=== PATIENT | female | born 1945 | race Caucasian/White ===

== ENCOUNTER 2022-07-16 13:50 | Outpatient (CLI) | payer MEDICARE, SELFPAY ==
--- NOTE | ~2022-07-16 | XR_ITS ---
XR chest 2V 07/16/2022 14:05 Indication: Cough. Shortness of breath. Chest congestion. Procedure: 2 view chest Comparison: No prior studies for comparison. Findings: Left lung clear. Heart size normal. There is atherosclerosis. Small right pleural effusion. Right basilar compressive atelectasis. No pneumothorax. No acute osseous abnormality. Impression: 1: Small right pleural effusion with underlying compressive atelectasis. Reviewed, dictated and finalized at location A. NOMY MANAGER Impression: 1: Small right pleural effusion with underlying compressive atelectasis.
== END 2022-07-16 13:51 | disposition home or self-care (01) ==
LOC: ANHIMG 13:52
PROVIDERS: PCP Family Medicine; Visit Provider Physician Assistant
DX: J90 Pleural effusion, not elsewhere classified (principal)
CPT/HCPCS: 71046

== ENCOUNTER 2022-08-03 08:01 | Outpatient (CLI) | payer MEDICARE, SELFPAY ==
--- NOTE | 2022-08-03 13:56 | WPDPFTINT ---
PFT Procedure Performed PFT Procedure Performed Spirometry with Pre/Post Bronchodilator Plethysmography (Lung Vol) Diffusing Cap (DLCO) Flow Vol Loop PFT Interpretation This is a pulmonary function test with pre and post-bronchodilator spirometry, plethysmography and diffusing capacity. The test was performed and results interpreted in accordance with the 2019 and 2005 ATS/ERS Task Force guidelines respectively using the Global Lung Function Initiative-2012 reference equations. Patient demonstrated good effort and cooperation. Reproducibility criteria were met. The quality of the pre bronchodilator spirometry maneuver was Grade A and post bronchodilator spirometry maneuver was Grade A. Findings: Spirometry: There is decreased maximal expiratory airflow at low lung volumes with a concave expiratory flow tracing. The contour the inspiratory flow tracing is normal. The pre bronchodilator FVC is 2.30 L, 86% predicted. The pre bronchodilator FEV1 is 1.46 L, 71% predicted. The pre bronchodilator FEV1: FVC ratio 64%. The post bronchodilator FVC is 2.36 L, representing a 3% increase. The post bronchodilator FEV1 is 1.52 L, representing a 4% increase. The post bronchodilator FEV1: FVC ratio 65%. Plethysmography: The total lung capacity is 3.59 L, 71% predicted. The functional residual capacity is 2.07 L, 71% predicted. The residual volume is 1.29 L, 56% predicted. Diffusion capacity: The diffusing capacity unadjusted for hemoglobin and carboxyhemoglobin is 13.0, 66% predicted. The diffusing capacity adjusted for alveolar volume is 3.82, 91% predicted. Impression: There is a combined obstructive and restrictive ventilatory abnormality. There are no guidelines to assign the severity of obstruction and restriction with a combined abnormality. In my opinion, given the mildly concave expiratory flow tracing and normal FEV1: FVC ratio and mild restrictive abnormality I would state there is a minimal obstructive abnormality and a mild restrictive abnormality resulting in a mildly decreased FEV1. There is no significant improvement after inhaling a single dose of albuterol. The diffusing capacity unadjusted for hemoglobin and carboxyhemoglobin is mildly decreased and normalizes when adjusted for alveolar volume. There are no prior studies for comparison
== END 2022-08-03 08:02 | disposition home or self-care (01) ==
LOC: ANHPFT 08:02
PROVIDERS: PCP Family Medicine; Visit Provider Physician Assistant
DX: R05.9 Cough, unspecified (principal); R06.02 Shortness of breath; Z87.891 Personal history of nicotine dependence; R94.2 Abnormal results of pulmonary function studies
CPT/HCPCS: 94060; 94726; 94729

== ENCOUNTER 2022-08-12 08:20 | Outpatient (CLI) | payer MEDICARE, SELFPAY ==
--- NOTE | ~2022-08-12 | XR_ITS ---
XR chest 2V 08/12/2022 08:41 Indication: Cough. Dyspnea. Procedure: Cough. Chest congestion. Comparison: 07/16/2022 Findings: Small right pleural effusion. Right basilar atelectasis. Stable cardiomediastinal silhouett e. There is atherosclerosis. Left lung clear. No pneumothorax. No acute osseous abnormality. Impression: 1: Stable small right pleural effusion with adjacent atelectasis. Reviewed, dictated and finalized at location B. PRESIDENT OF BUSINESS DEVELOPMENT Impression: 1: Stable small right pleural effusion with adjacent atelectasis.
== END 2022-08-12 08:21 | disposition home or self-care (01) ==
PROVIDERS: PCP Family Medicine; Visit Provider Physician Assistant
DX: R05.9 Cough, unspecified (principal); J90 Pleural effusion, not elsewhere classified; J98.11 Atelectasis
CPT/HCPCS: 71046

== ENCOUNTER → 2022-08-19 12:05 | Outpatient (CLI) | payer MEDICARE, SELFPAY ==
--- NOTE | ~2022-08-19 | MM_ITS ---
EXAMINATION: MM screening andrzej BI w deloris HISTORY: Screening mammogram TECHNIQUE: Craniocaudal and mediolateral oblique 3-D tomosynthesis images were obtained and synthetic 2-D images were generated. CAD analysis was submitted and interpreted. COMPARISON: 12/31/2016, 01/31/2016, 12/06/2014 bilateral screening mammogram examinations BREAST PARENCHYMAL COMPOSITION: There are scattered areas of fibroglandular density. FINDINGS: There is no evidence of suspicious mass, calcification, or architectural distortion to sugg est malignancy in either breast. There has been no suspicious interval change. IMPRESSION: 1. No mammographic evidence of malignancy. 2. Recommend routine screening mammography in one year. BI-RADS Category 1: Negative Reviewed, dictated and finalized at location A. RAW SUGAR BOILER
--- NOTE | ~2022-08-19 | DEXA_ITS ---
Bone Density Report Name: WILLIAM TONY Age: 77 Sex: Female Ethnicity: White Date of : 1945 Indication: postmenopausal; screening for osteoporosis; height loss; hysterectomy; Referring Provider: Nevin Dueñas Study: Bone densitometry was performed. Exam Date: August 19, 2022 Accession number: [id number] Bone Density: Region BMD T-score Z-score Classification AP Spine (L1-L4) 1.105 0.5 3.0 Normal Femoral Neck (Left) 0.818 -0.3 1.8 Normal Total Hip (Left) 1.118 1.4 3.3 Normal Femoral Neck (Right) 0.960 1.0 3.1 Normal Total Hip (Right) 1.106 1.3 3.2 Normal Total Hip Mean 1.112 1.4 3.3 Normal World Health Organization criteria for BMD impression classify patients as: Normal (T-score at or above -1.0), Osteopenia (T-score between -1.0 and -2.5), or Osteoporosis (T-score at or below -2.5). 10-year Fracture Risk: FRAX not reported because: All T-scores for Spine Total, Hip Total, Femoral Neck at or above -1.0 Previous Exams: Region Exam Age BMD T-score BMD Change BMD Change Date g/cm2 vs Baseline vs Previous Total Hip(Left) 08/19/2022 77 1.118 1.4 -0.019 -0.019 01/16/2004 58 1.136 1.6 Total Hip(Right) 08/19/2022 77 1.106 1.3 -0.070 -0.070 01/16/2004 58 1.176 1.9 *Denotes significance at 95% confidence level, LSC for Total Hip = 0.027 g/cm2 Clinical Information Provided by Patient: Has the following medical conditions: Hysterectomy Patient maximum height was 64 Menopause Age: 50 Onset of menses at age 15 Number of children 3 Impression: The patient has normal bone mass. No significant bone loss was observed. Discussion: BONE DENSITY IS ABOVE THE MINIMUM DESIRABLE LEVEL AT ALL SKELETAL SITES TESTED. This patient?s bone mineral density is above the minimum desirable level (T-score -1.0 or better) at all sites measured. The patient should follow a healthful lifestyle (good nutrition with adequate calcium and vitamin D, and appropriate weight-bearing exercise). Follow-Up: Consider repeating this study in 5 years or sooner if there is some new clinical indication. Reported by: MICHAEL on 08/19/2022 12:25:00 PM. Reviewed, dictated and finalized at location AJohn MIRELES
== END ==
PROVIDERS: PCP Family Medicine; Visit Provider Nurse Practitioner Family
DX: Z12.31 Encounter for screening mammogram for malignant neoplasm of breast (principal); N95.8 Other specified menopausal and perimenopausal disorders
CPT/HCPCS: 77063; 77067; 77080

== ENCOUNTER 2022-08-25 08:22 | Inpatient (IN) | payer MEDICARE, SELFPAY ==
[2022-08-25] VITALS (50 sets, daily range): BP systolic 113–177; BP diastolic 65–131; PULSE 49–166; RESP 14–35; TEMP 36.5–36.9; O2SAT 89–97
--- NOTE | ~2022-08-25 | XR_ITS ---
XR chest 1V portable DATE: 08/25/2022 08:56 INDICATION: Shortness of breath for 4 months TECHNIQUE: Portable AP chest on 08/25/2022 at 0854 hours COMPARISON: August 12, 2022 PA and lateral chest FINDINGS: There is opacification of the lower approximately one third of the right hemithorax due to right pleural effusion and right lower lung atelectasis/infiltrate. The left lung is hyperinflated but clear of infiltrate or consolidation. Slight blunting of left cost ophrenic angle suggests minimal left pleural effusion. Heart size appears within normal limits. Is aortic calcification and tortuosity. There is pulmonary v ascular redistribution which may indicate mild pulmonary venous hypertension. Osteopenia. IMPRESSION: Persistent right pleural effusion and right lower lung infiltrate/atelectasis Minimal left pleural effusion Pulmonary vascular redistribution, which may indicate mild pulmonary venous hypertension Hyperinflation, which may indicate obstructive airways disease; the elderly chest considerably this a ppearance. Clinical correlation is advised Aortic atherosclerosis Osteopenia Reviewed, dictated and finalized at location L. POSTER INSTALLER IMPRESSION: Persistent right pleural effusion and right lower lung infiltrate/a telectasis Minimal left pleural effusion Pulmonary vascular redistribution, which may indicate mild pulmonary venous hyp ertension Hyperinflation, which may indicate obstructive airways disease; the elderly josh st considerably this appearance. Clinical correlation is advised Aortic atherosclerosis Osteopenia
--- NOTE | ~2022-08-25 | CT_ITS ---
EXAMINATION: CT diagnostic chest wo con DATE: 08/25/2022 17:43 INDICATION: Persistent right pleural eff, r/o CA TECHNIQUE: Computed tomography (CT) of the chest was performed with 100 mL Omnipaque-350 intravenous contrast. Automated exposure control and iterative reconstruction technique were employed. The dose-l ength product was 195.57 mGy-cm. COMPARISON: None. FINDINGS: CHEST: Thoracic aorta: Moderate arch ectasia and calcification. Lung parenchyma and airways: Right lower and middle lobe collapse. Occlusion of the right bronchus in termedius. 1.8 cm island of reticular/ground glass opacity in the posterior right upper lobe. Periphe ral reticular and ground glass opacities in the inferior aspect of the right upper lobe. 7 mm groundg lass nodule in the left upper lobe. Scattered tree-in-bud opacities. Senescent changes Thoracic inlet, axillae and chest wall: Lymphadenopathy at the thoracic inlet. No thyroid mass. Mediastinum: 4.9 cm right hilar mass versus conglomeration of lymph nodes which occludes the bronchus intermedius. Extensive mediastinal lymphadenopathy, measuring up to 6.6 cm in the right paratracheal space. Heart and pericardium: Normal heart size. Aortic valve and mitral annulus calcification. Trace perica rdial fluid. Coronary artery calcifications: Moderate. Pleura: Small volume right pleural fluid collection. Upper abdomen: 6.2 cm simple appearing left lobe liver cyst. Multiple additional hypodensities in the left liver lobe, concerning for metastatic disease.. Thoracic bones: No acute osseous finding in the chest. IMPRESSION: Right hilar mass versus conglomerate lymph nodes occlude the right bronchus intermedius, causing righ t middle lobe and right lower lobe collapse. Significant mediastinal lymphadenopathy. Thoracic inlet lymphadenopathy. Scattered pulmonary opacities may reflect infectious/inflammatory foci, noting that neoplastic lesions are not excluded. Small right pleural effusion. Multiple hypodensities in the live r concerning for metastatic disease, given the above findings. Reviewed, dictated and finalized at location K. S CONSULTANT IMPRESSION: Right hilar mass versus conglomerate lymph nodes occlude the right bronchus int ermedius, causing right middle lobe and right lower lobe collapse. Significant mediastinal lymphadenopathy. Thoracic inlet lymphadenopathy. Scattered pulmonar y opacities may reflect infectious/inflammatory foci, noting that neoplastic le sions are not excluded. Small right pleural effusion. Multiple hypodensities in the liver concerning for metastatic disease, given the above findings.
--- NOTE | ~2022-08-25 | US_ITS ---
EXAMINATION: US biopsy lymph node DATE: 08/27/2022 14:50 INDICATION: Right supraclavicular lymphadenopathy. TECHNIQUE: The procedure including the risks, benefits, and alternatives was discussed with the patie nt. Risks discussed included bleeding and infection. The patient understood the risks and agreed to p roceed. The skin overlying the right neck was prepped and draped in usual sterile fashion. Anestheti c was administered with 1% lidocaine subcutaneously. An 18 gauge core biopsy needle was then used to obtain 3 core biopsy specimens under continuous sonographic guidance. The entry site was cleaned and dressed. There were no immediate complications. FINDINGS: Ultrasound images demonstrate the needle in an enlarged right supraclavicular lymph node. IMPRESSION: 1. Ultrasound-guided core needle biopsy of an enlarged right supraclavicular lymph node. Reviewed, dictated and finalized at location A. R D ENGINEER IMPRESSION: 1. Ultrasound-guided core needle biopsy of an enlarged right supraclavicular ly mph node.
--- NOTE | 2022-08-25 08:41 | ECG_ITS ---
Measurements Intervals [place] Rate: 153 P: UT: 0 QRS: 9 QRSD: 81 T: 86 QT: 272 QTc: 434 Interpretive Statements ATRIAL FIBRILLATION WITH RAPID VENTRICULAR RESPONSE DELAYED PRECORDIAL R/S TRANSITION BORDERLINE ST-T WAVE ABNORMALITY- HIGH LATERAL LEADS BASELINE ARTIFACT- I, II, III, AVR, AVL, AVF, V6 ABNORMAL ECG NO PREVIOUS ECG AVAILABLE FOR COMPARISON Electronically Signed On 08-25-2022 13:10:56 HARDNESS INSPECTOR by Heriberto Spain D.O.
[2022-08-25] MEDS: dilTIAZem HCl INJ 25 MG/5 ML VIAL 20 MG IV PUSH (08:50)
[2022-08-25 08:51] LABS: Basophils Percent Auto 0.5 % (0.2-1.2); Eosinophils Absolute Auto 0.2 K/mm3 (0-0.3); Eosinophils Percent Auto 2.7 % (0-4.4); Hematocrit 44.9 % (37.0-47.0); Immature Granulocyte Absolute 0.07 K/mm3 (0.00-0.031); Immature Granulocyte Percent A 0.8 % (0-0.5); Lymphocytes Absolute Auto 1.28 K/mm3 (0.9-3.2); Lymphocytes Percent Auto 15.5 % (18.3-44.2); Mean Corpuscular HGB Conc 33.4 g/dl (32-36); Mean Corpuscular Hemoglobin 31.8 pg (26-34); Mean Corpuscular Volume 95.1 fl (80-100); Mean Platelet Volume 9.4 fl (7.4-10.4); Monocytes Absolute Auto 0.6 K/mm3 (0.1-0.6); Monocytes Percent Auto 7.1 % (2.6-8.5); Neutrophils Absolute Auto 6.1 K/mm3 (1.3-6.7); Neutrophils Percent Auto 73.4 % (45.5-73.1); Platelet Count Result 254 k/mm3 (150-375); Red Blood Count 4.72 M/mm3 (4.2-5.4); Red Cell Distribution Width 12.5 % (11.5-14.5); White Blood Count 8.3 K/mm3 (4.5-10.0)
[2022-08-25 09:01] LABS: Alanine Aminotransferase 25 U/L (6-35); Albumin Level 4.4 g/dL (3.5-5.1); Alkaline Phosphatase 95 U/L (38-126); Anion Gap 9 mmol/L (8-16); Aspartate Amino Transferase 29 U/L (14-36); Bilirubin,Total 0.6 mg/dL (0.2-1.3); Blood Urea Nitrogen 11 mg/dL (7-17); Calcium 9.6 mg/dL (8.4-10.2); Carbon Dioxide 27 mmol/L (22-30); Chloride 102 mmol/L (98-107); Estimated CRCL calculation 46 ml/min; Estimated Glomerular Filt Rate > 60; Glucose 160 mg/dL (65-110); Potassium 4.4 mmol/L (3.4-5.0); Sodium 138 mmol/L (137-145)
[2022-08-25 09:04] LABS: Prothrombin Time 12.6 Seconds (11.1-14.7)
[2022-08-25] MEDS: dilTIAZem 100 MG/100 ML 100 MG/100 ML BAG 10 MG IV CONT (09:04)
[2022-08-25 09:12] LABS: NT Pro B Type Natriuretic Pept 2680 pg/mL (19.9-100); Troponin I < 0.012 ng/mL (0.000-0.034)
--- NOTE | 2022-08-25 09:14 | PC.NURSE ---
Dr. Barr gave verbal order diltiazem at 10mg/hr.
--- NOTE | 2022-08-25 09:29 | ED.SOB ---
HPI - SOB/Dyspnea General Chief Complaint: Shortness of Breath/Dyspnea Stated Complaint: SOB Time Seen by Provider: 08/25/22 08:39 History of Present Illness HPI Narrative: Pt has been getting SOB with exertion for months. Pt thought it was related to a viral infection she had. Pt denies CP. Pt says she has noticed her heart beating fast intermittently but not persistently until this morning. Pt denies CP. Pt does feel SOB on exertion but not at rest. Related Data Allergies Allergy/AdvReac Type Severity Reaction Status Date / Time loratadine Allergy Unknown unk Verified 08/14/22 13:01 Review of Systems Review of Systems: All systems reviewed & are unremarkable except as noted in HPI and below PMFSH Past Medical History Medical History (Updated 08/25/22 @ 16:34 by Maria Fernanda Masters MD) Depression with anxiety Essential hypertension Gout Mixed hyperlipidemia Type 2 diabetes mellitus without complications Surgical History Surgical History (Updated 08/25/22 @ 16:29 by Maria Fernanda Masters MD) H/O: hysterectomy For fibroids Family History Family History (Updated 08/25/22 @ 14:13 by Adenike Phoenix NP) Mother Chronic obstructive pulmonary disease Other Alcoholism Social History Social History (Updated 08/25/22 @ 16:29 by Maria Fernanda Masters MD) Social History: 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 She is . She quit smoking many years ago. Code status full code Smoking packs per day: 2 Smoking cigarettes per day: 40.0 Years smoked: 15 Smoking pack-years: 30.00 Smoking status: Former smoker Tobacco type: cigarettes Second hand tobacco smoke exposure: No Smoking end date: 06/21/01 Alcohol intake: never Substance use: never Living arrangements: with family Occupation/Education: retired Gender identity (if verbalized by the patient): Female Sexual Orientation (if Verbalized by the Patient): Straight or Heterosexual Exam Const: General: healthy appearing Nutritional Appearance: well nourished Orientation/consciousness: patient oriented x3 Limitations: no limitations Neck: Neck: normal visual inspection Resp: Effort & Inspection: normal respiratory effort Auscultation: clear to auscultation bilaterally Cardio: Rate: tachycardic Rhythm: abnormal rhythm GI: GI Palp: Yes Soft to palpation Auscultation: normal bowel sounds Skin: General skin exam: normal color Neuro: General: patient oriented x3, moves all extremities and no focal motor deficits Speech: normal speech Extrem: General: normal to inspection and no clubbing, cyanosis or edema Psych: Mental Status: mental status grossly normal Affect: normal affect Attitude: cooperative Course Vital Signs Vital signs: Vital Signs Temperature 97.7 F 08/25/22 08:32 Respiratory Rate 19 08/25/22 08:32 Blood Pressure 177/119 H 08/25/22 08:32 Pulse Oximetry 95 08/25/22 08:32 Oxygen Delivery Room Air 08/25/22 08:32 Temperature 98.5 F 08/25/22 12:23 Pulse Rate 70 08/25/22 18:05 Respiratory Rate 18 08/25/22 16:00 Blood Pressure 113/97 H 08/25/22 16:00 Pulse Oximetry 94 08/25/22 16:00 Oxygen Delivery Room Air 08/25/22 08:48 MDM - SOB/Dyspnea MDM Narrative Medical decision making narrative: a fib with rvr present on ekg kasandra been in a fib for months given SOB on exertion. Will start cardizem bolus and drip for rate control and check labs to rule out electolyte issue or cardiac injury. pt will need admission for further evaluation. discussed with Dr Lawler and agrees to admit. discussed with lisseth Osullivan cardiology and they will see pt. Lab Data 08/25/22 08:45 08/25/22 08:45 Labs: Lab Results 08/25/22 08/25/22 08/25/22 Range/Units 08:45 08:45 08:45 WBC 8.3 (4.5-10.0) K/mm3 RBC 4.72 (4.2-5.4) M/mm3 Hgb 15.0 (12.0-15.0) g/dL Hct 44.9 (
--- NOTE | 2022-08-25 09:38 | PC.NURSE ---
Patient stated that she has not taken any of her medication today.
[2022-08-25] MEDS: FUROSEMIDE INJ 40 MG/4 ML VIAL 20 MG IV PUSH (10:09)
[2022-08-25 12:27] LABS: Troponin I < 0.012 ng/mL (0.000-0.034)
--- NOTE | 2022-08-25 12:27 | PM.IMHP ---
H&P: HPI History of Present Illness Date/Time: 08/25/22 12:27 Chief Complaint: Shortness of breath Narrative: This is a 77-year-old female patient who has been coughing and states that she has been dealing with shortness of breath for several months. The patient feels like she has an upper respiratory infection that may be viral. She has no prior history of atrial fibrillation. The patient states that she is unaware of any diagnosis of atrial fibrillation but she does have intermittent palpitations. The patient does not wear oxygen at home and she feels more short of breath with exertion. Shortness of breath is relieved with rest. Her glucose is 160. She does have a history of diabetes. First troponin is negative BNP is 2680. Chest x-ray was read asPersistent right pleural effusion and right lower lung infiltrate/atelectasis Minimal left pleural effusion Pulmonary vascular redistribution, which may indicate mild pulmonary venous hypertension Hyperinflation, which may indicate obstructive airways disease; the elderly chest considerably this appearance. Clinical correlation is advised Aortic atherosclerosis Osteopenia?the patient stated that she has had pulmonary function test and stated she does not have COPD. The patient was found to be in AFib with RVR she was given Cardizem IV and then started on a Cardizem drip. She was also given IV Lasix. The patient is being admitted to observation status on the date of service of 08/25/2022. Review of Systems Review of Systems: See HPI All systems reviewed & are unremarkable except as noted in HPI and below Constitutional: Constitutional: Reports as per HPI and Reports no additional constitutional complaints Eyes: Eyes: Reports as per HPI and Reports no additional eye complaints ENT: Reports system reviewed and no additional complaints, except as documented and Reports Normal hearing present Cardiovascular: Cardiovascular: Reports no additional cardiovascular complaints Respiratory: Respiratory: Reports no additional respiratory complaints and Reports no additional respiratory complaints Gastrointestinal: Gastrointestinal: Reports as per HPI and Reports no additional gastrointestinal complaints Musculoskeletal: Musculoskeletal: Reports no additional musculoskeletal complaints Integumentary/Breasts: Skin/Breast: Reports system reviewed and no additional complaints, except as docu and Reports as per HPI Neurologic: Reports system reviewed and no additional complaints, except as documented, Reports as per HPI and Reports Normal hearing present Psychiatric: Psychiatric: Reports no additional psychiatric complaints and Reports as per HPI Endocrine: Endocrine: Reports no additional endocrine complaints Hematologic/Lymphatic: Hematologic/Lymphatic: Reports no additional hematologic/lymphatic complaints Allergic/Immunologic: Allergic/Immunologic: Reports no additional allergic/immunologic complaints PMF Past Medical History Medical History (Updated 08/25/22 @ 14:12 by Adenike Phoenix NP) Depression with anxiety Essential hypertension Gout Mixed hyperlipidemia Type 2 diabetes mellitus without complications Surgical History Surgical History (Updated 08/25/22 @ 14:11 by Adenike Phoenix NP) H/O: hysterectomy Family History Family History (Updated 08/25/22 @ 14:13 by Adenike Phoenix NP) Mother Chronic obstructive pulmonary disease Other Alcoholism Social History Social History (Updated 08/25/22 @ 14:17 by Adenike Phoenix NP) Social History: 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 She quit smoking many years ago. Code status full code Smoking packs per day: 2 Smoking cigarettes per day: 40.0 Years smoked: 15 Smoking pack-years: 30.00 Smoking status: Former smoker Tobacco type: cigarettes Second hand tobacco smoke exposure: No Smoking end date: 06/21/01 Alcohol intake: never [place]
[2022-08-25 15:38] LABS: Troponin I < 0.012 ng/mL (0.000-0.034)
--- NOTE | 2022-08-25 15:42 | PM.CNCAR ---
Assessment and Plan Assessment and plan (1) Atrial fibrillation with rapid ventricular response: Code(s): I48.91 - Unspecified atrial fibrillation Status: Acute Assessment and Plan: New onset of acute AFib RVR, uncertain duration. Rate is coming under control with IV Cardizem; add po metoprolol Continue full-dose Lovenox for now, later switch to a DOAC Likely will proceed with a cardioversion either later this hospitalization (with ABRIL) or after 4 weeks of anticoagulation as an outpatient Echo pending (2) Acute diastolic heart failure: Code(s): I50.31 - Acute diastolic (congestive) heart failure Status: Acute Assessment and Plan: Patient presents with acute diastolic heart failure, likely due to AFib RVR, rule out underlying cardiomyopathy. Continue furosemide 40 mg IV push b.i.d. Echo pending to assess LV function and for any valvular disease TSH pending Daily BMP Anti-tussives for cough (3) Pleural effusion: Code(s): J90 - Pleural effusion, not elsewhere classified Status: Acute Assessment and Plan: Patient had a moderate sized isolated right pleural effusion by chest x-rays in June and July, when she was not in heart failure. This is concerning for an underlying malignancy CT of the chest Consider diagnostic thoracentesis if it does not resolve w/ diuresis (4) Essential hypertension: Code(s): I10 - Essential (primary) hypertension Status: Acute Assessment and Plan: Mildly elevated; adjusting medications History of Present Illness History of Present Illness Consult date/time: 08/25/22 15:42 Reason For Visit: A Fib With RVR Narrative: Jessica Waldron is a 77-year-old female whom I was asked to see at the request of Adenike Phoenix for my advice and opinion regarding her new onset AFib RVR, in consultation. She also has a history of hypertension, mixed hyperlipidemia, diabetes, and depression. Former smoker. No h/o heart disease. The patient had an upper respiratory infection in April and has been short of breath with a minimally productive cough since then. She has been back to see Dr. Callahan and his PA over last few months and has been tried on 3 inhalers, a Medrol Dosepak and antibiotics without improvement. When she has been in the office, her heart rate has been in the 70s. However she has noted palpitations sometimes particularly with coughing. She has gotten progressively weaker, with more coughing, more shortness of breath, and no energy. She has no appetite and has lost 8-10 lb. No fevers, chest pain, history of cancer or thyroid disease. No bleeding problems. Was able to walk 1.5-2 miles daily until this illness. She was found to be in AFib RVR in the emergency room and started on a Cardizem drip at 15 milligrams/hour, and Lovenox full dose. Her heart rate has improved from 150s down to 110. She is also found to be in congestive heart failure. She was given 1 dose of furosemide 20 mg IV push. Review of Systems Constitutional: Constitutional: Reports difficulty sleeping (Due to frequent coughing), Reports fatigue, Denies fever(s), Reports lethargy and Reports weakness Eyes: Eyes: Reports no additional eye complaints ENT: Denies epistaxis Cardiovascular: Cardiovascular: Denies chest pain, Denies pedal edema, Denies lightheadedness, Reports palpitations and Reports dyspnea Respiratory: Respiratory: Reports chest congestion, Reports cough, Reports dyspnea and Reports dyspnea on exertion Gastrointestinal: Gastrointestinal: Denies abdominal pain and Denies hematochezia Genitourinary: Genitourinary: Denies hematuria Musculoskeletal: Musculoskeletal: Reports no additional musculoskeletal complaints Integumentary/Breasts: Skin/Breast: Reports system reviewed and no additional complaints, except as docu Neurologic: Reports system reviewed and no additional complaints, except as documented, Denies behavior
[2022-08-25 16:50] LABS: Glucose Point of Care 129 mg/dl (65-105)
--- NOTE | 2022-08-25 17:21 | ADMIMU ---
This patient, Jessica Waldron, was admitted to IMU status, and placed in Intensive Care Unit-5. Patient/family oriented to hospital policies and general routines including ID bracelet, bed and alarms, visiting hours, pain management, procedures, bathroom and other care routines, personal items, smoking policy, room service/diet, and visiting hours. Valuables list has been completed. Information on how to activate the Rapid Response Team has been discussed. Patient/Family are encouraged to report perceived risks to care and to ask questions if they do not understand what they are told or what they should do.
[2022-08-25] MEDS: FUROSEMIDE INJ 40 MG/4 ML VIAL IV PUSH (18:04)
[2022-08-25] MEDS: ENOXAPARIN 80 MG/0.8 ML SYRINGE SUB-Q (18:05)
[2022-08-25] MEDS: METOPROLOL TARTRATE 25 MG TABLET PO (18:05)
--- NOTE | 2022-08-25 18:38 | ECG_ITS ---
Rate 72 WV 153 QRSd 90 QT 413 QTc 454 --[place]-- P 214 QRS 147 T 99 SINUS RHYTHM LIMB LEAD REVERSAL ATRIAL AND VENTRICULAR PREMATURE COMPLEXES BASELINE ARTIFACT- I, II, III, AVR, AVL, AVF, V5 BORDERLINE ECG COMPARED TO ECG 08/25/2022 08:37:25 SINUS RHYTHM NOW PRESENT Electronically Signed On 08-27-2022 13:31:26 SYSTEM SOFTWARE DEVELOPER by Heriberto MIRELES
[2022-08-25] MEDS: guaiFENesin/DEXTROMETHORPHAN 10 ML UDC PO (20:52)
[2022-08-25 20:57] LABS: Glucose Point of Care 156 mg/dl (65-105)
[2022-08-26] VITALS (14 sets, daily range): BP systolic 111–152; BP diastolic 58–88; PULSE 56–83; RESP 16–23; TEMP 36.6–37.2; O2SAT 92–95; BMI 31.4
--- NOTE | 2022-08-26 | ECHO_ITS ---
Patient Info Name: Jessica Waldron Age: 77 years : 1945 Gender: Female Ht: 62 in Wt: 175 lbs BSA: 1.90 m2 HR: 62 bpm BP: 127 / 58 mmHg Heart Rhythm: Sinus Rhythm Technical Quality: Fair Exam Date: 08/26/2022 8:27 AM Exam Location: [facility] Patient Status: Outpatient Admit Date: 08/25/2022 Staff Ordering Physician: Donna Lawler MD Certified Recreational Therapist: Zoila Redding RDCS Attending Provider: Donna Lawler MD Exam Type: CA echo doppler color flow Study Info Indications - afib Complete two-dimensional, color flow and Doppler transthoracic echocardiogram is performed. Summary 1. Complete two-dimensional, color flow and Doppler transthoracic echocardiogram is performed. 2. Left ventricular chamber dimension is normal. 3. Left ventricular systolic function is normal, estimated at 55-60%. 4. Right ventricular systolic function is normal. 5. Left atrial chamber dimension is mildly enlarged. 6. There is moderate aortic valve calcification. 7. There is mild aortic valve regurgitation. 8. The mitral valve has thickened leaflets and calcified leaflets. 9. The mitral valve annulus is moderately calcified. 10. There is moderate mitral valve regurgitation with an eccentric jet. 11. There is mild tricuspid valve regurgitation. 12. There is mild aortic atherosclerosis. Left Ventricle Left ventricular chamber dimension is normal. Left ventricular systolic function is normal, estimated at 55-60%. There is no increased left ventricular wall thickness. The left ventricular diastolic function is indeterminate. Right Ventricle Right ventricular chamber dimension is normal. Right ventricular systolic function is normal. Left Atria Left atrial chamber dimension is mildly enlarged. Right Atria Right atrial chamber dimension is normal. Atrial Septum Intact interatrial septum visualized by color flow imaging. Aortic Valve The aortic valve is trileaflet. There is no aortic valve stenosis. There is mild aortic valve regurgitation. There is moderate aortic valve calcification. Pulmonic Valve The pulmonic valve is not well visualized. Mitral Valve The mitral valve has thickened leaflets and calcified leaflets. There is no mitral valve stenosis. There is moderate mitral valve regurgitation with an eccentric jet. The mitral valve annulus is moderately calcified. Tricuspid Valve There is mild tricuspid valve regurgitation. Pericardium/Pleural There is no pericardial effusion. Inferior Vena Cava Normal inferior vena cava with >50% collapse upon inspiration consistent with normal right atrial pressure, 3 mmHg. Aorta The aortic root size at the sinus of Valsalva is normal. There is mild aortic atherosclerosis. Left Ventricular Outflow Tract Name Value Normal LVOT 2D LVOT Diameter 2.0 cm LVOT Doppler LVOT Peak Gradient 3 mmHg LVOT Mean Gradient 2 mmHg LVOT VTI 22 cm LVOT VTI/AV VTI Ratio 0.6 LVOT Stroke Volume 72 ml
[2022-08-26 04:58] LABS: Basophils Percent Auto 0.6 % (0.2-1.2); Eosinophils Absolute Auto 0.2 K/mm3 (0-0.3); Eosinophils Percent Auto 3.3 % (0-4.4); Hematocrit 41.1 % (37.0-47.0); Hemoglobin 13.7 g/dL (12.0-15.0); Immature Granulocyte Absolute 0.04 K/mm3 (0.00-0.031); Immature Granulocyte Percent A 0.6 % (0-0.5); Lymphocytes Absolute Auto 1.39 K/mm3 (0.9-3.2); Mean Corpuscular HGB Conc 33.3 g/dl (32-36); Mean Corpuscular Hemoglobin 31.4 pg (26-34); Mean Corpuscular Volume 94.1 fl (80-100); Mean Platelet Volume 9.6 fl (7.4-10.4); Monocytes Absolute Auto 0.6 K/mm3 (0.1-0.6); Neutrophils Absolute Auto 4.1 K/mm3 (1.3-6.7); Neutrophils Percent Auto 64.5 % (45.5-73.1); Platelet Count Result 230 k/mm3 (150-375); Red Blood Count 4.37 M/mm3 (4.2-5.4); Red Cell Distribution Width 12.5 % (11.5-14.5); White Blood Count 6.3 K/mm3 (4.5-10.0)
[2022-08-26 05:09] LABS: Magnesium 1.9 mg/dL (1.6-2.3)
[2022-08-26 05:12] LABS: Lactic Acid Reflex 1.2 mmol/L (0.7-2.0)
[2022-08-26] MEDS: ENOXAPARIN 80 MG/0.8 ML SYRINGE SUB-Q (06:36)
[2022-08-26] MEDS: METOPROLOL TARTRATE 25 MG TABLET PO ×3 (06:36→21:44)
[2022-08-26] MEDS: guaiFENesin/DEXTROMETHORPHAN 10 ML UDC PO ×3 (06:36→23:36)
[2022-08-26] MEDS: UMECLIDINIUM/VILANTEROL 62.5-25 MCG ELLIPTA 1 PUFF INHALATION (08:11)
[2022-08-26] MEDS: FUROSEMIDE INJ 40 MG/4 ML VIAL IV PUSH (09:31)
[2022-08-26 09:35] LABS: Glucose Point of Care 152 mg/dl (65-105)
[2022-08-26 11:56] LABS: Glucose Point of Care 140 mg/dl (65-105)
[2022-08-26 13:48] LABS: Hemoglobin A1C 6.7 % (<5.7)
--- NOTE | 2022-08-26 14:35 | PM.PNCARD ---
Progress Note: A&P Assessment and Plan (1) Atrial fibrillation with rapid ventricular response: Code(s): I48.91 - Unspecified atrial fibrillation Status: Acute Assessment and Plan: New onset of acute AFib RVR, uncertain duration. converted to sinus rhythm; continue p.o. metoprolol Continue full-dose Lovenox for now as the patient may need procedures, later switch to a DOAC (2) Acute diastolic heart failure: Code(s): I50.31 - Acute diastolic (congestive) heart failure Status: Acute Assessment and Plan: Patient presents with acute diastolic heart failure, likely due to AFib RVR, rule out underlying cardiomyopathy. resolved. DC furosemide (3) Pleural effusion: Code(s): J90 - Pleural effusion, not elsewhere classified Status: Acute Assessment and Plan: Patient had a moderate sized isolated right pleural effusion by chest x-rays in June and July, when she was not in heart failure. CT of the chest suggests and malignancy with right hilar mass and lymphadenopathy is well as possible liver lesions Discussed with patient and family; has a mass or tumor, could be cancer. Understandably upset. needs a biopsy discussed with hospitalist. Will consult Pulmonary to see if bronchoscopy may help but also may need CT-guided biopsies and/or thoracentesis Family requests diagnosis and plan expedited (4) Essential hypertension: Code(s): I10 - Essential (primary) hypertension Status: Acute Assessment and Plan: Mildly elevated; adjusting medications Subjective Date/time seen: follow-up for AFib new onset, rapid ventricular response. New onset of acute diastolic heart failure. Echo showed EF 55-60% with moderate MR. She has a chronic right pleural effusion and CT scan this admission showed a right hilar mass and lymphadenopathy, possible hepatic masses. 08/26/22 14:35 Pt converted to normal sinus rhythm and is breathing better but still has a lot of coughing. daughter Holly and granddaughter at bedside Review of Systems Review of Systems: able to walk across room without shortness of breath. Frequent coughing kept her awake again last night. Does not like codeine. No dizziness or chest pain. Exam Const: General: cooperative, healthy appearing and comfortable; No confusion Orientation/consciousness: oriented to person, patient oriented x3 and No confusion HENMT: Mouth: Yes moist mucous membranes Eyes: EOM: EOMs intact bilaterally Neck: Neck: supple Resp: Effort & Inspection: normal respiratory effort Auscultation: diminished lung sounds on the right ( Base) Cardio: Rate: regular rate Rhythm: regular rhythm Heart sounds: no murmurs GI: Inspection: normal to inspection GI Palp: No abdominal tenderness Skin: General skin exam: normal color and no rashes or lesions noted Neuro: General: oriented to person, patient oriented x3 and No confusion Extrem: Right lower extremity: no edema Left lower extremity: no edema Psych: Appearance: grossly normal Mental Status: mental status grossly normal Objective Data Vital Signs Vital Signs: Vital Signs - 24 hr 08/25/22 16:00 08/25/22 16:00 08/25/22 18:05 Temperature Pulse Rate 64 82 70 Respiratory Rate 18 Blood Pressure 113/97 H Pulse Oximetry 94 Oxygen Delivery Fraction of Inspired Oxygen 08/25/22 20:00 08/25/22 20:00 08/25/22 20:00 Temperature 98.2 F Pulse Rate 63 62 62 Respiratory Rate 18 Blood Pressure 135/72 Pulse Oximetry 95 93 Oxygen Delivery Room Air Fraction of Inspired Oxygen 08/25/22 21:53 08/25/22 22:19 08/26/22 00:00 Temperature Pulse Rate 58 L 49 L 63 Respiratory Rate Blood Pressure Pulse Oximetry 95 Oxygen Delivery Room Air Fraction of Inspired Oxygen 08/26/22 00:00 08/26/22 00:00 08/26/22 03:48 Temperature 98 F Pulse Rate 56 L 56 L 59 L Respiratory Rate 18 Blood Pressure 127/58
--- NOTE | 2022-08-26 14:57 | PM.IMPN ---
Progress Note: A&P Assessment and Plan (1) Atrial fibrillation with rapid ventricular response: Code(s): I48.91 - Unspecified atrial fibrillation Status: Acute Assessment and Plan: New onset of acute AFib RVR, uncertain duration. Started on Cardizem drip now converted to sinus rhythm On metoprolol oral Full-dose Lovenox currently may need to hold for potential biopsy (2) Type 2 diabetes mellitus without complications: Qualifiers: Diabetes mellitus detention insulin use: without local intermodal truck driver use Qualified Code(s): E11.9 - Type 2 diabetes mellitus without complications Code(s): E11.9 - Type 2 diabetes mellitus without complications Status: Acute Assessment and Plan: Check A1c Hypoglycemic protocol Sliding scale insulin Hold metformin (3) Mixed hyperlipidemia: Code(s): E78.2 - Mixed hyperlipidemia Status: Acute Assessment and Plan: Atorvastatin (4) Essential hypertension: Code(s): I10 - Essential (primary) hypertension Status: Acute Assessment and Plan: Stable (5) Gout: Code(s): M10.9 - Gout, unspecified Status: Acute (6) Depression with anxiety: Code(s): F41.8 - Other specified anxiety disorders Status: Acute (7) Acute diastolic heart failure: Code(s): I50.31 - Acute diastolic (congestive) heart failure Status: Acute Assessment and Plan: Patient presents with acute diastolic heart failure, likely due to AFib RVR, rule out underlying cardiomyopathy. This is resolved (8) Pleural effusion: Code(s): J90 - Pleural effusion, not elsewhere classified Status: Acute Assessment and Plan: Right pleural effusion which has been persistent since June. CT chest with right hilar mass lymphadenopathy and potential liver lesions Suggested biopsy of the liver lesions Discussed with pulmonary Further workup in process Subjective Date/time seen: 08/26/22 14:57 Interval history: Cough ongoing since past 4 months denies shortness of breath. AFib back to sinus rhythm discussed with cardiology and pulmonary Review of Systems Review of Systems: All systems reviewed & are unremarkable except as noted in HPI and below Exam Narrative: GENERAL: The patient is well developed, not in acute distress HEENT: Nonicteric sclerae, PERRLA, EOMI. Oropharynx clear. Moist mucous membranes. Conjunctivae appear well perfused. CHEST: Chest wall is nontender. HEART: Regular rate and rhythm without murmur, rubs, or gallops LUNGS: Clear to auscultation bilaterally. no respiratory distress ABDOMEN: Soft, positive bowel sounds, non-tender, no organomegaly. SKIN: No rash, no excessive bruising, petechiae, or purpura. NEUROLOGIC: Cranial nerves II-XII intact, alert and oriented x 3, no gross motor deficits EXTREMITIES: no edema, cyanosis or clubbing Objective Data Vital Signs Vital Signs: Vital Signs - 24 hr 08/25/22 16:00 08/25/22 16:00 08/25/22 18:05 Temperature Pulse Rate 64 82 70 Respiratory Rate 18 Blood Pressure 113/97 H Pulse Oximetry 94 Oxygen Delivery Fraction of Inspired Oxygen 08/25/22 20:00 08/25/22 20:00 08/25/22 20:00 Temperature 98.2 F Pulse Rate 63 62 62 Respiratory Rate 18 Blood Pressure 135/72 Pulse Oximetry 95 93 Oxygen Delivery Room Air Fraction of Inspired Oxygen 08/25/22 21:53 08/25/22 22:19 08/26/22 00:00 Temperature Pulse Rate 58 L 49 L 63 Respiratory Rate Blood Pressure Pulse Oximetry 95 Oxygen Delivery Room Air Fraction of Inspired Oxygen 08/26/22 00:00 08/26/22 00:00 08/26/22 03:48 Temperature 98 F Pulse Rate 56 L 56 L 59 L Respiratory Rate 18 Blood Pressure 127/58 L Pulse Oximetry 92 93 Oxygen Delivery Room Air Fraction of Inspired Oxygen 08/26/22 03:48 08/26/22 04:00 08/26/22 06:36 Temperature 98.5 F Pulse Rate 59 L 62 63 Respiratory Rate 18 Blood Pressure 12
--- NOTE | 2022-08-26 16:24 | PM.CNPUL ---
Assessment and Plan Assessment and plan (1) Lung mass: Code(s): R91.8 - Other nonspecific abnormal finding of lung field Status: Acute Assessment and Plan: patient with a 14 pack year tobacco use, quit 1991, now with a right upper lobe posterior segment 1 0.8 cm ground-glass opacity, 4.9 cm right hilar mass versus lymph nodes and includes the bronchus intermedius with extensive mediastinal lymphadenopathy and right supraclavicular lymph nodes. There are multiple cysts in the liver. I reviewed the imaging with Dr. Lopez and will initiate the workup with a ultrasound-guided biopsy of the right supraclavicular lymph node. I discussed the benefits and risks with the patient and she is willing to proceed. I have ordered this test for 08/27/2022 and I discussed her full-dose Lovenox with the radiology department and she can receive her dose on 08/26/2022 at 6:00 p.m. and then will discontinue the Lovenox. Regarding her cough, I will place the patient on benzonatate 200 mg t.i.d. and guaifenesin DM 10 mg p.o. q.6 hours. I see no evidence of emphysematous changes on her CT scan and I am not convinced she has COPD and will discontinue the Anoro Ellipta. Will follow with you. Discussed with Dr. De Souza and John. History of Present Illness History of Present Illness Consult date: 08/26/22 Chief complaint: A Fib With RVR Narrative: 08/26/2022: This is a new pulmonary consult for right lung mass. 77-year-old with a history of hypertension. In April of 2022 the patient developed sore throat, cough and congestion. She was seen by her PCP on 07/13 and given steroids and antibiotics and an albuterol inhaler and this provided no benefit. chest x-ray on 07/16/2022 showed a small right pleural effusion. In July of 2022 she was given a 2nd inhaler and had a repeat chest x-ray on 08/12/2022 with a stable right small pleural effusion. In August of 2022 patient had persistent symptoms and was given prednisone with no improvement. Patient has dyspnea on exertion progressively got worse and she used to walk 2 miles over 45 minutes and she could only walk room to room and she presented to the hospital on 08/25/2022. Patient was found to be in AFib with RVR. Patient had a chest x-ray with right pleural effusion and right lower lung consolidation and a CT scan of the chest demonstrated a right hilar mass, right supraclavicular lymph nodes and cystic lesions of the liver. Throughout all this the patient denied fever, chills, rigors, chest pain. She tested herself 8 times for [place] it and they were all negative. She has never had hemoptysis. She has 5 lb weight loss in the last 3 months. Patient smoked tobacco from age [age] at 1 pack per day and from age [age] at 1 pack per day. Total pack years 14. Patient was exposed to secondhand smoke from both of her parents and from her until age 26. patient denies any vaping, illicit drug use, sandblasting, welding, asbestos were, professional painting or steel ball mill mixer. 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 In the emergency room the patient was found to be in AFib with RVR and was treated with a Cardizem drip and converted to sinus rhythm. She was treated with full-dose Lovenox. She has converted to sinus rhythm. 08/26 currently the patient complains of dry cough. Room air saturations are 93%. White blood cell count is 6.3, creatinine was 0.9 on 08/25/2022. DATA 08/25/2022 EXAMINATION: CT diagnostic chest wo con INDICATION: Persistent right pleural eff, r/o CA TECHNIQUE: Computed tomography (CT) of the chest was performed with 100 mL Omnipaque-350 intravenous contrast. Automated exposure control and iterative reconstruction technique were employed. The dose-length product was 195.57 mGy-cm. COMPARISON: None. FINDINGS: CHEST: Thoracic aorta: Moderate arch ectasia and calcification. Lung parenchyma and air
[2022-08-26 16:49] LABS: Glucose Point of Care 151 mg/dl (65-105)
[2022-08-26] MEDS: BENZONATATE 100 MG CAPSULE 200 MG PO (17:20)
[2022-08-26] MEDS: ATORVASTATIN 20 MG TABLET PO (21:44)
[2022-08-26 21:53] LABS: Glucose Point of Care 147 mg/dl (65-105)
[2022-08-26] MEDS: MELATONIN 5 MG TABLET PO ×2 (22:17→23:26)
[2022-08-27] VITALS (34 sets, daily range): BP systolic 110–154; BP diastolic 66–93; PULSE 48–161; RESP 8–29; TEMP 36.8–37; O2SAT 91–100
[2022-08-27 08:10] LABS: Glucose Point of Care 164 mg/dl (65-105)
[2022-08-27] MEDS: METOPROLOL TARTRATE 25 MG TABLET PO ×3 (08:46→21:15)
[2022-08-27] MEDS: METOPROLOL TARTRATE INJ 5 MG/5 ML VIAL IV PUSH (08:46)
[2022-08-27] MEDS: dilTIAZem 100 MG/100 ML 100 MG/100 ML BAG IV CONT (09:45)
--- NOTE | 2022-08-27 10:55 | PM.PNCARD ---
Progress Note: A&P Assessment and Plan (1) Atrial fibrillation with rapid ventricular response: Code(s): I48.91 - Unspecified atrial fibrillation Status: Acute Assessment and Plan: New onset of acute AFib RVR, uncertain duration. converted to sinus rhythm, but now back and AFib RVR increase Cardizem drip to 10 milligrams/hour, also Cardizem 10 mg IV push p.r.n. for tachycardia Increase metoprolol to 37.5 mg q 8H looks like the AFib may be difficult to control;may need to add p.o. amiodarone. Reviewed risks of long-term side effects. Continue full-dose Lovenox for now as the patient may need procedures, later switch to a DOAC (2) Acute diastolic heart failure: Code(s): I50.31 - Acute diastolic (congestive) heart failure Status: Acute Assessment and Plan: Patient presents with acute diastolic heart failure, likely due to AFib RVR, rule out underlying cardiomyopathy. resolved, euvolemic. Furosemide discontinued. (3) Pleural effusion: Code(s): J90 - Pleural effusion, not elsewhere classified Status: Acute Assessment and Plan: Patient had a moderate sized isolated right pleural effusion by chest x-rays in June and July, when she was not in heart failure. CT of the chest suggests and malignancy with right hilar mass and lymphadenopathy is well as possible liver lesions Seen by Pulmonary, hoping is supraclavicular node biopsy done today. (4) Essential hypertension: Code(s): I10 - Essential (primary) hypertension Status: Acute Assessment and Plan: Mildly elevated; adjusting medications Subjective Date/time seen: Follow-up for AFib new onset, rapid ventricular response.? New onset of acute diastolic heart failure.? Echo showed EF 55-60% with moderate MR.? She has a chronic right pleural effusion and CT scan this admission showed a right hilar mass and lymphadenopathy, possible hepatic masses. 08/26/22? 14:35? Pt converted to normal sinus rhythm and is breathing better but still has a lot of coughing. daughter Holly and granddaughter at bedside. Reviewed results of CT scan. Cont metoprolol and Lovenox. 08/27/22 10:55 Unfortunately patient went back and AFib RVR this morning. She was given her p.o. metoprolol and a dose of IV metoprolol, then a Cardizem drip at 5 milligrams/hour but heart rate remains 120-130. Patient is asymptomatic. Daughter and granddaughter at the bedside. Still coughing a lot, not getting any sleep. Supraclavicular biopsy on hold due to AFib RVR. Review of Systems Review of Systems: No chest pain, shortness breathing is better, ongoing mostly dry cough, some nausea as she has not had any breakfast, no dizziness been Exam Const: General: cooperative, healthy appearing and comfortable; No confusion Orientation/consciousness: oriented to person, patient oriented x3 and No confusion Other: tired and stressed daughter and granddaughter at bedside HENMT: Mouth: Yes moist mucous membranes Eyes: EOM: EOMs intact bilaterally Neck: Neck: supple Resp: Effort & Inspection: normal respiratory effort Auscultation: diminished lung sounds ( right lower lobe) Cardio: Rate: regular rate and tachycardic Rhythm: regular rhythm and abnormal rhythm irregularly irregular GI: Inspection: normal to inspection GI Palp: No abdominal tenderness Skin: General skin exam: normal color and no rashes or lesions noted Neuro: General: oriented to person, patient oriented x3 and No confusion Extrem: Right lower extremity: no edema Left lower extremity: no edema Psych: Appearance: grossly normal Mental Status: mental status grossly normal Objective Data Vital Signs Vital Signs: Vital Signs - 24 hr 08/26/22 12:00 08/26/22 12:00 08/26/22 13:48 Temperature Pulse Rate 69 72 75 Respiratory Rate 21 H Blood Pressure 150/69 H Pulse Oximetry 93 Oxygen Delivery 08/26/22 13:50 08/26/22 16:00 0
[2022-08-27 12:02] LABS: Glucose Point of Care 157 mg/dl (65-105)
[2022-08-27] MEDS: AMIODARONE 360 MG/D5W 200 ML 360 MG/200 ML BAG 33.33 MG IV CONT (12:39)
[2022-08-27] MEDS: AMIODARONE 150 MG/D5W 100 ML 150 MG/100 ML BAG 600 MG IV CONT (12:39)
--- NOTE | 2022-08-27 13:19 | PM.PNPUL ---
Progress Note: A&P Assessment and Plan (1) Lung mass: Code(s): R91.8 - Other nonspecific abnormal finding of lung field Status: Acute Assessment and Plan: patient with a 14 pack year tobacco use, quit 1991, now with a right upper lobe posterior segment 1 0.8 cm ground-glass opacity, 4.9 cm right hilar mass versus lymph nodes and includes the bronchus intermedius with extensive mediastinal lymphadenopathy and right supraclavicular lymph nodes. There are multiple cysts in the liver. 08/26/22 I reviewed the imaging with Dr. Lopez and will initiate the workup with a ultrasound-guided biopsy of the right supraclavicular lymph node. I discussed the benefits and risks with the patient and she is willing to proceed. I have ordered this test for 08/27/2022 and I discussed her full-dose Lovenox with the radiology department and she can receive her dose on 08/26/2022 at 6:00 p.m. and then will discontinue the Lovenox. Regarding her cough, I will place the patient on benzonatate 200 mg t.i.d. and guaifenesin DM 10 mg p.o. q.6 hours. I see no evidence of emphysematous changes on her CT scan and I am not convinced she has COPD and will discontinue the Anoro Ellipta. 08/27 patient states that her dyspnea on exertion is better she walked to the bathroom and was able to to grooming this morning. No change in her cough. Her room air saturations are 92%. Lovenox was held this morning and patient is scheduled for biopsy of her right supraclavicular lymph node later today. Given that this patient has a high likelihood of cancer I would consult Oncology. Regarding her cough I would continue benzonatate 200 mg t.i.d. and guaifenesin DM 10 mg p.o. q.6 hours on an outpatient basis. Would discontinue her inhalers. Discussed with Dr. De Souza. Will sign off. Call with questions. Subjective Date/time seen: 08/27/22 13:19 Interval history: 08/26/2022:? This is a new pulmonary consult for right lung mass. ? 77-year-old with a history of hypertension. ? In April of 2022 the patient developed sore throat, cough and congestion.? She was seen by her PCP on 07/13 and given steroids and antibiotics and an albuterol inhaler and this provided no benefit.? chest x-ray on 07/16/2022 showed a small right pleural effusion. In ? July of 2022 she was given a 2nd inhaler and had a repeat chest x-ray on 08/12/2022 with a stable right small pleural effusion. ? In August of 2022 patient had persistent symptoms and was given prednisone? with no improvement.? Patient has dyspnea on exertion progressively got worse and she used to walk 2 miles over 45 minutes and she could only walk room to room and she presented to the hospital on 08/25/2022.? Patient was found to be in AFib with RVR. ? Patient had a chest x-ray with right pleural effusion and right lower lung? consolidation and a CT scan of the chest demonstrated a right hilar mass, right supraclavicular lymph nodes and cystic lesions of the liver. ? Throughout all this the patient denied fever, chills, rigors, chest pain.? She tested herself 8 times for [place] it and they were all negative.? She has never had hemoptysis.? She has 5 lb weight loss in the last 3 months. ? Patient smoked tobacco from age [age] at 1 pack per day and from age [age] at 1 pack per day. ? Total pack years 14.? Patient was exposed to secondhand smoke from both of her parents and from her until age 26.? patient denies any vaping, illicit drug use, sandblasting, welding, asbestos were, professional painting or steel tie mill operator.? 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 In the emergency room the patient? was found to be in AFib with RVR and was treated with a Cardizem drip and converted to sinus rhythm.? She was treated with full-dose Lovenox. ? She has converted to sinus rhythm.? 08/26? currently the patient complains of dry cough. ? Room air saturations are 93%.? White blood cell count is 6.3, creatinine was 0
[2022-08-27] MEDS: guaiFENesin/DEXTROMETHORPHAN 10 ML UDC PO ×2 (13:25→17:11)
[2022-08-27] MEDS: BENZONATATE 100 MG CAPSULE 200 MG PO ×2 (13:25→16:32)
[2022-08-27] MEDS: METOPROLOL TARTRATE 12.5 MG TABLET PO ×2 (14:56→21:15)
[2022-08-27] MEDS: AMIODARONE HCL 200 MG TABLET 400 MG PO (16:30)
--- NOTE | 2022-08-27 17:02 | PM.IMPN ---
Progress Note: A&P Assessment and Plan (1) Atrial fibrillation with rapid ventricular response: Code(s): I48.91 - Unspecified atrial fibrillation Status: Acute Assessment and Plan: New onset of acute AFib RVR, uncertain duration. 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 insulin use: without petroleum terminal plant operator use Qualified Code(s): E11.9 - Type 2 diabetes mellitus without complications Code(s): E11.9 - Type 2 diabetes mellitus without complications Status: Acute Assessment and Plan: Check A1c Hypoglycemic protocol Sliding scale insulin Hold metformin (3) Mixed hyperlipidemia: Code(s): E78.2 - Mixed hyperlipidemia Status: Acute Assessment and Plan: Atorvastatin (4) Essential hypertension: Code(s): I10 - Essential (primary) hypertension Status: Acute Assessment and Plan: Stable (5) Gout: Code(s): M10.9 - Gout, unspecified Status: Acute (6) Depression with anxiety: Code(s): F41.8 - Other specified anxiety disorders Status: Acute (7) Acute diastolic heart failure: Code(s): I50.31 - Acute diastolic (congestive) heart failure Status: Acute Assessment and Plan: Patient presents with acute diastolic heart failure, likely due to AFib RVR, rule out underlying cardiomyopathy. This is resolved (8) Pleural effusion: Code(s): J90 - Pleural effusion, not elsewhere classified Status: Acute Assessment and Plan: Right pleural effusion which has been persistent since June CT chest with right hilar mass lymphadenopathy and potential liver lesions Suggested biopsy of the liver lesions Discussed with pulmonary supraclavicular mass biopsy planned today will consult oncology Subjective Date/time seen: 08/27/22 17:02 Interval history: Flipped into AFib with RVR again this morning. Cardiology started on Cardizem drip. Seen earlier today. Going for biopsy of the supraclavicular lymph node. Discussed with the family. Review of Systems Review of Systems: All systems reviewed & are unremarkable except as noted in HPI and below Exam Narrative: GENERAL: The patient is well developed, not in acute distress HEENT: Nonicteric sclerae, PERRLA, EOMI. Oropharynx clear. Moist mucous membranes. Conjunctivae appear well perfused. CHEST: Chest wall is nontender. HEART: Irregularly irregular AFib with RVR on telemetry without murmur, rubs, or gallops LUNGS: Clear to auscultation bilaterally. no respiratory distress ABDOMEN: Soft, positive bowel sounds, non-tender, no organomegaly. SKIN: No rash, no excessive bruising, petechiae, or purpura. NEUROLOGIC: Cranial nerves II-XII intact, alert and oriented x 3, no gross motor deficits EXTREMITIES: no edema, cyanosis or clubbing Objective Data Vital Signs Vital Signs: Vital Signs - 24 hr 08/26/22 17:42 08/26/22 21:44 08/26/22 20:00 Temperature Pulse Rate 76 74 Respiratory Rate Blood Pressure Pulse Oximetry Oxygen Delivery Room Air 08/26/22 20:00 08/26/22 20:00 08/27/22 00:00 Temperature 98.9 F Pulse Rate 74 74 82 Respiratory Rate 23 H Blood Pressure 152/60 H Pulse Oximetry 92 Oxygen Delivery 08/27/22 00:00 08/27/22 04:00 08/27/22 04:00 Temperature 98.3 F Pulse Rate 82 66 66 Respiratory Rate 23 H 17 Blood Pressure 135/66 154/77 H Pulse Oximetry 91 92 Oxygen Delivery 08/27/22 05:58 08/27/22 08:46 08/27/22 08:46 Temperature Pulse Rate 48 L 161 H 143 H Respiratory Rate Blood Pressure Pulse Oximetry Oxygen Delivery 08/27/22 09:45 08/27/22 08:00 08/27/22 08:00 Temperature 98.6 F Pulse Rate 159 H 85 Respiratory Rate 20 Blood Pressure 122/93 H 125/81 Pulse Oximetry 100 Oxygen Deliv
[2022-08-27 17:50] LABS: Glucose Point of Care 155 mg/dl (65-105)
[2022-08-27] MEDS: ATORVASTATIN 20 MG TABLET PO (21:15)
[2022-08-27 21:23] LABS: Glucose Point of Care 115 mg/dl (65-105)
[2022-08-28] VITALS (53 sets, daily range): BP systolic 115–153; BP diastolic 54–70; PULSE 49–74; RESP 10–30; TEMP 36.9–37.6; O2SAT 89–96
[2022-08-28] MEDS: guaiFENesin/DEXTROMETHORPHAN 10 ML UDC PO ×4 (00:49→16:54)
[2022-08-28] MEDS: AMIODARONE HCL 200 MG TABLET 400 MG PO ×3 (00:49→16:53)
[2022-08-28] MEDS: HYDROmorphone HCL INJ (*CRX) 1 MG/ML SYR IV PUSH (01:25)
[2022-08-28] MEDS: traZODone HCL 50 MG TABLET PO (01:25)
[2022-08-28] MEDS: METOPROLOL TARTRATE 12.5 MG TABLET PO (07:03)
[2022-08-28] MEDS: METOPROLOL TARTRATE 25 MG TABLET PO ×2 (07:03→20:50)
[2022-08-28 07:16] LABS: Basophils Percent Auto 0.4 % (0.2-1.2); Eosinophils Absolute Auto 0.1 K/mm3 (0-0.3); Eosinophils Percent Auto 1.2 % (0-4.4); Hematocrit 42.5 % (37.0-47.0); Hemoglobin 14.4 g/dL (12.0-15.0); Immature Granulocyte Absolute 0.06 K/mm3 (0.00-0.031); Immature Granulocyte Percent A 0.6 % (0-0.5); Lymphocytes Absolute Auto 0.94 K/mm3 (0.9-3.2); Lymphocytes Percent Auto 9.8 % (18.3-44.2); Mean Corpuscular HGB Conc 33.9 g/dl (32-36); Mean Corpuscular Hemoglobin 31.9 pg (26-34); Mean Corpuscular Volume 94.2 fl (80-100); Mean Platelet Volume 9.5 fl (7.4-10.4); Monocytes Absolute Auto 0.5 K/mm3 (0.1-0.6); Monocytes Percent Auto 5.3 % (2.6-8.5); Neutrophils Absolute Auto 7.9 K/mm3 (1.3-6.7); Neutrophils Percent Auto 82.7 % (45.5-73.1); Platelet Count Result 206 k/mm3 (150-375); Red Blood Count 4.51 M/mm3 (4.2-5.4); Red Cell Distribution Width 12.4 % (11.5-14.5); White Blood Count 9.6 K/mm3 (4.5-10.0)
[2022-08-28 07:29] LABS: Alanine Aminotransferase 22 U/L (6-35); Albumin Level 4.4 g/dL (3.5-5.1); Alkaline Phosphatase 89 U/L (38-126); Anion Gap 8 mmol/L (8-16); Aspartate Amino Transferase 26 U/L (14-36); Bilirubin,Total 1.2 mg/dL (0.2-1.3); Blood Urea Nitrogen 17 mg/dL (7-17); Calcium 9.2 mg/dL (8.4-10.2); Carbon Dioxide 26 mmol/L (22-30); Chloride 97 mmol/L (98-107); Estimated CRCL calculation 51 ml/min; Estimated Glomerular Filt Rate > 60; Glucose 178 mg/dL (65-110); Magnesium 1.8 mg/dL (1.6-2.3); Sodium 131 mmol/L (137-145)
[2022-08-28 07:47] LABS: Glucose Point of Care 196 mg/dl (65-105)
[2022-08-28] MEDS: BENZONATATE 100 MG CAPSULE 200 MG PO ×2 (08:20→15:07)
[2022-08-28 08:35] LABS: Glucose Point of Care 192 mg/dl (65-105)
--- NOTE | 2022-08-28 09:06 | PM.IMPN ---
Progress Note: A&P Assessment and Plan (1) Atrial fibrillation with rapid ventricular response: Code(s): I48.91 - Unspecified atrial fibrillation Status: Acute Assessment and Plan: New onset of acute AFib RVR, uncertain duration. Started on Cardizem drip now converted to sinus rhythm On metoprolol oral Full-dose Lovenox currently held for biopsy will be switched to NOAC Currently on oral amiodarone and metoprolol Will resume full-dose Lovenox been held for the biopsy today. Change to NOAC close to discharge (2) Type 2 diabetes mellitus without complications: Qualifiers: Diabetes mellitus long chain beamer insulin use: without skilled nursing use Qualified Code(s): E11.9 - Type 2 diabetes mellitus without complications Code(s): E11.9 - Type 2 diabetes mellitus without complications Status: Acute Assessment and Plan: Check A1c Hypoglycemic protocol Sliding scale insulin Hold metformin (3) Mixed hyperlipidemia: Code(s): E78.2 - Mixed hyperlipidemia Status: Acute Assessment and Plan: Atorvastatin (4) Essential hypertension: Code(s): I10 - Essential (primary) hypertension Status: Acute Assessment and Plan: Stable (5) Gout: Code(s): M10.9 - Gout, unspecified Status: Acute (6) Depression with anxiety: Code(s): F41.8 - Other specified anxiety disorders Status: Acute (7) Acute diastolic heart failure: Code(s): I50.31 - Acute diastolic (congestive) heart failure Status: Acute Assessment and Plan: Patient presents with acute diastolic heart failure, likely due to AFib RVR, rule out underlying cardiomyopathy. This is resolved (8) Pleural effusion: Code(s): J90 - Pleural effusion, not elsewhere classified Status: Acute Assessment and Plan: Right pleural effusion which has been persistent since June CT chest with right hilar mass lymphadenopathy and potential liver lesions Suggested biopsy of the liver lesions Discussed with pulmonary supraclavicular mass biopsy 08/27/2022 Oncology consulted await his recommendation Subjective Date/time seen: 08/28/22 09:06 Interval history: Converted to sinus rhythm yesterday afternoon after amiodarone was initiated. She received her supraclavicular lymph gland biopsy yesterday. No other overnight events reported. continues To have some cough. Review of Systems Review of Systems: All systems reviewed & are unremarkable except as noted in HPI and below Exam Narrative: GENERAL: The patient is well developed, not in acute distress HEENT: Nonicteric sclerae, PERRLA, EOMI. Oropharynx clear. Moist mucous membranes. Conjunctivae appear well perfused. CHEST: Chest wall is nontender. HEART: Regular rate and rhythm sinus rhythm on telemetry without murmur, rubs, or gallops LUNGS: Clear to auscultation bilaterally. no respiratory distress ABDOMEN: Soft, positive bowel sounds, non-tender, no organomegaly. SKIN: No rash, no excessive bruising, petechiae, or purpura. NEUROLOGIC: Cranial nerves II-XII intact, alert and oriented x 3, no gross motor deficits EXTREMITIES: no edema, cyanosis or clubbing Objective Data Vital Signs Vital Signs: Vital Signs - 24 hr 08/27/22 09:45 08/27/22 12:39 08/27/22 12:39 Temperature Pulse Rate 159 H 128 H 148 H Respiratory Rate Blood Pressure 122/93 H 110/91 H Pulse Oximetry Oxygen Delivery 08/27/22 12:00 08/27/22 12:00 08/27/22 14:56 Temperature 98.6 F Pulse Rate 132 H 74 Respiratory Rate 26 H Blood Pressure 110/91 H Pulse Oximetry 94 Oxygen Delivery Room Air 08/27/22 14:56 08/27/22 15:51 08/27/22 16:30 Temperature Pulse Rate 74 63 62 Respiratory Rate 24 H Blood Pressure 110/91 H Pulse Oximetry 94 Oxygen Delivery 08/27/22 16:00 08/27/22 12:00 08/27/22 16:00 Temperature Pulse Rate 140 H 59 L Respiratory Rate Blood Pressure Pulse Ox
--- NOTE | 2022-08-28 10:06 | PM.PNCARD ---
Progress Note: A&P Assessment and Plan (1) Atrial fibrillation with rapid ventricular response: Code(s): I48.91 - Unspecified atrial fibrillation Status: Acute Assessment and Plan: New onset of acute AFib RVR, uncertain duration. Had converted to NSR, had more AF RVR yesterday morning, now back in NSR on amiodarone Mildly bradycardic, will decrease metoprolol to 25mg q12h Reviewed risks of long-term side effects of amiodarone, hopefully will not require termite control servicer treatment with amio. Continue full-dose Lovenox for now as the patient may need procedures, later switch do DOAC in the form of Eliquis 5mg b.i.d. Can downgrade to med/tele status today Cardiology will sign off. Please do not hesitate to contact us with any questions. (2) Acute diastolic heart failure: Code(s): I50.31 - Acute diastolic (congestive) heart failure Status: Acute Assessment and Plan: Patient presents with acute diastolic heart failure, likely due to AFib RVR, rule out underlying cardiomyopathy. resolved, euvolemic. Furosemide discontinued. (3) Pleural effusion: Code(s): J90 - Pleural effusion, not elsewhere classified Status: Acute Assessment and Plan: Patient had a moderate sized isolated right pleural effusion by chest x-rays in June and July, when she was not in heart failure. CT of the chest suggests and malignancy with right hilar mass and lymphadenopathy is well as possible liver lesions Seen by Pulmonary, biopsy performed yesterday. (4) Essential hypertension: Code(s): I10 - Essential (primary) hypertension Status: Acute Assessment and Plan: Mildly elevated; adjusting medications Subjective Date/time seen: 08/28/22 10:06 Cardiology follow up for atrial fibrillation Feels well this morning, a little fatigued because she has not slept well in the hospital. She remains in sinus rhythm this morning. No chest pain, shortness of breath. Review of Systems Constitutional: Constitutional: Reports difficulty sleeping (Due to frequent coughing), Reports fatigue, Denies fever(s), Reports lethargy and Reports weakness Eyes: Eyes: Reports no additional eye complaints ENT: Denies epistaxis Cardiovascular: Cardiovascular: Denies chest pain, Denies pedal edema, Denies lightheadedness, Reports palpitations, Reports dyspnea and Reports dyspnea on exertion Respiratory: Respiratory: Reports chest congestion, Reports cough, Reports dyspnea and Reports dyspnea on exertion Gastrointestinal: Gastrointestinal: Denies abdominal pain and Denies hematochezia Genitourinary: Genitourinary: Denies hematuria Musculoskeletal: Musculoskeletal: Reports no additional musculoskeletal complaints Integumentary/Breasts: Skin/Breast: Reports system reviewed and no additional complaints, except as docu Neurologic: Reports system reviewed and no additional complaints, except as documented, Denies behavioral changes, Denies confusion and Reports weakness Psychiatric: Psychiatric: Denies behavioral changes and Denies confusion Endocrine: Endocrine: Reports fatigue and Reports palpitations Exam Const: General: cooperative, healthy appearing and comfortable; No confusion Orientation/consciousness: oriented to person, patient oriented x3 and No confusion HENMT: Mouth: Yes moist mucous membranes Eyes: General: appearance normal, both eyes and all related structures EOM: EOMs intact bilaterally Neck: Neck: supple and no JVD Thyroid: thyroid normal Carotids: no bruits Resp: Effort & Inspection: normal respiratory effort Auscultation: clear to auscultation bilaterally and diminished lung sounds Cardio: Rate: regular rate Rhythm: regular rhythm Heart sounds: no murmurs GI: Inspection: normal to inspection Skin: General skin exam: normal color and no rashes or lesions noted Neuro: General: oriented to person, patient oriented x3 and No confusion Extrem: Right
[2022-08-28] MEDS: ENOXAPARIN 80 MG/0.8 ML SYRINGE SUB-Q ×2 (11:53→20:51)
[2022-08-28 12:00] LABS: Glucose Point of Care 193 mg/dl (65-105)
[2022-08-28 12:16] LABS: Glucose Point of Care 202 mg/dl (65-105)
[2022-08-28] MEDS: CODEINE SULFATE (*CRX) 30 MG TABLET PO (15:07)
--- NOTE | 2022-08-28 15:16 | PC.NURSE ---
Patient complaining of worsening dysphagia and increasing coughing episodes. Patient not able to tolerate solids foods at this point. Dr De Souza notified, circuit designer quinton ordered. Patient also c/o of not being able to sleep at [facility] due to coughing episodes, RENATON gabby ordered to start tonight.
[2022-08-28 16:51] LABS: Glucose Point of Care 164 mg/dl (65-105)
--- NOTE | 2022-08-28 17:12 | PDONCCN ---
HPI - Date of Consult Date/Time: 08/28/22 17:12 Requesting Physician: Donna Lawler MD Primary Care Provider: Sushil Callahan MD - Consult Narrative Reason for consult: Lung mass with metastasis Narrative: Jessica Waldron is a 77 year old female with history of smoking but quit 25 years ago along with history of type 2 diabetes, gout, hypertension and hyperlipidemia has been dealing with shortness of breath for several months duration and now has been having cough with some sore throat for few weeks duration. She has lost 6-7 lb weight. She has no previous history of malignancy. She had mammogram done about a week ago came back normal. Her last colonoscopy was more than 2 years ago and was normal. She denies any diarrhea constipation. Denies any melena hematochezia. CT chest was performed that showed right hilar mass with conglomerate lymph nodes occluding the right bronchus intermedius along with significant mediastinal lymphadenopathy, thoracic inlet lymphadenopathy and small right-sided pleural effusion. There was multiple hypodensities in the liver concerning for metastatic disease. Patient had ultrasound-guided right supraclavicular lymph node biopsy performed yesterday and pathology is pending. Her major complaint today is cough and some shortness of breath. Review of Systems - Review of Systems All systems reviewed & are unremarkable except as noted in HPI and bel - Neurologic Reports system reviewed and no additional complaints, except as documented, Reports hearing normal, Reports weakness, Denies behavioral changes, Denies confusion PMFSH Medical History: Medical History (Last Updated 08/25/22 @ 14:12 by Adenike Phoenix NP) Depression with anxiety Essential hypertension Gout Mixed hyperlipidemia Type 2 diabetes mellitus without complications Surgical History: Surgical History (Last Updated 08/25/22 @ 16:29 by Maria Fernanda Masters MD) H/O: hysterectomy For fibroids Family History: Family History (Last Updated 08/25/22 @ 14:13 by Adenike Phoenix NP) Mother Chronic obstructive pulmonary disease Other Alcoholism - Social History Social History: Social History (Last Updated 08/25/22 @ 16:29 by Maria Fernanda Masters MD) Gender Identity: Gender identity (if verbalized by the patient): Female Sexual Orientation: Sexual Orientation (if Verbalized by the Patient): Straight or Heterosexual Alcohol Use: Alcohol intake: never Substance Use: Substance use: never Living Arrangements: Living arrangements: with family Oppucation/Education: Occupation/Education: retired Smoking Status: Smoking status: Former smoker Tobacco type: cigarettes Second hand tobacco smoke exposure: No Smoking end date: 06/21/01 Smoking Pack-years: Smoking packs per day: 2 Smoking cigarettes per day: 40.0 Years smoked: 15 Smoking pack-years: 30.00 Exam - Vital Signs Vital Signs - 24 hr 08/27/22 18:00 08/27/22 20:00 08/27/22 20:00 Temperature Pulse Rate 63 66 Respiratory Rate Blood Pressure Pulse Oximetry Oxygen Delivery Room Air 08/27/22 21:15 08/27/22 21:15 08/27/22 20:00 Temperature 36.9 C Pulse Rate 64 64 66 Respiratory Rate 15 Blood Pressure 143/79 H Pulse Oximetry 94 Oxygen Delivery 08/28/22 00:49 08/28/22 00:00 08/28/22 00:00 Temperature 36.9 C Pulse Rate 58 L 60 60 Respiratory Rate 20 Blood Pressure 133/66 Pulse Oximetry 92 92 Oxygen Delivery Room Air 08/28/22 00:00 08/28/22 04:00 08/28/22 04:00 Temperature Pulse Rate 52 L 54 L 54 L Respiratory Rate 14 Blood Pressure 115/54 L Pulse Oximetry 92 92 Oxygen Delivery Room Air 08/28/22 04:00 08/28/22 07:03 08/28/22 07:03 Temperature Pulse Rate 54 L 64 64 Respiratory Rate Blood Pressure Pulse Oximetry Oxygen Delivery 08/28/22 08:00 08/28/22 08:21 08/28/22 08:00 Julius
[2022-08-28] MEDS: PANTOPRAZOLE 40 MG TABLET PO (20:48)
[2022-08-28] MEDS: ATORVASTATIN 20 MG TABLET PO (20:50)
[2022-08-28] MEDS: ZOLPIDEM TARTRATE (*CRX) 5 MG TABLET PO (20:53)
[2022-08-28 21:03] LABS: Glucose Point of Care 132 mg/dl (65-105)
[2022-08-29] VITALS: BP 121/92; PULSE 83; RESP 20; O2SAT 93
[2022-08-29] MEDS: guaiFENesin/DEXTROMETHORPHAN 10 ML UDC PO ×2 (00:11→11:42)
[2022-08-29 03:49] LABS: Basophils Percent Auto 0.3 % (0.2-1.2); Eosinophils Absolute Auto 0.1 K/mm3 (0-0.3); Eosinophils Percent Auto 1.1 % (0-4.4); Hematocrit 38.2 % (37.0-47.0); Immature Granulocyte Absolute 0.04 K/mm3 (0.00-0.031); Immature Granulocyte Percent A 0.4 % (0-0.5); Lymphocytes Absolute Auto 0.95 K/mm3 (0.9-3.2); Lymphocytes Percent Auto 10.3 % (18.3-44.2); Mean Corpuscular Hemoglobin 31.9 pg (26-34); Mean Corpuscular Volume 93.6 fl (80-100); Mean Platelet Volume 9.5 fl (7.4-10.4); Monocytes Absolute Auto 0.6 K/mm3 (0.1-0.6); Monocytes Percent Auto 6.4 % (2.6-8.5); Neutrophils Absolute Auto 7.5 K/mm3 (1.3-6.7); Neutrophils Percent Auto 81.5 % (45.5-73.1); Platelet Count Result 171 k/mm3 (150-375); Red Blood Count 4.08 M/mm3 (4.2-5.4); Red Cell Distribution Width 12.2 % (11.5-14.5); White Blood Count 9.2 K/mm3 (4.5-10.0)
[2022-08-29 04:00] VITALS: PULSE 61
[2022-08-29 04:03] LABS: Alanine Aminotransferase 22 U/L (6-35); Alkaline Phosphatase 84 U/L (38-126); Anion Gap 6 mmol/L (8-16); Aspartate Amino Transferase 27 U/L (14-36); Bilirubin,Total 1.5 mg/dL (0.2-1.3); Blood Urea Nitrogen 13 mg/dL (7-17); Calcium 9.1 mg/dL (8.4-10.2); Carbon Dioxide 27 mmol/L (22-30); Chloride 97 mmol/L (98-107); Estimated CRCL calculation 51 ml/min; Estimated Glomerular Filt Rate > 60; Glucose 141 mg/dL (65-110); Magnesium 1.7 mg/dL (1.6-2.3); Potassium 4.2 mmol/L (3.4-5.0); Sodium 130 mmol/L (137-145)
[2022-08-29 07:57] VITALS: O2SAT 92
[2022-08-29 08:00] VITALS: BP 140/73; PULSE 65; PULSE 73; RESP 20; O2SAT 92
[2022-08-29 08:06] LABS: Glucose Point of Care 141 mg/dl (65-105)
[2022-08-29 08:22] VITALS: PULSE 74; PULSE 75
[2022-08-29] MEDS: BENZONATATE 100 MG CAPSULE 200 MG PO ×2 (08:22→13:12)
[2022-08-29] MEDS: PANTOPRAZOLE 40 MG TABLET PO (08:22)
[2022-08-29] MEDS: METOPROLOL TARTRATE 25 MG TABLET PO (08:22)
[2022-08-29] MEDS: AMIODARONE HCL 200 MG TABLET 400 MG PO (08:22)
[2022-08-29] MEDS: ENOXAPARIN 80 MG/0.8 ML SYRINGE SUB-Q (08:23)
[2022-08-29 11:51] LABS: Glucose Point of Care 120 mg/dl (65-105)
[2022-08-29 12:00] VITALS: PULSE 70
--- NOTE | 2022-08-29 13:05 | PCSTNOTE ---
Bedside swallowing evaluation completed. Per patient she experienced sensation of something in her throat beginning in April 2022, at which time she began having shortness of breath. She has since been diagnosed with afib. Today patient reports that she no longer has that sensation since being treated for shortness of breath, pain, and afib during this hospitalization. Patient's swallowing function within normal limits during bedside swallowing evaluation today. No signs of aspiration or other swallowing difficulties. Please note that silent aspiration cannot be ruled out at bedside. Recommendation: Regular diet with thin liquids, follow safety precaution recommendations placed in chart. No speech therapy recommended at this time. Thank you for the referral of this patient.
--- NOTE | 2022-08-29 14:38 | PM.DS ---
DS: Admitting Diagnosis Discharge Date 08/29/2022 Admitting Diagnosis shortness of breath DS: Discharge Diagnosis Discharge Diagnosis (1) Atrial fibrillation with rapid ventricular response: Code(s): I48.91 - Unspecified atrial fibrillation Status: Acute (2) Type 2 diabetes mellitus without complications: Qualifiers: Diabetes mellitus mcc insulin use: without buttermaker helper use Qualified Code(s): E11.9 - Type 2 diabetes mellitus without complications Code(s): E11.9 - Type 2 diabetes mellitus without complications Status: Acute (3) Mixed hyperlipidemia: Code(s): E78.2 - Mixed hyperlipidemia Status: Acute (4) Essential hypertension: Code(s): I10 - Essential (primary) hypertension Status: Acute (5) Gout: Code(s): M10.9 - Gout, unspecified Status: Acute (6) Depression with anxiety: Code(s): F41.8 - Other specified anxiety disorders Status: Acute (7) Acute diastolic heart failure: Code(s): I50.31 - Acute diastolic (congestive) heart failure Status: Acute (8) Pleural effusion: Code(s): J90 - Pleural effusion, not elsewhere classified Status: Acute DS: Summary Hospital Course Hospital Course: # Atrial fibrillation with rapid ventricular response: New onset of acute AFib RVR, uncertain duration.? Started on Cardizem drip now converted to sinus rhythm On metoprolol oral Full-dose Lovenox started Converted back to sinus rhythm however went into AFib with RVR again eventually was started on amiodarone drip. This is been switched to amiodarone oral now she has converted back to sinus rhythm and remains in sinus rhythm by the time of discharge Also on metoprolol which was continued. Lovenox switched to Eliquis at discharge. # type 2 diabetes mellitus without complications: A1c 6.7 Hypoglycemic protocol Sliding scale insulin Hold metformin during the hospital stay resumed at discharge # hyperlipidemia: Atorvastatin # hypertension: Stable Resume amlodipine. Will hold ramipril due to ongoing cough # gout: # depression with anxiety: # acute diastolic heart failure: Patient presents with acute diastolic heart failure, likely due to AFib RVR, rule out underlying cardiomyopathy. This is resolved # pleural effusion: Right pleural effusion which has been persistent since June CT chest with right hilar mass lymphadenopathy and potential liver lesions Suggested biopsy of the liver lesions Discussed with pulmonary supraclavicular mass biopsy 08/27/2022 Oncology consulted And will follow-up as an outpatient basis likely need PET scan Supraclavicular mass biopsy still pending by the time of discharge she will follow-up with oncology as an outpatient basis for ongoing care and diagnosis. Time Spent with Patient Time attestation: Total time spent providing and/or coordinating discharge services: 40 minutes Exam Narrative: GENERAL: The patient is well developed, not in acute distress HEENT: Nonicteric sclerae, PERRLA, EOMI. Oropharynx clear. Moist mucous membranes. Conjunctivae appear well perfused. CHEST: Chest wall is nontender. HEART:? Regular rate and rhythm sinus rhythm on telemetry without murmur, rubs, or gallops LUNGS: Clear to auscultation bilaterally. no respiratory distress ABDOMEN: Soft, positive bowel sounds, non-tender, no organomegaly. SKIN: No rash, no excessive bruising, petechiae, or purpura. NEUROLOGIC: Cranial nerves II-XII intact, alert and oriented x 3, no gross motor deficits EXTREMITIES: no edema, cyanosis or clubbing DS: Data Data Completed and Pending Completed studies during hospitalization: Exam Type: ? ? CA echo doppler color flow Study Info Indications ?? ? - afib Complete two-dimensional, color flow and Doppler transthoracic echocardiogram is performed. Account #: ? ? [id number] Summary ? 1. Complete two-dimensional, color flow and Doppler transthorac
--- NOTE | 2022-08-29 15:50 | PC.NURSE ---
Discharge packet reviewed with patient and patient family member. All questions were answered. Peripheral IV access removed. Pt escorted out with staff via wheelchair.
== END 2022-08-29 15:55 | disposition home or self-care (01) | DRG 987 ==
LOC: ANHED 09:58 → ANHICU 12:19
PROVIDERS: Nurse Practitioner; Admitting Provider Internal Medicine; Emergency Provider Emergency Medicine; PCP Family Medicine; Visit Provider Internal Medicine
DX: C34.01 Malignant neoplasm of right main bronchus (principal); I50.31 Acute diastolic (congestive) heart failure; C77.0 Secondary and unspecified malignant neoplasm of lymph nodes of head, face and neck; J90 Pleural effusion, not elsewhere classified; E78.2 Mixed hyperlipidemia; E11.9 Type 2 diabetes mellitus without complications; F41.8 Other specified anxiety disorders; I48.91 Unspecified atrial fibrillation; I11.0 Hypertensive heart disease with heart failure; K76.89 Other specified diseases of liver; M10.9 Gout, unspecified; Z90.710 Acquired absence of both cervix and uterus; Z87.891 Personal history of nicotine dependence; Z79.84 Long term (current) use of oral hypoglycemic drugs
CPT/HCPCS: 36415; 38505; 71045; 71250; 76942; 80053; 82948; 83036; 83605; 83735; 83880; 84443; 84484; 85025; 85610; 85730; 88305; 88342; 92610; 93005; 93306; 94640; 96365; 96366; 96372; 96375; 96376; 99285; A9270; G0378; J0282; J1170; J1650; J1940

== ENCOUNTER 2022-09-07 22:55 | Emergency (ER) | payer MEDICARE, SELFPAY ==
--- NOTE | ~2022-09-07 | XR_ITS ---
Clinical Indication: Shortness of breath PA and lateral views of the chest: Comparison: 08/25/2022 Findings: Kcodw-hh-ozmvkcec right pleural effusion is unchanged. Left lung remains clear.. Cardiomed iastinal silhouette is stable, with thickening along the right paratracheal stripe. Bones and soft ti ssues are unremarkable. Impression: Stable small to moderate right pleural effusion. Stable thickening along the right paratracheal stripe. Lymphadenopathy is suspected. Reviewed, dictated and finalized at location M. Impression: Stable small to moderate right pleural effusion. Stable thickening along the right paratracheal stripe. Lymphadenopathy is suspe cted.
--- NOTE | 2022-09-07 22:58 | ECG_ITS ---
Measurements Intervals [place] Rate: 60 P: TN: 0 QRS: 32 QRSD: 91 T: 49 QT: 445 QTc: 446 Interpretive Statements SINUS RHYTHM DELAYED PRECORDIAL R/S TRANSITION BORDERLINE ST-T WAVE ABNORMALITY- HIGH LATERAL LEADS BASELINE ARTIFACT- I, II, III, AVR, AVL, AVF, V1-V6 BORDERLINE ECG COMPARED TO ECG 08/25/2022 18:42:48 NO SIGNIFICANT CHANGES Electronically Signed On 09-08-2022 16:29:41 CDT by Heriberto Spain D.O.
[2022-09-07 23:00] VITALS: BP 197/59; PULSE 65; RESP 18; TEMP 37.2; O2SAT 100
[2022-09-07 23:24] LABS: Basophils Percent Auto 0.7 % (0.2-1.2); Eosinophils Absolute Auto 0.3 K/mm3 (0-0.3); Eosinophils Percent Auto 4.8 % (0-4.4); Hematocrit 39.7 % (37.0-47.0); Hemoglobin 13.3 g/dL (12.0-15.0); Immature Granulocyte Absolute 0.04 K/mm3 (0.00-0.031); Immature Granulocyte Percent A 0.7 % (0-0.5); Lymphocytes Absolute Auto 1.06 K/mm3 (0.9-3.2); Lymphocytes Percent Auto 17.6 % (18.3-44.2); Mean Corpuscular HGB Conc 33.5 g/dl (32-36); Mean Corpuscular Hemoglobin 31.5 pg (26-34); Mean Corpuscular Volume 94.1 fl (80-100); Mean Platelet Volume 8.9 fl (7.4-10.4); Monocytes Absolute Auto 0.7 K/mm3 (0.1-0.6); Monocytes Percent Auto 11.4 % (2.6-8.5); Neutrophils Absolute Auto 3.9 K/mm3 (1.3-6.7); Neutrophils Percent Auto 64.8 % (45.5-73.1); Platelet Count Result 237 k/mm3 (150-375); Red Blood Count 4.22 M/mm3 (4.2-5.4); Red Cell Distribution Width 12.3 % (11.5-14.5)
[2022-09-07 23:38] LABS: Alanine Aminotransferase 20 U/L (6-35); Alkaline Phosphatase 108 U/L (38-126); Anion Gap 6 mmol/L (8-16); Aspartate Amino Transferase 25 U/L (14-36); Bilirubin,Total 0.8 mg/dL (0.2-1.3); Blood Urea Nitrogen 10 mg/dL (7-17); Calcium 8.8 mg/dL (8.4-10.2); Carbon Dioxide 26 mmol/L (22-30); Chloride 100 mmol/L (98-107); Estimated CRCL calculation 50 ml/min; Estimated Glomerular Filt Rate > 60; Glucose 130 mg/dL (65-110); Potassium 4.3 mmol/L (3.4-5.0); Sodium 132 mmol/L (137-145)
[2022-09-07 23:50] LABS: NT Pro B Type Natriuretic Pept 586 pg/mL (19.9-100); Troponin I < 0.012 ng/mL (0.000-0.034)
[2022-09-08 00:04] VITALS: O2SAT 96
[2022-09-08 01:25] VITALS: BP 176/72; PULSE 59; RESP 18; O2SAT 96
--- NOTE | 2022-09-08 01:26 | PC.NURSE ---
Pt left before being seen, she has a pet scan in the AM and will speak with her doctor then. Education provided to come back if things get worse.
== END 2022-09-08 01:26 | disposition left against medical advice (07) ==
LOC: ANHED 09-08 01:31
PROVIDERS: Emergency Provider Emergency Medicine; PCP Family Medicine
DX: R06.02 Shortness of breath (principal)
CPT/HCPCS: 36415; 71046; 80053; 83880; 84484; 85025; 93005; 99199

== ENCOUNTER 2022-09-10 10:45 | Outpatient (CLI) | payer MEDICARE, SELFPAY ==
--- NOTE | ~2022-09-10 | PE_ITS ---
EXAMINATION: PET skull to mid thigh DATE: 09/10/2022 12:48 INDICATION: Malignant neoplasm of the right lung, metastatic small cell carcinoma detected on right s upraclavicular lymph node biopsy. TECHNIQUE: Blood glucose level was 114 mg/dL. 9.742 mCi of 18-fluorodeoxyglucose (18-FDG) was adminis tered i.v. Low dose computed tomography (CT) images were acquired from the base of the brain to the p roximal thighs for attenuation correction and anatomic localization. Positron emission tomography (PE T) images were acquired in the same distribution beginning 56 minutes after injection. The dose-lengt h product (DLP) was 493.83 mGy-cm. COMPARISON: 08/25/2022 FINDINGS: Head/neck: There are matted, pathologically enlarged bilateral supraclavicular lymph nodes and upper paratracheal lymph nodes with abnormal FDG uptake. For instance, a right supraclavicular lymph node m ass measures up to approximately 6.2 cm in longest axial dimension. There are nonpathologically enlar ged bilateral jugular chain lymph nodes, measuring up to 7 mm on the left, with abnormal FDG uptake. Chest: There is a large right perihilar mass infiltrating into, and involving much of the, the right lower lobe, with abnormal FDG uptake. The unaffected right lower lobe is collapsed due to mass effect on the right lower lobe bronchi. The mass extends into the subcarinal lymph nodes. There are matted right paratracheal and prevascular lymph nodes with abnormal FDG uptake. There is aorticopulmonary wi ndow and left hilar lymphadenopathy associated abnormal FDG uptake. There are tqped-aj-hehlwbck size right pleural effusion the heart size is normal. There is no pneumothorax. Abdomen/pelvis/proximal thighs: Physiologic FDG activity is present in the bowel and urinary tract. N o abnormal FDG uptake is identified. There is a 6.5 cm cyst of the liver. No pathologically enlarged abdominal or pelvic lymph nodes are identified. No free intraperitoneal gas or evidence of bowel obst ruction. There is calcified atherosclerosis of the aorta and many of the other arteries. Musculoskeletal: No abnormal FDG uptake is identified. IMPRESSION: 1. Large right perihilar mass infiltrating into the right lower lobe and subcarinal lymph nodes with mediastinal and supraclavicular lymphadenopathy and neck lymph nodes with abnormal FDG uptake. Findin gs are consistent with metastatic small cell carcinoma. Reviewed, dictated and finalized at location L. IMPRESSION: 1. Large right perihilar mass infiltrating into the right lower lobe and subcar inal lymph nodes with mediastinal and supraclavicular lymphadenopathy and neck lymph nodes with abnormal FDG uptake. Findings are consistent with metastatic s mall cell carcinoma.
[2022-09-10 11:07] LABS: Glucose Point of Care 114 mg/dl (65-105)
== END 2022-09-10 10:46 | disposition home or self-care (01) ==
PROVIDERS: PCP Family Medicine; Visit Provider Internal Medicine Hematology & Oncology
DX: C34.01 Malignant neoplasm of right main bronchus (principal); R59.1 Generalized enlarged lymph nodes
CPT/HCPCS: 78815; A9552

== ENCOUNTER 2022-09-22 23:42 | Observation (INO) | payer MEDICARE, SELFPAY ==
--- NOTE | ~2022-09-22 | MR_ITS ---
EXAMINATION: MR brain/brain stem wo/w con DATE: 09/23/2022 07:25 INDICATION: Malignant neoplasm of right lung. TECHNIQUE: Magnetic resonance imaging (MRI) of the brain and brainstem was performed without and with 18 mL MultiHance intravenous contrast. COMPARISON: None. FINDINGS: There are scattered areas of nonspecific increased T2-weighted signal intensity in the cere bral white matter, which is within normal limits for the patient's age. There is no intracranial hemo rrhage, acute infarction, or abnormal intracranial mass lesion. The ventricles are normal in size. Th e orbits are normal. There is mucosal thickening in the paranasal sinuses. There are small bilateral mastoid effusions. IMPRESSION: 1. Normal aging brain. No evidence of metastatic disease. Reviewed, dictated and finalized at location A.
[2022-09-22 23:27] VITALS: BMI 34.2
[2022-09-22 23:28] VITALS: BP 147/83; PULSE 74; RESP 16; TEMP 36.1; O2SAT 94
--- NOTE | 2022-09-22 23:33 | PM.IMHP ---
H&P: HPI History of Present Illness Date/Time: 09/22/22 23:33 Chief Complaint: Hyponatremia Narrative: This is a 77-year-old female with past medical history significant for recently diagnosed small cell lung cancer with metastatic disease patient comes as a transfer from [facility] due to hyponatremia. Patient has shortness of breath and generalized weakness however states that she is okay with ambulation, has a persistent dry cough, no fevers, no rigors, no chills, no nausea, no vomiting, no abdominal pain, no leg swelling, no hemoptysis. Preliminary workup was significant for sodium of 128. Patient is been placed in observation for further evaluation management and treatment. Review of Systems Review of Systems: Generalized weakness, low sodium, dry persistent cough. Constitutional: Constitutional: Denies chills, Reports fatigue, Denies fever(s), Reports lethargy, Denies malaise, Denies night sweats, Reports poor appetite and Reports weakness Eyes: Eyes: Denies change in vision ENT: Denies dysphagia and Denies odynophagia Cardiovascular: Cardiovascular: Denies chest pain and Denies leg edema Respiratory: Respiratory: Reports cough and Reports dyspnea Gastrointestinal: Gastrointestinal: Denies abdominal pain, Denies dyspepsia, Denies heartburn, Denies diarrhea, Denies nausea and Denies vomiting Genitourinary: Genitourinary: Denies dysuria Musculoskeletal: Musculoskeletal: Denies back pain and Denies myalgias Integumentary/Breasts: Skin/Breast: Denies rash Neurologic: Denies focal weakness and Denies Sensory deficit (Neuro) Psychiatric: Psychiatric: Reports no additional psychiatric complaints and Reports as per HPI Endocrine: Endocrine: Denies cold intolerance, Denies flushing, Denies heat intolerance, Denies polyphagia, Denies polydipsia and Denies palpitations Hematologic/Lymphatic: Hematologic/Lymphatic: Reports no additional hematologic/lymphatic complaints and Reports as per HPI Allergic/Immunologic: Allergic/Immunologic: Reports no additional allergic/immunologic complaints and Reports as per HPI PMFSH Past Medical History Medical History (Updated 09/23/22 @ 00:43 by Aury Franco MD) Depression with anxiety Essential hypertension Gout Mixed hyperlipidemia Type 2 diabetes mellitus without complications Surgical History Surgical History (Updated 08/28/22 @ 17:17 by Rogelio Hadley MD) H/O: hysterectomy For fibroids Family History Family History (Updated 08/25/22 @ 14:13 by Adenike Phoenix NP) Mother Chronic obstructive pulmonary disease Other Alcoholism Social History Social History (Updated 08/25/22 @ 16:29 by Maria Fernanda Masters MD) Social History: 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 She is . She quit smoking many years ago. Code status full code Smoking packs per day: 2 Smoking cigarettes per day: 40.0 Years smoked: 15 Smoking pack-years: 30.00 Smoking status: Former smoker Tobacco type: cigarettes Second hand tobacco smoke exposure: No Smoking end date: 06/21/01 Alcohol intake: never Substance use: never Substance use type: does not use Lack of Transportation: No Lack of Food: Never True Current Housing: I Have Housing Concerned About Future Housing: No Difficulty Paying Gas/Electric Bills: No Difficulty Paying for Meds: No Currently Unemployed: No Education: Bachelor's Degree Difficulty w/ Childcare or Family Care: No Living arrangements: with family Occupation/Education: retired Gender identity (if verbalized by the patient): Female Sexual Orientation (if Verbalized by the Patient): Straight or Heterosexual Spiritual care concerns: No Meds Home Medications and Allergies Home Medications Medication Instructions Recorded Confirmed Type metformin 500 mg tablet,extended 1,000 mg PO DAILY #180 tabs 12/29/21 08/25/22 Rx re
[2022-09-23 01:03] LABS: Basophils Absolute Auto 0.1 K/mm3 (0.0-0.1); Basophils Percent Auto 0.7 % (0.2-1.2); Eosinophils Absolute Auto 0.1 K/mm3 (0-0.3); Eosinophils Percent Auto 0.9 % (0-4.4); Hematocrit 35.1 % (37.0-47.0); Hemoglobin 12.1 g/dL (12.0-15.0); Immature Granulocyte Absolute 0.07 K/mm3 (0.00-0.031); Immature Granulocyte Percent A 0.9 % (0-0.5); Lymphocytes Absolute Auto 0.67 K/mm3 (0.9-3.2); Lymphocytes Percent Auto 8.8 % (18.3-44.2); Mean Corpuscular HGB Conc 34.5 g/dl (32-36); Mean Corpuscular Hemoglobin 32.1 pg (26-34); Mean Corpuscular Volume 93.1 fl (80-100); Mean Platelet Volume 9.3 fl (7.4-10.4); Monocytes Absolute Auto 0.6 K/mm3 (0.1-0.6); Monocytes Percent Auto 8.1 % (2.6-8.5); Neutrophils Absolute Auto 6.1 K/mm3 (1.3-6.7); Neutrophils Percent Auto 80.6 % (45.5-73.1); Platelet Count Result 253 k/mm3 (150-375); Red Blood Count 3.77 M/mm3 (4.2-5.4); Red Cell Distribution Width 12.8 % (11.5-14.5); White Blood Count 7.6 K/mm3 (4.5-10.0)
[2022-09-23 01:12] LABS: Magnesium 1.9 mg/dL (1.6-2.3); Phosphorus 3.8 mg/dL (2.5-4.5)
[2022-09-23] MEDS: BENZONATATE 100 MG CAPSULE 200 MG PO ×2 (01:27→22:49)
[2022-09-23 05:39] LABS: Appearance Urine Clear (Clear); Bacteria Urine 4+ /hpf; Bilirubin Urine Negative (Negative); Blood Urine Negative (Negative); Color Urine Yellow (Yellow); Glucose Urine UA Negative (Negative); Ketones Urine Negative (Negative); Leukocyte Esterase Ur 1+ LEU/UL (NEGATIVE); Nitrate Urine Positive (Negative); Non Pathogenic Casts 0-2; Protein Urine Negative (Negative); RBC Urine 0-2 /hpf (0-2); Squamous Epithelial Cell Urine None seen /hpf (Few); WBC Urine 21-50 /hpf (0-3)
[2022-09-23 05:45] VITALS: BP 159/78; PULSE 85; RESP 16; TEMP 36.4; O2SAT 96
[2022-09-23 06:00] LABS: Specific Grav Ur 1.058 (1.001-1.035)
[2022-09-23 06:01] LABS: Add Urine Microscopic? YES
[2022-09-23] MEDS: LORazepam (*CRX) 1 MG TABLET 2 MG PO (06:35)
[2022-09-23 08:06] LABS: Glucose Point of Care 126 mg/dl (65-105)
[2022-09-23 08:28] LABS: Anion Gap 4 mmol/L (8-16); Blood Urea Nitrogen 13 mg/dL (7-17); Calcium 8.9 mg/dL (8.4-10.2); Carbon Dioxide 29 mmol/L (22-30); Chloride 94 mmol/L (98-107); Estimated CRCL calculation 55 ml/min; Estimated Glomerular Filt Rate > 60; Glucose 117 mg/dL (65-110); Potassium 4.3 mmol/L (3.4-5.0); Sodium 127 mmol/L (137-145)
--- NOTE | 2022-09-23 09:00 | ECG_ITS ---
Measurements Intervals [place] Rate: 77 P: -28 UT: 165 QRS: 43 QRSD: 96 T: 54 QT: 407 QTc: 462 Interpretive Statements SINUS RHYTHM LOW VOLTAGE ABNORMAL ECG COMPARED TO ECG 09/07/2022 23:07:56 NO SIGNIFICANT CHANGES Electronically Signed On 09-23-2022 13:50:29 CDT by Deuce Lopez M.D.
[2022-09-23] MEDS: ENOXAPARIN 40 MG/0.4 ML SYRINGE SUB-Q (09:37)
[2022-09-23 09:38] VITALS: PULSE 76
[2022-09-23] MEDS: APIXABAN 5 MG TABLET PO ×2 (09:38→20:54)
[2022-09-23] MEDS: AMIODARONE HCL 200 MG TABLET 400 MG PO (09:38)
[2022-09-23 09:39] VITALS: PULSE 76
[2022-09-23] MEDS: METOPROLOL TARTRATE 25 MG TABLET PO ×2 (09:39→20:54)
[2022-09-23] MEDS: PANTOPRAZOLE 40 MG TABLET PO (09:39)
[2022-09-23 11:19] LABS: Glucose Point of Care 136 mg/dl (65-105)
[2022-09-23] MEDS: SODIUM CHLORIDE 1 GM TABLET PO ×2 (12:03→16:17)
[2022-09-23 12:30] LABS: Sodium 127 mmol/L (137-145)
[2022-09-23 13:04] VITALS: BMI 34.2
[2022-09-23 14:00] VITALS: BP 148/73; PULSE 79; RESP 17; TEMP 37.2; O2SAT 94
--- NOTE | 2022-09-23 14:41 | PM.IMPN ---
Progress Note: A&P Assessment and Plan (1) Hyponatremia: Code(s): E87.1 - Hypo-osmolality and hyponatremia Status: Acute Assessment and Plan: Sodium 126 on arrival to outside facility. Likely secondary to small cell lung cancer. Sodium 127 today, remaining stable. Continue with fluid restriction. Resume sodium chloride tabs 1000 mg t.i.d.. Trend sodium levels. Monitor q.6 hours (2) SIADH (syndrome of inappropriate ADH production): Code(s): E22.2 - Syndrome of inappropriate secretion of antidiuretic hormone Status: Acute Assessment and Plan: As above (3) SCC of lung (small cell carcinoma): Code(s): C34.90 - Malignant neoplasm of unspecified part of unspecified bronchus or lung Status: Acute Assessment and Plan: Patient is established with Oncology. Continue with outpatient follow-up (4) Type 2 diabetes mellitus without complications: Qualifiers: Diabetes mellitus terminal operator insulin use: without alf use Qualified Code(s): E11.9 - Type 2 diabetes mellitus without complications Code(s): E11.9 - Type 2 diabetes mellitus without complications Status: Acute Assessment and Plan: A1c is 6.7. Continue Accu-Cheks, sliding scale insulin, hypoglycemic protocol. Home metformin on hold (5) Essential hypertension: Code(s): I10 - Essential (primary) hypertension Status: Acute Assessment and Plan: Blood pressure is stable. Continue home metoprolol. Monitor BP trends (6) Atrial fibrillation: Code(s): I48.91 - Unspecified atrial fibrillation Status: Acute Assessment and Plan: Rate is controlled. Continue Eliquis and metoprolol Subjective Date/time seen: 09/23/22 14:41 Interval history: Date of service: 09/23/2022 Jessica Waldron is a 77 year old female with a history of hypertension, anxiety, depression, hyperlipidemia, type 2 diabetes mellitus, and recently diagnosed small cell lung cancer with metastatic disease. She complains of back pain today. She endorses nausea but no vomiting. She is not tolerating solids. She is able to tolerate liquids. She denies chest pain or palpitations. Endorses occasional dizziness and lightheadedness. No urinary symptoms. Review of Systems Review of Systems: All systems reviewed & are unremarkable except as noted in HPI and below Exam Narrative: General: Thin, well-appearing [id number], sitting up in bed, comfortable, NARD Neuro: awake, alert and oriented x4, speech clear HEENMT: normocephalic, atraumatic, EOMI, sclerae anicteric Respiratory: clear to auscultation bilaterally, nonlabored breathing Cardio: regular rate, regular rhythm with S1-S2 Abdomen: nondistended, normoactive bowel sounds, soft, nontender to palpation Extremities: no edema, erythema, or tenderness to palpation Skin: no rashes or lesions, warm and dry Psych: appropriate mood and affect, judgment and insight intact Objective Data Vital Signs Vital Signs: Vital Signs - 24 hr 09/22/22 23:28 09/23/22 05:45 09/22/22 23:00 Temperature 97 F L 97.5 F L Pulse Rate 74 85 Respiratory Rate 16 16 Blood Pressure 147/83 H 159/78 H Pulse Oximetry 94 96 Oxygen Delivery Room Air 09/23/22 09:38 09/23/22 09:39 09/23/22 14:00 Temperature 98.9 F Pulse Rate 76 76 79 Respiratory Rate 17 Blood Pressure 148/73 H Pulse Oximetry 94 Oxygen Delivery Intake/Output Intake/Output: Intake & Output 09/20/22 09/21/22 09/22/22 09/23/22 23:59 23:59 23:59 23:59 Output Total 200 Balance -200 Meds/Results Medications: Active Medications Generic Name Dose Route Start Last Admin Trade Name Freq PRN Reason Stop Dose Admin Acetaminophen 650 mg 09/22/22 23:42 Acetaminophen 325 Mg Tablet PO Q4H PRN Mild Pain (1-3) or Fever Al Hydrox/Mg Hydrox/Simethicone 30 ml 09/22/22 23:42 Mag Hydrox/Al Hydrox/Simeth 30 Ml
[2022-09-23 16:34] LABS: Glucose Point of Care 129 mg/dl (65-105)
[2022-09-23 18:25] LABS: Sodium 129 mmol/L (137-145)
[2022-09-23 20:00] VITALS: PULSE 79; RESP 17; O2SAT 94
[2022-09-23] MEDS: ATORVASTATIN 20 MG TABLET PO (20:54)
[2022-09-23 21:24] LABS: Glucose Point of Care 180 mg/dl (65-105)
[2022-09-23 21:42] VITALS: BP 154/45; PULSE 81; RESP 16; TEMP 36.3; O2SAT 95
[2022-09-23] MEDS: ZOLPIDEM TARTRATE (*CRX) 5 MG TABLET BY MOUTH (22:50)
[2022-09-24 01:04] LABS: Sodium 128 mmol/L (137-145)
[2022-09-24 05:17] VITALS: BP 150/92; PULSE 88; RESP 18; TEMP 36.4; O2SAT 96
[2022-09-24 06:16] LABS: Hematocrit 35.7 % (37.0-47.0); Hemoglobin 11.9 g/dL (12.0-15.0); Mean Corpuscular HGB Conc 33.3 g/dl (32-36); Mean Corpuscular Hemoglobin 31.2 pg (26-34); Mean Corpuscular Volume 93.7 fl (80-100); Mean Platelet Volume 9.1 fl (7.4-10.4); Platelet Count Result 234 k/mm3 (150-375); Red Blood Count 3.81 M/mm3 (4.2-5.4); Red Cell Distribution Width 12.9 % (11.5-14.5); White Blood Count 6.5 K/mm3 (4.5-10.0)
[2022-09-24 06:32] LABS: Anion Gap 7 mmol/L (8-16); Blood Urea Nitrogen 13 mg/dL (7-17); Carbon Dioxide 26 mmol/L (22-30); Chloride 96 mmol/L (98-107); Estimated CRCL calculation 62 ml/min; Estimated Glomerular Filt Rate > 60; Glucose 116 mg/dL (65-110); Potassium 4.3 mmol/L (3.4-5.0); Sodium 129 mmol/L (137-145)
[2022-09-24 07:49] LABS: Glucose Point of Care 126 mg/dl (65-105)
[2022-09-24 08:59] VITALS: PULSE 88
[2022-09-24] MEDS: APIXABAN 5 MG TABLET PO (08:59)
[2022-09-24] MEDS: AMIODARONE HCL 200 MG TABLET 400 MG PO (08:59)
[2022-09-24 09:01] VITALS: PULSE 88
[2022-09-24] MEDS: METOPROLOL TARTRATE 25 MG TABLET PO (09:01)
[2022-09-24] MEDS: SODIUM CHLORIDE 1 GM TABLET PO ×2 (09:01→11:59)
[2022-09-24] MEDS: PANTOPRAZOLE 40 MG TABLET PO (09:01)
[2022-09-24] MEDS: ACETAMINOPHEN 325 MG TABLET 650 MG PO (09:08)
[2022-09-24] MEDS: BENZONATATE 100 MG CAPSULE 200 MG PO (09:15)
--- NOTE | 2022-09-24 11:44 | PM.DS ---
DS: Admitting Diagnosis Discharge Date 09/24/2022 Admitting Diagnosis hyponatremia DS: Discharge Diagnosis Discharge Diagnosis (1) Hyponatremia: Code(s): E87.1 - Hypo-osmolality and hyponatremia Status: Acute Assessment and Plan: Sodium 126 on arrival to outside facility. Likely secondary to small cell lung cancer. patient recently hospitalized at outside facility 1 week prior, also for hyponatremia. Sodium improved at appropriate rate during admission with 1500 mL fluid restriction diet and continuing patient's home salt tablets 1 g t.i.d.. Sodium improved to 129. Suspect this to be baseline. repeat sodium levels on Wednesday with results to PCP, instructed to follow-up sooner if patient develops symptoms. continue fluid restriction diet. (2) SIADH (syndrome of inappropriate ADH production): Code(s): E22.2 - Syndrome of inappropriate secretion of antidiuretic hormone Status: Acute Assessment and Plan: As above (3) SCC of lung (small cell carcinoma): Code(s): C34.90 - Malignant neoplasm of unspecified part of unspecified bronchus or lung Status: Acute Assessment and Plan: Patient is established with Oncology. Continue with outpatient follow-up. Scheduled for port placement in 1 week to begin chemotherapy (4) Type 2 diabetes mellitus without complications: Qualifiers: Diabetes mellitus detention insulin use: without detention use Qualified Code(s): E11.9 - Type 2 diabetes mellitus without complications Code(s): E11.9 - Type 2 diabetes mellitus without complications Status: Acute Assessment and Plan: A1c is 6.7. blood sugars controlled during admission. Continue home metformin (5) Essential hypertension: Code(s): I10 - Essential (primary) hypertension Status: Acute Assessment and Plan: Blood pressure remained stable. Continue home metoprolol. (6) Atrial fibrillation: Code(s): I48.91 - Unspecified atrial fibrillation Status: Acute Assessment and Plan: Rate controlled. Continue Eliquis and metoprolol DS: Summary Hospital Course Hospital Course: date of admission: 09/22/2022 date of discharge: 09/24/2022 Jessica Waldron is a 77 year old female with a history of hypertension, anxiety, depression, hyperlipidemia, type 2 diabetes mellitus, and recently diagnosed small cell lung cancer with metastatic who was transferred to [facility] due to hypernatremia. Sodium 126 on presentation to outside hospital. Arrival to this facility, her vital signs were stable she was afebrile sodium was 127, additional CBC and BMP unremarkable. she was admitted to hospitalist service for further evaluation and management. Please see above for further details. Brain MRI completed during admission due to metastatic lung cancer. Patient had this ordered as an outpatient for 09/23 therefore this was completed inpatient which revealed normal aging brain with no evidence of metastatic disease. Sodium levels improved and remains stable. One hundred twenty-nine at time of discharge. Patient will continue fluid restriction diet and salt tabs. Recheck sodium on Wednesday in follow-up with PCP. Continue to follow-up with Oncology. Discussed with the patient and her daughter worrisome signs and symptoms for which to return and she was educated on her medications. Patient felt comfortable plans for discharge home. She was discharged in hemodynamically stable condition on 09/24/2022. Time Spent with Patient Time attestation: Total time spent providing and/or coordinating discharge services: 45 minute Time spent: Greater than 30 minutes Exam Narrative: General: Thin, well-appearing 77-year-old female, sitting up in bed, comfortable, NARD Neuro: awake, alert and oriented x4, speech clear HEENMT: normocephalic, atraumatic, EOMI, sclerae anicteric Respiratory: clear to auscultation bilat
[2022-09-24 11:47] LABS: Glucose Point of Care 192 mg/dl (65-105)
== END 2022-09-24 13:00 | disposition home health service (06) ==
PROVIDERS: Admitting Provider Internal Medicine; PCP Family Medicine; Visit Provider Physician Assistant
DX: E22.2 Syndrome of inappropriate secretion of antidiuretic hormone (principal); C34.90 Malignant neoplasm of unspecified part of unspecified bronchus or lung; E11.9 Type 2 diabetes mellitus without complications; I10 Essential (primary) hypertension; I48.91 Unspecified atrial fibrillation; F41.8 Other specified anxiety disorders; M10.9 Gout, unspecified; E78.2 Mixed hyperlipidemia; R94.31 Abnormal electrocardiogram [ECG] [EKG]; M54.9 Dorsalgia, unspecified; Z87.891 Personal history of nicotine dependence; Z79.84 Long term (current) use of oral hypoglycemic drugs; Z79.51 Long term (current) use of inhaled steroids; Z79.01 Long term (current) use of anticoagulants; Z79.899 Other long term (current) drug therapy
CPT/HCPCS: 36415; 70553; 80048; 81001; 82948; 83735; 84100; 84295; 85025; 85027; 93005; 96372; A9270; A9577; G0378; J1650

== ENCOUNTER 2022-10-02 00:47 | Day surgery (SDC) | payer MEDICARE, SELFPAY ==
[2022-09-24 14:33] VITALS: BMI 27.5
--- NOTE | 2022-09-24 14:38 | PC.NURSE ---
Report to the Outpatient Waiting Room, entrance under the green pavilion located off [facility], at time _0900_ on date _10/02/22_. Planned Procedure Time: _1100_. Time changes happen often and if your time is changed the preop area will call you the afternoon before. - You and your visitor will be asked to self-screen and do not enter if you have any COVID symptoms. - Only one visitor is requested with a max of two and NO children visitors are allowed at this time. - The patient visitor may be requested to leave or wait in car when not with patient due to distancing restrictions. - A mask is optional within the hospital at this time. Patients may have clear liquids (water, carbonated beverages, clear teas, apple juice) until 3 hours prior to surgery with a maximum of 20 ounces. - No food from midnight until time of surgery - Infants may have breast milk until 4 hours before surgery, formula 6 hours prior to surgery. - Children will be allowed to drink immediately following surgery. If applicable, please bring a bottle or sippy cup to assist with drinking. Juice, water, soda, and popsicles are readily available. For infants on formula, please bring formula the day of surgery. Pacifiers are allowed. Take the following medications with a SIP of water the morning of surgery:_AMIODARONE, METOPROLOL, MUCINEX_ DO NOT STOP ANY OF YOUR OTHER PRESCRIPTION MEDICATIONS PRIOR TO SURGERY ?EXCEPT THE FOLLOWING Medications to discontinue per DR. VILLASEÑOR - _ELIQUIS 3 DAYS PRIOR TO SURGERY, Date to take last dose 09/28/22_ Please no make-up, nail kyrgyz, hairspray, perfume, deodorant, or body powder the day of surgery. No jewelry (including any body piercings) or valuables the day of surgery, leave them at home. Please take a shower or bath the night before, or the morning of, surgery with an antibacterial soap. Wear comfortable, loose fitting clothing. Children are encouraged to wear pajamas. - Jewelry must be removed prior to entering the operating room. Rings and piercings that are not removed may be cut off. - The hospital will not accept responsibility for valuables. - Please leave all valuables, including medications, at home the day of surgery. If you are going home after surgery, a licensed chain saw driver must drive you home. - NO public transportation without another adult if you receive anesthesia. - We recommend that an adult stay with you for 24 hours following discharge. - We also recommend that you do not drive, make important decision, drink alcoholic beverages, or take any drugs that were not prescribed by your health care provider for at least 24 hours after your discharge time. For Pediatric surgeries, we recommend two adults accompany the child home. Follow any additional instructions given to you from your surgeon. If you or anyone in your household have experienced Covid symptoms in the past week, please notify your surgeon or the nurse liaison at the phone number below for possible testing. Telephone instructions given to _PATIENT'S DAUGHTER - RADHA_and asked if any additional questions and then verbalized understanding. Patient advised to call surgeon office or pre surgery nurse liaison [phone] if any additional questions.
--- NOTE | ~2022-10-02 | XR_ITS ---
EXAMINATION: XR fl guide central line place DATE: 10/02/2022 13:36 INDICATION: Port placement. TECHNIQUE: 3 intraoperative fluoroscopic views of the chest were obtained. I was not present. Fluoros copy exposure time was 12 seconds. COMPARISON: Chest 2 views 09/07/2022 FINDINGS: There is a right subclavian central venous catheter with tip in superior vena cava. There i s a moderate-sized right pleural effusion. IMPRESSION: 1. Catheter tip in superior vena cava. 2. Moderate-sized right pleural effusion again seen. Reviewed, dictated and finalized at location A.
--- NOTE | ~2022-10-02 | XR_ITS ---
XR chest port-a-cath/central 10/02/2022 14:05 Indication: Insertion of portacatheter Procedure: AP portable chest Comparison: 09/07/2022 Findings: Right subclavian kenia catheter tip in the SVC. Moderate right pleural effusion. Right basi lar consolidation, atelectasis versus pneumonia. No pneumothorax. Left lung clear. Impression: 1: Moderate right pleural effusion. 2: Right basilar airspace consolidation which may represent atelectasis or pneumonia. Reviewed, dictated and finalized at location B. Impression: 1: Moderate right pleural effusion. 2: Right basilar airspace consolidation which may represent atelectasis or pne umonia.
[2022-10-02 09:20] VITALS: BP 164/73; PULSE 75; RESP 20; TEMP 37.1; O2SAT 95
[2022-10-02 10:16] LABS: Sodium 123 mmol/L (137-145)
[2022-10-02] MEDS: SODIUM CHLORIDE 0.9% IV 500 ML 30 ML IV CONT (10:16)
--- NOTE | 2022-10-02 10:25 | WPDANESEPPF ---
Anes - Initial Pre Proc Eval Procedure: Operation Date: 10/02/22 11:00 Proposed Procedures p Insertion Devyn Cath - Carlos Man MD Date/Time: 10/02/22 10:25 Surgeon: Carlos Man MD Pre Op Diagnosis: small cell lung ca Patient Data Age: 77 Gender: F Height: 1.65 m Weight: 79 kg Last Vital Signs Temp 37.1 C 10/02/22 09:20 Pulse 75 10/02/22 09:20 Resp 20 10/02/22 09:20 BP 164/73 H 10/02/22 09:20 Pulse Ox 95 10/02/22 09:20 O2 Del Method Room Air 10/02/22 09:20 Allergies Allergy/AdvReac Type Severity Reaction Status Date / Time loratadine Allergy Unknown Hives Verified 10/02/22 09:10 Home Medications Medication Instructions Recorded Confirmed Type atorvastatin 20 mg tablet (Lipitor) 20 mg PO QHS #90 tabs 12/30/21 09/28/22 Rx amiodarone 400 mg tablet 400 mg PO DAILY #30 tabs 08/28/22 10/02/22 Rx apixaban 5 mg tablet (Eliquis) 5 mg PO BID #60 tabs 08/29/22 10/02/22 Rx metoprolol tartrate 25 mg tablet 25 mg PO Q12HR #60 tabs 08/29/22 10/02/22 Rx pantoprazole 40 mg tablet,delayed 40 mg PO DAILY #60 tabs 08/29/22 09/28/22 Rx release sodium chloride 1,000 mg soluble 1,000 mg PO TID 09/23/22 09/28/22 History tablet cholecalciferol (vitamin D3) 50 50 mcg PO DAILY 09/24/22 09/28/22 History mcg (2,000 unit) tablet fluticasone propionate 50 2 spray intranasal DAILY 09/24/22 09/28/22 History mcg/actuation nasal spray,suspension guaifenesin 600 mg tablet, 600 mg PO BID 09/24/22 09/28/22 History extended release 12 hr (Mucinex) prochlorperazine maleate 10 mg 10 mg Q6H PRN Nausea 09/24/22 09/28/22 History tablet metformin 500 mg tablet,extended 1,000 mg PO DAILY #180 tabs 09/25/22 10/02/22 Rx release 24 hr magnesium 250 mg tablet 500 mg PO HS 09/28/22 10/02/22 History melatonin 3 mg capsule 3 mg PO HS 09/28/22 10/02/22 History albuterol sulfate 90 mcg/actuation 1 inh inhalation Q4H PRN shortness 10/01/22 10/02/22 Rx aerosol inhaler of breath or wheezing #6.7 grams benzonatate 100 mg capsule 200 mg PO TID PRN Cough #60 caps 10/02/22 Rx sertraline 25 mg tablet 25 mg PO DAILY #30 tabs 10/02/22 Rx suvorexant 10 mg tablet (Belsomra) 10 mg PO QHS #30 tabs 10/02/22 Rx Laboratory Tests 10/02/22 09:58 Sodium 123 mmol/L L mmol/L (137-145) Patient hx anesthesia problems: none Family hx anesthesia problems: none Results Review: All pre-operative results and documents have been reviewed as part of the pre-operative evaluation. 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 She is . She quit smoking many years ago. Code status full code Smoking packs per day: 2 Smoking cigarettes per day: 40.0 Years smoked: 20 Smoking pack-years: 40.00 Smoking status: Former smoker Tobacco type: cigarettes Second hand tobacco smoke exposure: No Smoking end date: 06/21/01 Alcohol intake: never Substance use: never Substance use type: does not use Lack of Transportation: No Lack of Food: Never True Current Housing: I Have Housing Concerned About Future Housing: No Difficulty Paying Gas/Electric Bills: No Difficulty Paying for Meds: No Currently Unemployed: No Education: Bachelor's Degree Difficulty w/ Childcare or Family Ca
[2022-10-02] MEDS: KETOROLAC 15 MG/ML VIAL (*BKC) IV PUSH (10:27)
--- NOTE | 2022-10-02 11:58 | PM.IMHP ---
H&P: HPI History of Present Illness Date/Time: 10/02/22 11:58 Chief Complaint: Small cell lung CA , right lung Narrative: Pt presents for placement of a portacatheter for administration of chemotherapy for right small cell lung CA. Pt takes Eliquis for A-fib but stopped it 3 days ago. Never had a prior port placement or central line. Review of Systems Review of Systems: The remainder of the review of systems to include constitutional, HEENT, cardiovascular, respiratory, GI, , integumentary, musculoskeletal, endocrine, immunologic, hematologic, psychiatric, and neurologic are all negative except for which is mentioned above in the HPI. 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 She is . She quit smoking many years ago. Code status full code Smoking packs per day: 2 Smoking cigarettes per day: 40.0 Years smoked: 20 Smoking pack-years: 40.00 Smoking status: Former smoker Tobacco type: cigarettes Second hand tobacco smoke exposure: No Smoking end date: 06/21/01 Alcohol intake: never Substance use: never Substance use type: does not use Lack of Transportation: No Lack of Food: Never True Current Housing: I Have Housing Concerned About Future Housing: No Difficulty Paying Gas/Electric Bills: No Difficulty Paying for Meds: No Currently Unemployed: No Education: Bachelor's Degree Difficulty w/ Childcare or Family Care: No Living arrangements: alone Additional living arrangements comments: DAUGHTERS X3 LIVE WITHIN 1/2 MILE OF PT'S HOME Occupation/Education: retired Gender identity (if verbalized by the patient): Female Sexual Orientation (if Verbalized by the Patient): Straight or Heterosexual Spiritual care concerns: No Meds Home Medications and Allergies Home Medications Medication Instructions Recorded Confirmed Type atorvastatin 20 mg tablet (Lipitor) 20 mg PO QHS #90 tabs 12/30/21 09/28/22 Rx amiodarone 400 mg tablet 400 mg PO DAILY #30 tabs 08/28/22 10/02/22 Rx apixaban 5 mg tablet (Eliquis) 5 mg PO BID #60 tabs 08/29/22 10/02/22 Rx metoprolol tartrate 25 mg tablet 25 mg PO Q12HR #60 tabs 08/29/22 10/02/22 Rx pantoprazole 40 mg tablet,delayed 40 mg PO DAILY #60 tabs 08/29/22 09/28/22 Rx release sodium chloride 1,000 mg soluble 1,000 mg PO TID 09/23/22 09/28/22 History tablet cholecalciferol (vitamin D3) 50 50 mcg PO DAILY 09/24/22 09/28/22 History mcg (2,000 unit) tablet fluticasone propionate 50 2 spray intranasal DAILY 09/24/22 09/28/22 History mcg/actuation nasal spray,suspension guaifenesin 600 mg tablet, 600 mg PO BID 09/24/22 09/28/22 History extended release 12 hr (Mucinex) prochlorperazine maleate 10 mg 10 mg Q6H PRN Nausea 09/24/22 09/28/22 History tablet metformin 500 mg tablet,extended 1,000 mg PO DAILY #180 tabs 09/25/22 10/02/22 Rx release 24 hr magnesium 250 mg tablet 500 mg PO HS 09/28/22 10/02/22 History melatonin 3 mg capsule 3 mg PO HS 09/28/22 10/02/22 History albuterol sulfate 90 mcg/actuation 1 inh inhalation Q4H PRN shortness 10/01/22 10/02/22 Rx aerosol inhaler of breath or wheezing #6.7 grams benzonatate 100 mg capsule 200 mg PO TID PRN Cough #60 caps 10/02/22 Rx sertraline 25 mg tablet
--- NOTE | 2022-10-02 12:09 | WPDHPUPDATE1 ---
History and Physical Update Update Date/Time: 10/02/22 12:09 History and Physical has been reviewed, including an updated exam of the patient. There are NO changes in the patient's condition. Risks, benefits, and alternatives have been discussed and questions answered. Patient agrees to proceed with procedure.
[2022-10-02 12:36] LABS: Glucose Point of Care 119 mg/dl (65-105)
[2022-10-02] MEDS: ceFAZolin 2 GM/D5W 50 ML 2 GM/50 ML BAG IVPB (12:39)
[2022-10-02] MEDS: LIDO 1%/EPINEPHRINE 1:100,000 50 ML VIAL 15 ML INFILTRATE (13:07)
[2022-10-02] MEDS: HEPARIN SODIUM 5,000 UNITS/ML VIAL 5000 UNITS IRRIGATION (13:08)
[2022-10-02] MEDS: HEPARIN SODIUM 1,000 UNITS/ML VIAL 1000 UNITS IV PUSH (13:10)
[2022-10-02 13:56] VITALS: BP 131/84; PULSE 73; RESP 22; TEMP 36.4; O2SAT 97
[2022-10-02 14:10] VITALS: BP 117/59; PULSE 74; RESP 12; O2SAT 97
[2022-10-02 14:12] LABS: Glucose Point of Care 162 mg/dl (65-105)
[2022-10-02 14:25] VITALS: BP 116/57; PULSE 75; RESP 22; O2SAT 96
--- NOTE | 2022-10-02 14:26 | W.PM.PROC2 ---
Procedure Note - Detailed Date of Procedure 10/02/22 Pre-op Diagnosis small cell lung ca Post-op Diagnosis Same Procedure Performed Placement of right subclavian vein single-lumen port a catheter with intraoperative fluoroscopy Surgeon Carlos Man MD Anesthesia MAC Indications Patient is a 77-year-old female who unfortunately has small cell lung cancer of the right lung. She is to undergo chemotherapy treatments and presents now for placement of a Port-A-Cath to facilitate chemotherapy treatments. Findings None Description of Procedure After informed consent was obtained the patient was brought to the operating room she is placed in supine position and then IV sedation was administered by anesthesia. The bilateral anterior neck and chest was then prepped and draped in usual sterile fashion. A time-out was then performed correctly identifying the patient as well as the procedure to be performed verifying that she was given perioperative IV antibiotics. I then proceeded to approach placement of the single-lumen port a catheter into the right subclavian vein. 1% lidocaine mixed with 0.5% Marcaine without epinephrine was injected around the just below the medial 3rd of the right clavicle. I then used a long 18gauge spinal needle and cannulated the right subclavian vein on the 1st pass that I would difficulty. There was dark blood return and so I passed the guidewire through the needle into the right subclavian vein and subsequently down into the superior vena cava. Intraoperative fluoroscopy was used to verify the proper placement of the tip of the guidewire. I then anesthetized the the port pocket on the right anterior chest utilizing same local anesthetic mixture. I then made a transverse incision in this area just below the medial 3rd of the right clavicle to include the insertion site of the guidewire through the skin. Dissection carried down through the subcutaneous tissues and then I created the subcutaneous port pocket with electrocautery and blunt finger dissection above the pectoralis major muscle. I then advanced a dilator and breakaway sheath over the guidewire. The guidewire and dilator were removed leaving the sheath in place. A 9.6 Canadian single-lumen catheter was advanced through the sheath into the right subclavian vein subsequently down into the right atrium of the heart via the superior vena cava. Utilize intro fluoroscopy I then pulled back on the catheter into the tip was in the distal superior vena cava. I then cut the catheter to the appropriate length the skin level and attached it to the Smart Port. The port was then secured in the subcutaneous port pocket utilizing 3-0 Prolene sutures in 3 separate areas. I then accessed the port utilizing Mishra needle and it aspirated blood easily and was flushed with heparinized saline solution. I then placed some hemogram topical hemostatic agent into the subcutaneous port pocket the patient seen to have some generalized oozing of blood from the tissues. She had a history of being on Eliquis which was stopped 3 days ago. I then proceeded to close incision Radha interrupted 3-0 Vicryl sutures in the subcutaneous tissues. The skin edges were then closed utilizing a running subcuticular 4 Monocryl suture. The port was then accessed percutaneously 1 last time and again it idxon back blood easily and was flushed with heparinized saline solution skin glue was applied to the incision. The patient tolerated the procedure well no complications. All sponges, needles, and instrument counts were correct at the end procedure. EBL was _30__cc. The patient was awakened and taken to recovery in stable and satisfactory condition. Implants 9.6 Canadian single-lumen catheter attached to Smart Port Estimated Blood Loss 30 Drains No Packing No Pathology None sent Complications No immediate complications Condition Stable Disposition PACU [facility] Billing Surgery - Charge Forward: Surgery Billing
[2022-10-02 14:35] VITALS: BP 132/63; PULSE 77; RESP 20; O2SAT 92
[2022-10-02 15:05] VITALS: BP 132/64; PULSE 74; RESP 16; O2SAT 94
== END 2022-10-02 15:25 | disposition home or self-care (01) ==
PROVIDERS: Anesthesiology; PCP Family Medicine; Visit Provider Surgery
PROC: (CPT 36561; principal; 2022-10-02 11:00)
DX: C34.91 Malignant neoplasm of unspecified part of right bronchus or lung (principal); I10 Essential (primary) hypertension; E78.2 Mixed hyperlipidemia; E11.9 Type 2 diabetes mellitus without complications; I48.91 Unspecified atrial fibrillation; F41.8 Other specified anxiety disorders; M10.9 Gout, unspecified; Z87.891 Personal history of nicotine dependence; Z79.01 Long term (current) use of anticoagulants; Z79.84 Long term (current) use of oral hypoglycemic drugs; Z79.51 Long term (current) use of inhaled steroids
CPT/HCPCS: 36561; 36415; 77001; 82948; 84295; C1788; J0360; J0690; J1644; J1885; J2250; J2704; J2765; J3010; J7030; J7040

== ENCOUNTER 2023-01-11 08:55 | Outpatient (CLI) | payer MEDICARE, SELFPAY ==
--- NOTE | ~2023-01-11 | CT_ITS ---
Clinical Indication: Lung cancer CT Scan of the Chest, Abdomen, and Pelvis with Contrast: Technique: Contiguous sections were acquired throughout the chest, abdomen, and pelvis after intraven ous administration of 100 cc of Omnipaque 350. Dose reduction technique was used on this scan by uti lizing automated exposure control and iterative reconstruction technique. The dose-length product (DL P) was 498.99 mGy-cm. COMPARISON: 08/25/2022 Findings: Previously noted extensive mediastinal and right paratracheal lymphadenopathy is nearly completely re solved. Previously noted right perihilar mass is essentially completely resolved. There is mild resid ual soft tissue thickening in the right hilum and mediastinum involving the right paratracheal region and subcarinal region, extending to the right hilum. Minimal right pleural effusion is present. No left pleural effusion. No pericardial effusion. Atheros clerotic calcifications of the aorta and coronary arteries are present. There is a stable semisolid, somewhat bubbly lesion in the right upper lobe measuring 2.[address] (axial image 34). There is probable minimal scarring or atelectasis in the right lower lobe. Multiple hepatic cysts are present. There is a vague, amorphous hypodense noncystic lesion at the inf erior right hepatic lobe measuring 1 cm in diameter (axial image 162), nonspecific. The spleen, pancr eas, gallbladder, adrenals and kidneys are within normal limits. No evidence of aortic aneurysm. No lymphadenopathy. No bowel obstruction or bowel wall thickening. There is no evidence to suggest acute appendicitis. Urinary bladder is unremarkable. No pelvic mass seen. No ascites. Impression: Marked, near complete interval response to therapy. Right perihilar mass and right hilar/mediastinal lymphadenopathy is all nearly completely resolved, with minimal residual soft tissue thickening in th e mediastinum, as detailed above. Stable 2.2 cm semisolid lesion in the right upper lobe. 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 Vague amorphous 1 cm hypodense noncystic lesion at the inferior right hepatic lobe. This is indetermi amalia. Metastasis cannot be completely excluded given history, however remainder of lesions demonstrat e marked response to therapy. Consider pre and postcontrast MR to further assess this finding. Minimal right pleural effusion. Reviewed, dictated and finalized at location M. Impression: Marked, near complete interval response to therapy. Right perihilar mass and ri ght hilar/mediastinal lymphadenopathy is all nearly completely resolved, with m inimal residual soft tissue thickening in the mediastinum, as detailed above. Stable 2.2 cm semisolid lesion in the right upper lobe. Low-grade/indolent bron choalveolar cell cell carcinoma is a consideration versus possible chronic infe ction or postinflammatory change. Vague amorphous 1 cm hypodense noncystic lesion at the inferior right hepatic l obe. This is indeterminate. Metastasis cannot be completely excluded given hist ory, however remainder of lesions demonstrate marked response to therapy. Consi domonique pre and postcontrast MR to further assess this finding. Minimal right pleural effusion.
== END 2023-01-11 08:56 | disposition home or self-care (01) ==
PROVIDERS: PCP Family Medicine; Visit Provider Internal Medicine Hematology & Oncology
DX: C34.90 Malignant neoplasm of unspecified part of unspecified bronchus or lung (principal); J90 Pleural effusion, not elsewhere classified
CPT/HCPCS: 36415; 71260; 74177; 80053; 85025; Q9967

== ENCOUNTER 2023-03-18 07:55 | Outpatient (CLI) | payer MEDICARE, SELFPAY ==
--- NOTE | 2023-03-18 12:34 | WPDSIXMINUTE ---
Six Minute Walk Procedure Procedure Performed Pulmonary Stress Test (6 min walk) Six Minute Walk Six Minute Walk: This is a 6 minute walk test. The test was performed and interpreted in accordance with the 2014 ERS/ATS task force guidelines. Findings: The patient's resting room air oxygen saturation measured by pulse oximetry was 96% and heart rate was 68 bpm. Patient ambulated for 312 meters and oxygen saturation remained 93 to 95%. Heart rate at the end of the study was 118 bpm. The patient did not qualify for supplemental oxygen at rest or with ambulation. There are no prior studies for comparison.
== END 2023-03-18 07:56 | disposition home or self-care (01) ==
PROVIDERS: PCP Family Medicine; Visit Provider Internal Medicine Hematology & Oncology
DX: C34.90 Malignant neoplasm of unspecified part of unspecified bronchus or lung (principal)
CPT/HCPCS: 94618

== ENCOUNTER 2023-04-19 09:45 | Outpatient (CLI) | payer MEDICARE, SELFPAY ==
--- NOTE | ~2023-04-19 | CT_ITS ---
EXAMINATION: CT chest abdomen pelvis w con DATE: 04/19/2023 10:25 INDICATION: Small cell lung cancer. TECHNIQUE: Computed tomography (CT) of the chest, abdomen, and pelvis was performed with 100 mL Omnip aque 350 intravenous contrast. Automated exposure control and iterative reconstruction technique were employed. The dose-length product was 428.16 mGy-cm. COMPARISON: CT 01/11/2023, PET CT 09/10/2022 FINDINGS: CHEST CT: There is worsened bulky mediastinal and right hilar lymphadenopathy with mass effect on the right-karlie ed bronchi. There is collapse of right lung lower lobe with hypoenhancement of the perihilar right lo wer lobe. There is mild emphysema. There are airspace and groundglass opacities in right middle lobe. There is a stable 2.4 cm part-solid nodule in right upper lobe. There is a small groundglass opacity in left upper lobe. There are a few scattered nodules in the lungs measuring up to 5 mm. There is a moderate-sized right pleural effusion. There is bilateral supraclavicular lymphadenopathy. For exampl e, a 2.8 x 1.8 cm is new from 01/11/2023. The heart size is normal. There are coronary artery calcific ations. No pericardial effusion. Aortic atherosclerosis is noted. The central line tip is at superior cavoatrial junction. Mediastinal lymphadenopathy demonstrates mass effect on the superior vena cava. ABDOMEN/PELVIS CT: There are cysts in the liver measuring up to 6.6 cm. The gallbladder, spleen, pancreas, and adrenal g lands are normal. There is cortical thinning of the kidneys. There are cysts in the kidneys measuring up to 8 mm on the left. There are no dilated loops of bowel. The appendix is normal. There is calcif ied atherosclerosis of the aorta and many of the other arteries. There are no pathologically enlarged lymph nodes. There is no free intraperitoneal fluid. There are many small scattered sclerotic lesion s of bone. IMPRESSION: 1. Worsened chest lymphadenopathy, consistent with metastatic disease. 2. Collapse of right lung lower lobe with hypoenhancement in the perihilar right lower lobe, which ma y be malignancy or pneumonia. 3. Worsened moderate-sized right pleural effusion. 4. Bone lesions, new from 09/10/22, consistent with metastatic disease. 5. Stable 2.4 cm part solid nodule in right lung upper lobe suspicious for primary bronchogenic carci noma. Reviewed, dictated and finalized at location E. IMPRESSION: 1. Worsened chest lymphadenopathy, consistent with metastatic disease. 2. Collapse of right lung lower lobe with hypoenhancement in the perihilar righ t lower lobe, which may be malignancy or pneumonia. 3. Worsened moderate-sized right pleural effusion. 4. Bone lesions, new from 09/10/22, consistent with metastatic disease. 5. Stable 2.4 cm part solid nodule in right lung upper lobe suspicious for prim adeel bronchogenic carcinoma.
== END 2023-04-19 09:46 | disposition home or self-care (01) ==
PROVIDERS: PCP Family Medicine; Visit Provider Internal Medicine Hematology & Oncology
DX: C34.90 Malignant neoplasm of unspecified part of unspecified bronchus or lung (principal); J90 Pleural effusion, not elsewhere classified
CPT/HCPCS: 71260; 74177; Q9967

== ENCOUNTER 2023-04-23 12:36 | Outpatient (CLI) | payer MEDICARE, SELFPAY ==
--- NOTE | ~2023-04-23 | CT_ITS ---
EXAMINATION: CT brain wo/w con DATE: 04/23/2023 13:26 INDICATION: Small cell lung cancer TECHNIQUE: Computed tomography (CT) of the head was performed without and with 100 mL Omnipaque-350 i ntravenous contrast. Sagittal and coronal reconstructions were performed. The mA was adjusted accordi ng to patient size. Iterative reconstruction technique was employed. The dose-length product was 1210 .67 mGy-cm. COMPARISON: Brain MR dated 09/23/2022 FINDINGS: No acute intracranial hemorrhage, acute infarction or abnormal extra axial fluid collection. Ventricl es are normal and symmetric. No mass/mass effect. No abnormally enhancing brain lesions. Atherosclero tic plaque without hemodynamic significant stenosis at the right vertebral and bilateral carotid siph ons. The orbits, paranasal sinuses and mastoid air cells are normal. IMPRESSION: 1. No acute intracranial process or abnormally enhancing brain lesions. Reviewed, dictated and finalized at location A.
== END 2023-04-23 12:37 | disposition home or self-care (01) ==
PROVIDERS: PCP Family Medicine; Referring Provider Internal Medicine Hematology & Oncology; Visit Provider Radiology Diagnostic Radiology
DX: C34.90 Malignant neoplasm of unspecified part of unspecified bronchus or lung (principal); J90 Pleural effusion, not elsewhere classified
CPT/HCPCS: 36415; 70470; 80047; 80053; 85025; Q9967

== ENCOUNTER 2023-04-26 05:14 | Outpatient (CLI) | payer MEDICARE, SELFPAY ==
--- NOTE | 2023-04-23 13:29 | PC.NURSE ---
Pre Radiology instructions Report to the outpatient rip mendoza on date04/26/23 at time _0930 for procedure Time: 1130____ YOU MAY BE MONITORED AT HOSPITAL FOR UP TO 4 HOURS AFTER YOUR PROCEDURE. A visitor will be allowed to accompany the patient into the hospital. You and your visitor will be asked to self-screen and do not enter if you have any COVID symptoms. A mask is OPTIONAL within the hospital. Patients are to have no food or drink 6 hours prior to procedure time Driving will be restricted after the procedure, you must have a person to drive you home. Labs will be drawn in preop area and once reviewed, you will be taken to radiology area for procedure. When the procedure is completed, you will be taken to outpatient where you will be monitored for several hours. You may have one visitor in this area. Other than holding anti-coagulants, patient may take other medication(s) as scheduled. Prior to your appointment date patients are instructed to hold anti-coagulants after discussing with ordering provider to stop. If unable to discontinue anti-coagulants please notify radiologist. ? No aspirin or warfarin (Coumadin) for 7 days prior to the procedure. ? No clopidogrel (Plavix), ticagrelor (Brilinta), prasugrel (Effient) or dabigatran (Pradaxa) for 5 days prior to the procedure. ? No rivaroxaban (Xarelto), apixaban (Eliquis), dipyridamole (Aggrenox or Persantine) or cilostazol (Pletal) for 2 days prior to the procedure. Medications to discontinue per physician: __ELIQUIS 2 DAYS PRE PROCEDURE. LAST DOSE 04/23/23 Please leave all valuables, including medications, at home the day of procedure. The hospital will not accept responsibility for valuables. Wear comfortable, loose fitting clothing.? Follow any additional instructions given to you from ordering provider. Telephone instructions given to __PT'S DAUGHTER RADHA and asked if any additional questions and then verbalized understanding. Patient advised to call scheduling provider office or registration scheduling [phone] if any additional questions.
[2023-04-23 13:34] VITALS: BMI 26.0
[2023-04-26] VITALS (9 sets, daily range): BP systolic 141–173; BP diastolic 65–93; PULSE 63–80; RESP 15–18; TEMP 36.4; O2SAT 92–95
--- NOTE | ~2023-04-26 | US_ITS ---
EXAMINATION: US thoracentesis DATE: 04/26/2023 12:18 INDICATION: Small cell lung cancer with right pleural effusion TECHNIQUE: The procedure and its risks and benefits were discussed with the patient. Potential risks discussed included bleeding, infection, and pneumothorax. The patient understood the risks and agreed to proceed. The skin was prepped and draped in sterile fashion. 1% lidocaine was used for local anes thesia. Under ultrasound guidance, a 5 Fr catheter with trochar was advanced into the right pleural e ffusion. Fluid was aspirated. The catheter was removed, and a dressing was applied. There were no imm ediate complications. FINDINGS: Ultrasound images demonstrate a moderate sized right pleural effusion and the catheter within the flu id. IMPRESSION: 1. Successful ultrasound-guided thoracentesis yielding 1000 mL of cloudy yellow fluid. Reviewed, dictated and finalized at location A. IAL EDUCATION TEACHER IMPRESSION: 1. Successful ultrasound-guided thoracentesis yielding 1000 mL of cloudy yello w fluid.
--- NOTE | ~2023-04-26 | XR_ITS ---
EXAMINATION: [id number] DATE: 04/26/2023 11:53 INDICATION: Status post thoracentesis TECHNIQUE: frontal view of the chest was obtained. COMPARISON: Chest radiograph dated 10/02/2022 FINDINGS: Decrease in size of a small right pleural effusion with associated atelectasis in the right lower sukhi g zone. Associated underlying pneumonia or malignancy not excludable. Left lung remains clear. No pne umothorax, pulmonary edema or left-sided pleural effusion. Heart size is normal. Left ventricular pac emaker device. Right subclavian central venous port catheter with distal tip at the midsuperior vena cava. IMPRESSION: 1. Residual small right pleural effusion with no pneumothorax post right thoracentesis. 2. Associated atelectasis in the right lower lung although underlying pneumonia or malignancy is not excludable. Reviewed, dictated and finalized at location A. CATCHER IMPRESSION: 1. Residual small right pleural effusion with no pneumothorax post right thorac entesis. 2. Associated atelectasis in the right lower lung although underlying pneumonia or malignancy is not excludable.
[2023-04-26 10:15] LABS: Prothrombin Time 13.6 Seconds (11.1-14.7)
== END 2023-04-26 14:00 | disposition home or self-care (01) ==
PROVIDERS: PCP Family Medicine; Visit Provider Radiology Diagnostic Radiology
DX: Z01.818 Encounter for other preprocedural examination (principal); J91.8 Pleural effusion in other conditions classified elsewhere
CPT/HCPCS: 32555; 36415; 85610; 87205; 88108; 88305; C1729

== ENCOUNTER 2023-07-23 08:28 | Outpatient (CLI) | payer MEDICARE, SELFPAY ==
--- NOTE | ~2023-07-23 | CT_ITS ---
Clinical Indication: Lung cancer CT Scan of the Chest with Contrast: Technique: Contiguous sections were acquired throughout the chest after intravenous administration of 75 cc of Omnipaque 350. Dose reduction technique was used on this scan by utilizing automated exposu re control and iterative reconstruction technique. The dose-length product (DLP) was 150.05 mGy-cm. COMPARISON: 04/19/2023 Findings: Mediastinal lymphadenopathy significantly decreased from prior exam, compatible partial response to t herapy. There is no filling defect in the pulmonary arterial tree to suggest pulmonary embolus. There is no evidence of aortic dissection or aneurysm. No pericardial effusion. Moderate right pleural effusion present. No left pleural effusion.. Irregular nodular opacity in the right upper lobe appears slightly more prominent/confluent is compar ed to prior exams (axial image 32). There is probable atelectatic change in the right lower lobe maikel cent to the major fissure. Images through the upper abdomen reveal hepatic cysts and intrahepatic biliary dilatation. Degree of intrahepatic biliary dilatation appears to mildly progressed from prior exam... Impression: Irregular right upper lobe pulmonary nodule appears slightly more prominent/confluent as compared to prior exams. Moderate right pleural effusion. Mediastinal lymphadenopathy appears decreased from prior exam, compatible partial response to therapy . Suspected worsening intrahepatic biliary dilatation, partially imaged. Consider additional workup as indicated. Reviewed, dictated and finalized at location M. D TEST ENGINEER Impression: Irregular right upper lobe pulmonary nodule appears slightly more prominent/con fluent as compared to prior exams. Moderate right pleural effusion. Mediastinal lymphadenopathy appears decreased from prior exam, compatible parti al response to therapy. Suspected worsening intrahepatic biliary dilatation, partially imaged. Consider additional workup as indicated.
== END 2023-07-23 08:29 | disposition home or self-care (01) ==
PROVIDERS: PCP Family Medicine; Visit Provider Internal Medicine Hematology & Oncology
DX: C34.90 Malignant neoplasm of unspecified part of unspecified bronchus or lung (principal); J90 Pleural effusion, not elsewhere classified; R59.0 Localized enlarged lymph nodes; K83.9 Disease of biliary tract, unspecified
CPT/HCPCS: 71260; Q9967

== ENCOUNTER 2023-08-23 09:38 | Emergency (ER) | payer MEDICARE, SELFPAY ==
[2023-08-23] VITALS (28 sets, daily range): BP systolic 112–156; BP diastolic 59–80; PULSE 79–98; RESP 17–24; TEMP 36.4–36.9; O2SAT 96–100
--- NOTE | 2023-08-23 10:10 | ECG_ITS ---
Measurements Intervals [place] Rate: 96 P: 99 [place]: 176 QRS: 57 QRSD: 95 T: 64 QT: 381 QTc: 483 Interpretive Statements SINUS RHYTHM DELAYED PRECORDIAL R/S TRANSITION BASELINE ARTIFACT- I, II, AVR BORDERLINE ECG COMPARED TO ECG 09/23/2022 09:34:51 NO SIGNIFICANT CHANGES Electronically Signed On 08-23-2023 10:17:19 MOTOR BUILDER [employer]SEMBLER by Heriberto Spain D.O.
[2023-08-23 10:35] LABS: Hematocrit 39.9 % (37.0-47.0); Hemoglobin 12.7 g/dL (12.0-15.0); Mean Corpuscular HGB Conc 31.8 g/dl (32-36); Mean Corpuscular Hemoglobin 31.7 pg (26-34); Mean Corpuscular Volume 99.5 fl (80-100); Mean Platelet Volume 10.2 fl (7.4-10.4); Platelet Count Result 143 k/mm3 (150-375); Red Blood Count 4.01 M/mm3 (4.2-5.4); Red Cell Distribution Width 13.3 % (11.5-14.5); White Blood Count 9.3 K/mm3 (4.5-10.0)
[2023-08-23 10:49] LABS: Alanine Aminotransferase 12 U/L (6-35); Albumin Level 3.7 g/dL (3.5-5.1); Alkaline Phosphatase 76 U/L (38-126); Anion Gap 11 mmol/L (8-16); Aspartate Amino Transferase 17 U/L (14-36); Bilirubin,Total 0.6 mg/dL (0.2-1.3); Blood Urea Nitrogen 34 mg/dL (7-17); Calcium 9.1 mg/dL (8.4-10.2); Carbon Dioxide 15 mmol/L (22-30); Chloride 106 mmol/L (98-107); Estimated CRCL calculation 36 ml/min; Estimated Glomerular Filt Rate 54; Glucose 130 mg/dL (65-110); Potassium 3.8 mmol/L (3.4-5.0); Sodium 132 mmol/L (137-145)
[2023-08-23 11:01] LABS: Band Neutrophils Percent 14 % (0-6); Lymphocytes Absolute Manual 0.74 K/mm3 (1.1-4.5); Lymphocytes Percent Manual 8 % (18-44); Neutrophils Absolute Manual 7.62 K/mm3 (1.7-7.2); Neutrophils Percent Manual 68 % (46-73); Total Cells Counted 100
[2023-08-23 11:02] LABS: Anisocytosis 1+ (NORMAL); Monocytes Absolute Manual 0.93 K/mm3 (0.1-0.90); Monocytes Percent Manual 10 % (3-9); Platelet Estimate Adequate (Adequate); Schistocytes None Seen (NORMAL)
[2023-08-23] MEDS: SODIUM CHLORIDE 0.9% IV 1,000 ML 999 ML IV CONT (11:03)
--- NOTE | 2023-08-23 12:42 | ED.WEAKNESS ---
HPI - Weakness General Chief complaint: Weakness Stated complaint: dehydration Time Seen by Provider: 08/23/23 10:32 History of Present Illness HPI Narrative: Patient is a 75-year-old female who presents ER with weakness. Reports she has had diarrhea for the last 4 days. It is between 2 and 6 loose stools each day. No blood. No fevers or chills or sweats. She has history of Lung cancer, recently started Keytruda. She also reports prior to diarrhea she is constipated took a laxative. She has not been taking any additional 1 since she started having bowel movements. Reports today she feels quite fatigued. No dizziness or loss of consciousness. Related Data Home Medications Medication Instructions Recorded Confirmed cholecalciferol (vitamin D3) 50 50 mcg PO DAILY 09/24/22 08/11/23 mcg (2,000 unit) tablet fluticasone propionate 50 2 spray intranasal DAILY 09/24/22 08/11/23 mcg/actuation nasal spray,suspension guaifenesin 600 mg tablet, 600 mg PO BID 09/24/22 08/11/23 extended release 12 hr (Mucinex) magnesium 250 mg tablet 500 mg PO HS 09/28/22 08/11/23 melatonin 3 mg capsule 3 mg PO HS 09/28/22 08/11/23 ferrous sulfate 325 mg (65 mg 325 mg PO DAILY 10/13/22 08/11/23 iron) tablet (Iron (ferrous sulfate)) lorazepam 1 mg tablet 1 mg PO DAILY PRN Anxiety 10/13/22 08/11/23 vitamin B complex (B 1 tablet PO DAILY 10/13/22 08/11/23 Complex-Vitamin B12 tablet) amiodarone 400 mg tablet 200 mg PO DAILY 03/23/23 08/11/23 metoprolol succinate 25 mg PO BID 03/23/23 08/11/23 potassium chloride 20 mEq 20 meq PO DAILY 04/23/23 08/11/23 tablet,extended release cetirizine 10 mg capsule (Zyrtec) 10 mg PO DAILY 06/23/23 08/11/23 guaifenesin 600 mg tablet, 600 mg PO BID 06/23/23 08/11/23 extended release 12 hr (Mucinex) Allergies Allergy/AdvReac Type Severity Reaction Status Date / Time loratadine Allergy Unknown Hives Verified 08/23/23 10:41 Review of Systems Review of Systems: All systems reviewed & are unremarkable except as noted in HPI and below Constitutional: Constitutional: Denies chills, Reports fatigue, Denies fever(s) and Reports weakness ENT: Reports system reviewed and no additional complaints, except as documented Cardiovascular: Cardiovascular: Reports no additional cardiovascular complaints Respiratory: Respiratory: Reports no additional respiratory complaints Gastrointestinal: Gastrointestinal: Denies abdominal pain, Reports diarrhea, Denies nausea and Denies vomiting Genitourinary: Genitourinary: Reports no additional female genitourinary complaints Musculoskeletal: Musculoskeletal: Reports no additional musculoskeletal complaints [facility] Past Medical History Medical History Atrial fibrillation Depression Depression with anxiety Dilated cardiomyopathy Essential hypertension Gout Hypothyroidism Hypovolemic shock Mixed hyperlipidemia 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 She is . She quit smoking many years ago. Code status full code Smoking packs per day: 2 Smoking cigarettes per day: 40.0 Years smoked: 20 Smoking pack-years: 40.00 Smoking status: Former smoker Tobacco type: cigarettes Second hand tobacco smoke exposure: No Smoking end date: 06/21/01 Alcohol intake: never Substance use: never Substance use type: does not use Lack of Trans
[2023-08-23 12:45] LABS: Appearance Urine Clear (Clear); Bilirubin Urine Negative (Negative); Blood Urine Negative (Negative); Color Urine Yellow (Yellow); Glucose Urine UA Negative (Negative); Ketones Urine Negative (Negative); Leukocyte Esterase Ur Negative LEU/UL (Negative); Nitrate Urine Negative (Negative); Protein Urine Negative (Negative); Specific Grav Ur 1.017 (1.001-1.035); Urobilinogen Urine 0.2 mg/dL (<2.0); pH Urine 5.5 (5.0-9.0)
[2023-08-23 12:52] LABS: Add Urine Microscopic? NO
== END 2023-08-23 15:46 | disposition home or self-care (01) ==
PROVIDERS: Emergency Provider Emergency Medicine; PCP Family Medicine
DX: R19.7 Diarrhea, unspecified (principal); E86.0 Dehydration; C34.90 Malignant neoplasm of unspecified part of unspecified bronchus or lung; I48.91 Unspecified atrial fibrillation; I42.0 Dilated cardiomyopathy; I10 Essential (primary) hypertension; E03.9 Hypothyroidism, unspecified; E78.2 Mixed hyperlipidemia; E11.9 Type 2 diabetes mellitus without complications; M10.9 Gout, unspecified; F41.8 Other specified anxiety disorders; Z87.891 Personal history of nicotine dependence; Z90.710 Acquired absence of both cervix and uterus; Z79.01 Long term (current) use of anticoagulants; Z79.84 Long term (current) use of oral hypoglycemic drugs; Z79.630 Long term (current) use of alkylating agent; Z79.620 Long term (current) use of immunosuppressive biologic; R94.31 Abnormal electrocardiogram [ECG] [EKG]
CPT/HCPCS: 36415; 80053; 81003; 85025; 93005; 96360; 99284; J7030

== ENCOUNTER 2023-09-09 10:38 | Observation (INO) | payer MEDICARE, SELFPAY ==
[2023-09-09] VITALS (15 sets, daily range): BP systolic 123–169; BP diastolic 58–75; PULSE 65–88; RESP 16–18; TEMP 36.6–36.7; O2SAT 97–100; BMI 23.1
--- NOTE | ~2023-09-09 | XR_ITS ---
EXAMINATION: XR chest 1V portable INDICATION: Nausea and vomiting TECHNIQUE: Portable AP chest at 2122 hours COMPARISON: 04/26/2023 FINDINGS: A right subclavian Port-A-Cath ends with its tip in the distal superior vena cava. There is a small right pleural effusion with associated right basilar airspace opacities. No pneumothorax is identified. The cardiomediastinal silhouette is stable. IMPRESSION: 1. Small right pleural effusion. 2. Right basilar airspace opacities, consistent with atelectasis versus pneumonia. Reviewed, dictated and finalized at location F. IMPRESSION: 1. Small right pleural effusion. 2. Right basilar airspace opacities, consistent with atelectasis versus pneumon ia.
[2023-09-09 12:29] LABS: Basophils Percent Auto 0.8 % (0.2-1.2); Eosinophils Percent Auto 0.2 % (0-4.4); Hematocrit 32.3 % (37.0-47.0); Hemoglobin 10.5 g/dL (12.0-15.0); Immature Granulocyte Absolute 0.02 K/mm3 (0.00-0.031); Immature Granulocyte Percent A 0.4 % (0-0.5); Lymphocytes Absolute Auto 0.54 K/mm3 (0.9-3.2); Lymphocytes Percent Auto 11.1 % (18.3-44.2); Mean Corpuscular HGB Conc 32.5 g/dl (32-36); Mean Corpuscular Hemoglobin 31.4 pg (26-34); Mean Corpuscular Volume 96.7 fl (80-100); Mean Platelet Volume 9.2 fl (7.4-10.4); Monocytes Absolute Auto 0.5 K/mm3 (0.1-0.6); Monocytes Percent Auto 9.2 % (2.6-8.5); Neutrophils Absolute Auto 3.8 K/mm3 (1.3-6.7); Neutrophils Percent Auto 78.3 % (45.5-73.1); Platelet Count Result 206 k/mm3 (150-375); Red Blood Count 3.34 M/mm3 (4.2-5.4); Red Cell Distribution Width 13.9 % (11.5-14.5); White Blood Count 4.9 K/mm3 (4.5-10.0)
[2023-09-09] MEDS: SODIUM CHLORIDE 0.9% IV 1,000 ML 999 ML IV CONT (12:31)
[2023-09-09 12:44] LABS: Alanine Aminotransferase 10 U/L (6-35); Albumin Level 2.5 g/dL (3.5-5.1); Alkaline Phosphatase 61 U/L (38-126); Anion Gap 5 mmol/L (8-16); Aspartate Amino Transferase 16 U/L (14-36); Bilirubin,Total 0.4 mg/dL (0.2-1.3); Blood Urea Nitrogen 45 mg/dL (7-17); Calcium 8.7 mg/dL (8.4-10.2); Carbon Dioxide 18 mmol/L (22-30); Chloride 109 mmol/L (98-107); Estimated CRCL calculation 27 ml/min; Estimated Glomerular Filt Rate 40; Glucose 74 mg/dL (65-110); Lipase 56 U/L (23-300); Potassium 4.1 mmol/L (3.4-5.0); Sodium 132 mmol/L (137-145)
[2023-09-09 12:58] LABS: Lactic Acid Reflex 0.7 mmol/L (0.7-2.0)
--- NOTE | 2023-09-09 13:06 | ED.GENADULT ---
HPI - General Adult General Chief complaint: Nausea/Vomiting/Diarrhea Stated complaint: CHEMO DIARRHEA DEHYDRATED Time Seen by Provider: 09/09/23 11:53 History of Present Illness HPI narrative: Patient is a 78-year-old female who presents ER with feeling dehydrated. Patient has been having diarrhea for weeks. Recently diagnosed with C diff. She has been on Dificid. She reports she is still having 3-5 loose stools a day. No fevers or chills or sweats. No chest pain. No abdominal pain. No loss of consciousness. Patient is currently undergoing chemotherapy for lung cancer. Related Data Home Medications Medication Instructions Recorded Confirmed cholecalciferol (vitamin D3) 50 50 mcg PO DAILY 09/24/22 09/01/23 mcg (2,000 unit) tablet fluticasone propionate 50 2 spray intranasal DAILY 09/24/22 09/01/23 mcg/actuation nasal spray,suspension guaifenesin 600 mg tablet, 600 mg PO BID 09/24/22 09/01/23 extended release 12 hr (Mucinex) magnesium 250 mg tablet 500 mg PO HS 09/28/22 09/01/23 melatonin 3 mg capsule 3 mg PO HS 09/28/22 09/01/23 ferrous sulfate 325 mg (65 mg 325 mg PO DAILY 10/13/22 09/01/23 iron) tablet (Iron (ferrous sulfate)) lorazepam 1 mg tablet 1 mg PO DAILY PRN Anxiety 10/13/22 09/01/23 vitamin B complex (B 1 tablet PO DAILY 10/13/22 09/01/23 Complex-Vitamin B12 tablet) amiodarone 400 mg tablet 200 mg PO DAILY 03/23/23 09/01/23 metoprolol succinate 25 mg PO BID 03/23/23 09/01/23 potassium chloride 20 mEq 20 meq PO DAILY 04/23/23 09/01/23 tablet,extended release cetirizine 10 mg capsule (Zyrtec) 10 mg PO DAILY 06/23/23 09/01/23 guaifenesin 600 mg tablet, 600 mg PO BID 06/23/23 09/01/23 extended release 12 hr (Mucinex) Allergies Allergy/AdvReac Type Severity Reaction Status Date / Time loratadine Allergy Unknown Hives Verified 08/23/23 10:41 Review of Systems Review of Systems: All systems reviewed & are unremarkable except as noted in HPI and below Constitutional: Constitutional: Denies chills, Reports fatigue, Denies fever(s) and Reports weakness ENT: Reports system reviewed and no additional complaints, except as documented Cardiovascular: Cardiovascular: Reports no additional cardiovascular complaints Respiratory: Respiratory: Reports no additional respiratory complaints Gastrointestinal: Gastrointestinal: Denies abdominal pain, Reports diarrhea, Denies nausea and Denies vomiting Genitourinary: Genitourinary: Reports no additional female genitourinary complaints [facility] Past Medical History Medical History (Updated 09/09/23 @ 18:07 by Johnson Garcia MD) Atrial fibrillation C. 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 She is . She quit smoking many years ago. Code status full code Smoking packs per day: 2 Smoking cigarettes per day: 40.0 Years smoked: 20 Smoking pack-years: 40.00 Smoking status: Former smoker Tobacco type: cigarettes Second hand tobacco smoke exposure: No Smoking end date: 06/21/01 Alcohol intake: never Substance use: never Substance use type: does not use Lack of Transportation: No Lack of Food: Never True Current Housing: I Have Housing Concerned About Future Housing: No Difficulty Paying Ga
[2023-09-09 13:31] LABS: Appearance Urine Clear (Clear); Bacteria Urine None Seen /hpf; Bilirubin Urine Negative (Negative); Blood Urine Negative (Negative); Color Urine Yellow (Yellow); Glucose Urine UA Negative (Negative); Ketones Urine Trace mg/dL (Negative); Leukocyte Esterase Ur 1+ LEU/UL (Negative); Need Manual Microscopic Reviewed; Nitrate Urine Negative (Negative); Protein Urine Negative (Negative); RBC Urine 0-2 /hpf (0-2); Specific Grav Ur 1.018 (1.001-1.035); Squamous Epithelial Cell Urine Few /hpf (Few); Urobilinogen Urine 0.2 mg/dL (<2.0); WBC Urine 0-5 /hpf (0-3); pH Urine 5.5 (5.0-9.0)
[2023-09-09 13:32] LABS: Add Urine Microscopic? YES
[2023-09-09] MEDS: LACTATED RINGERS 1,000 ML 999 ML IV CONT (14:35)
[2023-09-09] MEDS: PANTOPRAZOLE SODIUM IV 40 MG VIAL IV PUSH (16:11)
--- NOTE | 2023-09-09 20:00 | ADMGEN ---
This patient, Jessica Waldron, was admitted to Medical Room 253-01. Patient/family oriented to hospital policies and general routines including ID bracelet, bed and alarms, visiting hours, pain management, procedures, bathroom and other care routines, personal items, smoking policy, room service/diet, and visiting hours. Information on how to activate the Rapid Response Team has been discussed. Patient/Family are encouraged to report perceived risks to care and to ask questions if they do not understand what they are told or what they should do.
--- NOTE | 2023-09-09 20:03 | PHAR ---
PT'S HOME MED BELSOMRA (SUVOREXANT) 10 MG TABS VERIFIED BY PHARMACY
[2023-09-09 20:17] LABS: Hematocrit 32.7 % (37.0-47.0); Hemoglobin 10.2 g/dL (12.0-15.0)
--- NOTE | 2023-09-09 20:45 | PM.IMHP ---
H&P: HPI History of Present Illness Date/Time: 09/09/23 20:45 Chief Complaint: diarrhea Narrative: this is a 78-year-old female with past medical history significant for lung cancer, Clostridium difficile. Patient has been on Dificid in the outpatient setting however still having numerous bowel movements a day, feeling very weak unable to care for herself at home has had weight loss of 80+ lb.Decided to present to the emergency room for evaluation. Review of Systems Review of Systems: Diarrhea PMFSH Past Medical History Medical History (Updated 09/09/23 @ 18:07 by Johnson Garcia MD) Atrial fibrillation C. 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 She is . She quit smoking many years ago. Code status full code Smoking packs per day: 2 Smoking cigarettes per day: 40.0 Years smoked: 20 Smoking pack-years: 40.00 Smoking status: Former smoker Tobacco type: cigarettes Second hand tobacco smoke exposure: No Smoking end date: 06/21/01 Alcohol intake: never Substance use: never Substance use type: does not use Do You Feel Safe in your Home?: Yes Lack of Transportation: No Lack of Food: Never True Current Housing: I Have Housing Concerned About Future Housing: No Difficulty Paying Gas/Electric Bills: No Difficulty Paying for Meds: No Currently Unemployed: No Education: Bachelor's Degree Difficulty w/ Childcare or Family Care: No Living arrangements: alone Additional living arrangements comments: DAUGHTERS X3 LIVE WITHIN 1/2 MILE OF PT'S HOME Occupation/Education: retired Gender identity (if verbalized by the patient): Female Sexual Orientation (if Verbalized by the Patient): Straight or Heterosexual Spiritual care concerns: No Meds Home Medications and Allergies Home Medications Medication Instructions Recorded Confirmed Type apixaban 5 mg tablet (Eliquis) 5 mg PO BID #60 tabs 08/29/22 09/09/23 Rx cholecalciferol (vitamin D3) 50 50 mcg PO DAILY 09/24/22 09/09/23 History mcg (2,000 unit) tablet fluticasone propionate 50 2 spray intranasal DAILY PRN 09/24/22 09/09/23 History mcg/actuation nasal Allergy Symptoms spray,suspension ferrous sulfate 325 mg (65 mg 325 mg PO BID 10/13/22 09/09/23 History iron) tablet (Iron (ferrous sulfate)) lorazepam 1 mg tablet 1 mg PO DAILY PRN Anxiety 10/13/22 09/09/23 History vitamin B complex (B 1 tablet PO DAILY 10/13/22 09/09/23 History Complex-Vitamin B12 tablet) metformin 500 mg tablet,extended 1,000 mg PO DAILY #180 tabs 10/30/22 09/09/23 Rx release 24 hr sertraline 50 mg tablet 50 mg PO DAILY #90 tabs 12/09/22 09/09/23 Rx lancets (Accu-Chek Fastclix Lancet #[id number] ea 02/15/23 09/09/23 Rx Drum) amiodarone 400 mg tablet 200 mg PO HS 03/23/23 09/09/23 History metoprolol succinate 25 mg PO BID 03/23/23 09/09/23 History pantoprazole 40 mg tablet,delayed 40 mg PO DAILY #90 tabs 04/19/23 09/09/23 Rx release levothyroxine 50 mcg tablet 50 mcg PO DAILY #30 tabs 05/03/23 09/09/23 Rx cetirizine 10 mg capsule (Zyrtec) 10 mg PO DAILY PRN Allergy Symptoms 06/23/23 09/09/23 History guaifenesin 600 mg tablet, 600 mg PO HS PRN Congestion 06/23/23 09/09/23 History extended release 12
[2023-09-09] MEDS: APIXABAN 5 MG TABLET PO (22:53)
[2023-09-09] MEDS: ATORVASTATIN 20 MG TABLET PO (22:53)
[2023-09-09] MEDS: METOPROLOL SUCCINATE EXT REL 25 MG TABCR PO (22:53)
[2023-09-09] MEDS: AMIODARONE HCL 200 MG TABLET PO (22:53)
[2023-09-09] MEDS: FIDAXOMICIN 200 MG TABLET PO (22:54)
[2023-09-10] VITALS (9 sets, daily range): BP systolic 110–120; BP diastolic 52–56; PULSE 62–70; RESP 14–16; TEMP 36.4–36.9; O2SAT 97–98; BMI 23.1
[2023-09-10 01:48] LABS: Hematocrit 29.8 % (37.0-47.0); Hemoglobin 9.2 g/dL (12.0-15.0)
[2023-09-10] MEDS: LEVOTHYROXINE SODIUM 50 MCG TABLET PO (06:37)
[2023-09-10] MEDS: APIXABAN 5 MG TABLET PO ×2 (08:30→20:35)
[2023-09-10] MEDS: METOPROLOL SUCCINATE EXT REL 25 MG TABCR PO ×2 (08:30→20:35)
[2023-09-10] MEDS: FIDAXOMICIN 200 MG TABLET PO ×2 (08:30→20:35)
[2023-09-10] MEDS: PANTOPRAZOLE SODIUM IV 40 MG VIAL IV PUSH ×2 (08:31→16:39)
[2023-09-10] MEDS: MEGESTROL ACETATE (*CHEMO) ORAL SUSP 40 MG/ML SYR 200 MG PO (08:31)
[2023-09-10] MEDS: SERTRALINE HCL 50 MG TABLET PO (08:31)
[2023-09-10] MEDS: FERROUS SULFATE 325 MG TABLET DR PO ×2 (08:31→16:39)
--- NOTE | 2023-09-10 08:39 | PM.IMPN ---
Progress Note: A&P Assessment and Plan (1) C. difficile colitis: Code(s): A04.72 - Enterocolitis due to Clostridium difficile, not specified as recurrent Status: Acute Assessment and Plan: 09/09/23: Admit to regular medical floor continue Dificid GI consult 09/10/23: Continue with current treatment plan Patient had recent history of C diff, was seen at [facility] and treated with Difacid and Vancomycin. She received a course of antibiotics recently for an upper respiratory infection. Patient has history of hemorrhoids and had a positive occult stool this admission, likely due to inflammation due to chronic diarrhea. H and H stable GI will see patient today. Recent colonoscopy shown polyps and hemorrhoids, no active bleeding (2) C. difficile diarrhea: Code(s): A04.72 - Enterocolitis due to Clostridium difficile, not specified as recurrent Status: Acute Assessment and Plan: 09/10/23: see above (3) Type 2 diabetes mellitus without complications: Qualifiers: Diabetes mellitus long term care pharmacist insulin use: without long term care pharmacist use Qualified Code(s): E11.9 - Type 2 diabetes mellitus without complications Code(s): E11.9 - Type 2 diabetes mellitus without complications Status: Acute Assessment and Plan: 09/09/23: holding metformin 09/10/23: Blood sugars ranging 74-124 Last hemoglobin A1c was 5.5 on 04/29/2023 Accu-Cheks AC and HS Glycemic protocol ordered Sliding scale insulin ordered, low-dose Continue to hold metformin (4) Atrial fibrillation: Code(s): I48.91 - Unspecified atrial fibrillation Status: Chronic Assessment and Plan: 09/10/2023: Rate controlled Continue Eliquis and amiodarone DC cardiac tele monitoring (5) SCC of lung (small cell carcinoma): Code(s): C34.90 - Malignant neoplasm of unspecified part of unspecified bronchus or lung Status: Chronic Assessment and Plan: Of note Time Spent With Patient Time with patient: 25 - 35 minutes Subjective Date/time seen: 09/10/23 08:39 Interval history: This is a 78-year-old female who presented to the hospital on 09/09/2023 with chief complaint of diarrhea. Workup in the hospital included a chest x-ray which shows a small right pleural effusion, right basilar airspace opacities consistent with atelectasis versus pneumonia. Initial labs showed a hemoglobin of 10.5 sodium 132 bicarb 18 BUN creatinine 3 EGFR 40, liver total protein. A UA also which trace ketones, 1+ leukocytes, otherwise normal. C diff was sent and was positive. Blood cultures were obtained and are pending. Patient given 2 L of IV fluids and Protonix while in the ED. patient was placed on Dificid. On examination today patient denies any fever, chills, nausea, vomiting, abdominal pain, chest pain, shortness a breath. Patient endorses 1 episode of diarrhea this morning. Labs today revealed hemoglobin of 9.7, sodium 135, chloride 112, bicarb 17, BUN 32, creatinine 1.2 blood glucose 169, magnesium 1.3, albumin 2.3. Patient given 3 g of Mag. We will continue with Dificid. Patient states that she does have history of hemorrhoids which likely could of contributed to her positive occult stool. GI will see patient today. Review of Systems Review of Systems: All systems reviewed & are unremarkable except as noted in HPI and below Constitutional: Constitutional: Reports as per HPI and Reports no additional constitutional complaints Eyes: Eyes: Reports as per HPI and Reports no additional eye complaints ENT: Reports system reviewed and no additional complaints, except as documented and Reports as per HPI Cardiovascular: Cardiovascular: Reports as per HPI and Reports no additional cardiovascular complaints Respiratory: Respiratory: Reports as per HPI and Reports no additional respiratory complaints Gastrointestinal: Gastrointestinal: Reports as per HPI and Reports no additional gastrointestin
[2023-09-10 09:01] LABS: Hematocrit 31.4 % (37.0-47.0); Hemoglobin 9.7 g/dL (12.0-15.0); Mean Corpuscular HGB Conc 30.9 g/dl (32-36); Mean Corpuscular Hemoglobin 30.8 pg (26-34); Mean Corpuscular Volume 99.7 fl (80-100); Mean Platelet Volume 8.9 fl (7.4-10.4); Platelet Count Result 224 k/mm3 (150-375); Red Blood Count 3.15 M/mm3 (4.2-5.4); Red Cell Distribution Width 14.1 % (11.5-14.5); White Blood Count 6.5 K/mm3 (4.5-10.0)
[2023-09-10 09:20] LABS: Alanine Aminotransferase 8 U/L (6-35); Albumin Level 2.3 g/dL (3.5-5.1); Alkaline Phosphatase 52 U/L (38-126); Anion Gap 6 mmol/L (8-16); Aspartate Amino Transferase 15 U/L (14-36); Bilirubin,Total 0.3 mg/dL (0.2-1.3); Blood Urea Nitrogen 32 mg/dL (7-17); Calcium 8.4 mg/dL (8.4-10.2); Carbon Dioxide 17 mmol/L (22-30); Chloride 112 mmol/L (98-107); Estimated CRCL calculation 29 ml/min; Estimated Glomerular Filt Rate 44; Glucose 40 mg/dL (65-110); Magnesium 1.3 mg/dL (1.6-2.3); Phosphorus 4.3 mg/dL (2.5-4.5); Sodium 135 mmol/L (137-145)
[2023-09-10 09:27] LABS: Glucose Point of Care 46 mg/dl (65-105)
[2023-09-10 09:58] LABS: Glucose Point of Care 66 mg/dl (65-105)
[2023-09-10 10:34] LABS: Glucose Point of Care 88 mg/dl (65-105)
[2023-09-10 12:02] LABS: Glucose Point of Care 169 mg/dl (65-105)
[2023-09-10] MEDS: MAGNESIUM SULFATE 3GM/D5W100ML 3 GM/100 ML BAG IVPB (13:10)
[2023-09-10] MEDS: CENTRAL LINE FLUSH 10 ML IV PUSH ×2 (13:15→22:20)
[2023-09-10 15:08] LABS: Sodium Urine Random 66 meq/L
--- NOTE | 2023-09-10 15:18 | WPDGICN ---
Assessment and Plan Assessment and plan (1) C. difficile colitis: Code(s): A04.72 - Enterocolitis due to Clostridium difficile, not specified as recurrent Status: Acute Assessment and Plan: continue dificid. pt has had one BM today. on tecentriq, maybe contributing to colitis. (2) C. difficile diarrhea: Code(s): A04.72 - Enterocolitis due to Clostridium difficile, not specified as recurrent Status: Acute (3) GI bleed: Code(s): K92.2 - Gastrointestinal hemorrhage, unspecified Status: Acute Assessment and Plan: Initial labs showed a hemoglobin of 10.5 and trending downward, today at 9.7. HGb on 08/31 was normal at 12.5. She denies obvious blood loss, black stools, nausea, vomiting, or fevers. will monitor H&H. (4) SCC of lung (small cell carcinoma): Code(s): C34.90 - Malignant neoplasm of unspecified part of unspecified bronchus or lung Status: Chronic Assessment and Plan: follow-up in outpatient setting (5) Atrial fibrillation: Code(s): I48.91 - Unspecified atrial fibrillation Status: Chronic Assessment and Plan: rate controlled and anticoagulated GI Consult Note Consult date/time: 09/10/23 15:18 Reason for consult: gi bleeding, c diff colitis HPI: Jessica Waldron is a 78 year old female who presented to the hospital on 09/09/2023 with complaints of diarrhea and dehydration. 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 C-diff stool study was positive. pt states she was first diagnosed with C-diff when she was admitted at [facility] in was started on oral antibiotics. Diarrhea initially improved but returned approximately 2 weeks ago. Initial labs showed a hemoglobin of 10.5 and trending downward, today at 9.7. HGb on 08/31 was normal at 12.5. She denies obvious blood loss, black stools, nausea, vomiting, or fevers.stool occult positive. She reports abdominal cramping and decreased appetite. She has hx of GERD maintained on pantoprazole 40 mg daily. She denies any Nsaid use. She is on Eliquis 5 mg BID due to her hx of Afib. Pt last colonoscopy was in 2014 with polyps and hemorrhoids. Unsure if ever had EGD. Review of Systems Constitutional: Constitutional: Reports as per HPI Eyes: Eyes: Reports as per HPI ENT: Reports as per HPI Cardiovascular: Cardiovascular: Reports as per HPI Respiratory: Respiratory: Reports as per HPI Gastrointestinal: Gastrointestinal: Reports as per HPI Genitourinary: Genitourinary: Reports as per HPI Musculoskeletal: Musculoskeletal: Reports as per HPI Neurologic: Reports as per HPI [facility] Past Medical History Medical History (Updated 09/10/23 @ 09:00 by Marlene Morelos, LINDA) Atrial fibrillation C. 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 She is . She quit smoking many years ago. Code status full code Smoking packs per day: 2 Smoking cigarettes per day: 40.0 Years smoked: 20 Smoking pack-years: 40.00 Smoking status: Former smoker Tobacco type: cigarettes Second hand tobacco smoke exposure: No Smoking end date: 06/21/01 Alcohol intake
[2023-09-10 17:11] LABS: Glucose Point of Care 116 mg/dl (65-105)
[2023-09-10 20:23] LABS: Glucose Point of Care 151 mg/dl (65-105)
[2023-09-10] MEDS: AMIODARONE HCL 200 MG TABLET PO (20:34)
[2023-09-10] MEDS: ATORVASTATIN 20 MG TABLET PO (20:35)
[2023-09-11] VITALS (7 sets, daily range): BP systolic 123–129; BP diastolic 50–60; PULSE 62–81; RESP 16–18; TEMP 36.4–37.3; O2SAT 96–98
[2023-09-11] MEDS: LEVOTHYROXINE SODIUM 50 MCG TABLET PO (06:50)
[2023-09-11] MEDS: CENTRAL LINE FLUSH 10 ML IV PUSH ×3 (06:50→21:16)
[2023-09-11 06:54] LABS: Hematocrit 29.4 % (37.0-47.0); Hemoglobin 9.2 g/dL (12.0-15.0); Mean Corpuscular HGB Conc 31.3 g/dl (32-36); Mean Corpuscular Hemoglobin 30.8 pg (26-34); Mean Corpuscular Volume 98.3 fl (80-100); Mean Platelet Volume 8.5 fl (7.4-10.4); Platelet Count Result 205 k/mm3 (150-375); Red Blood Count 2.99 M/mm3 (4.2-5.4); Red Cell Distribution Width 13.9 % (11.5-14.5); White Blood Count 4.5 K/mm3 (4.5-10.0)
[2023-09-11 07:09] LABS: Alanine Aminotransferase 10 U/L (6-35); Albumin Level 2.3 g/dL (3.5-5.1); Alkaline Phosphatase 54 U/L (38-126); Anion Gap 3 mmol/L (8-16); Aspartate Amino Transferase 19 U/L (14-36); Bilirubin,Total 0.2 mg/dL (0.2-1.3); Blood Urea Nitrogen 23 mg/dL (7-17); Calcium 8.1 mg/dL (8.4-10.2); Carbon Dioxide 21 mmol/L (22-30); Chloride 111 mmol/L (98-107); Estimated CRCL calculation 34 ml/min; Estimated Glomerular Filt Rate 54; Glucose 86 mg/dL (65-110); Magnesium 1.8 mg/dL (1.6-2.3); Phosphorus 3.1 mg/dL (2.5-4.5); Potassium 3.9 mmol/L (3.4-5.0); Sodium 135 mmol/L (137-145)
[2023-09-11 08:22] LABS: Glucose Point of Care 84 mg/dl (65-105)
[2023-09-11] MEDS: APIXABAN 5 MG TABLET PO ×2 (10:16→21:15)
[2023-09-11] MEDS: FERROUS SULFATE 325 MG TABLET DR PO ×2 (10:16→18:12)
[2023-09-11] MEDS: FIDAXOMICIN 200 MG TABLET PO ×2 (10:16→21:16)
[2023-09-11] MEDS: SERTRALINE HCL 50 MG TABLET PO (10:16)
[2023-09-11] MEDS: METOPROLOL SUCCINATE EXT REL 25 MG TABCR PO ×2 (10:17→21:15)
[2023-09-11] MEDS: PANTOPRAZOLE SODIUM IV 40 MG VIAL IV PUSH ×2 (10:19→18:12)
[2023-09-11] MEDS: MEGESTROL ACETATE (*CHEMO) ORAL SUSP 40 MG/ML SYR 200 MG PO (10:19)
[2023-09-11 11:58] LABS: Glucose Point of Care 170 mg/dl (65-105)
--- NOTE | 2023-09-11 13:07 | WPDGIPROGNO ---
Progress Note: A&P Assessment and Plan (1) C. difficile colitis: Code(s): A04.72 - Enterocolitis due to Clostridium difficile, not specified as recurrent Status: Acute Assessment and Plan: on treatment with dificid she says that diarrhea is improved no abdominal pain (2) Occult blood in stools: Code(s): R19.5 - Other fecal abnormalities Status: Acute Assessment and Plan: probably from c diff no need to do colonoscopy hgb stable (3) Dehydration: Code(s): E86.0 - Dehydration Status: Inactive Assessment and Plan: treated (4) Type 2 diabetes mellitus without complications: Qualifiers: Diabetes mellitus terminal manager insulin use: without terminal manager use Qualified Code(s): E11.9 - Type 2 diabetes mellitus without complications Code(s): E11.9 - Type 2 diabetes mellitus without complications Status: Acute (5) SCC of lung (small cell carcinoma): Code(s): C34.90 - Malignant neoplasm of unspecified part of unspecified bronchus or lung Status: Chronic Assessment and Plan: on treatment with keytruda as outpatient (6) DWAIN (acute kidney injury): Code(s): N17.9 - Acute kidney failure, unspecified Status: Acute Assessment and Plan: resolved Subjective Date/time seen: 09/11/23 13:07 Interval history: she is doing much better today and comfortable, less diarrhea she is in good spirits Review of Systems Review of Systems: All systems reviewed & are unremarkable except as noted in HPI and below Exam Const: General: comfortable and no acute distress HENMT: Face/Nose/Sinus: Normal nares present Eyes: Sclera: sclerae normal Neck: Neck: supple Resp: Effort & Inspection: normal respiratory effort Auscultation: clear to auscultation bilaterally Cardio: Rate: regular rate Rhythm: regular rhythm GI: Inspection: normal to inspection GI Palp: Yes Soft to palpation and No Tenderness to palpation present (GI) Auscultation: normal bowel sounds Skin: General skin exam: normal color Neuro: Speech: normal speech Motor exam (neuro): 5/5 motor strength present throughout Extrem: General: normal to inspection Psych: Mental Status: mental status grossly normal Objective Data Vital Signs Vital Signs: Vital Signs - 24 hr 09/10/23 14:43 09/10/23 19:32 09/10/23 19:56 Temperature 98.4 F 97.6 F Pulse Rate 67 68 Respiratory Rate 16 14 Blood Pressure 120/56 L 110/56 L Pulse Oximetry 97 97 Oxygen Delivery Room Air 09/10/23 20:34 09/10/23 20:35 09/11/23 04:54 Temperature 98.7 F Pulse Rate 68 68 62 Respiratory Rate 18 Blood Pressure 124/50 L Pulse Oximetry 98 Oxygen Delivery 09/11/23 08:53 09/11/23 10:17 09/11/23 10:17 Temperature Pulse Rate 81 81 Respiratory Rate 16 Blood Pressure 129/60 Pulse Oximetry 96 Oxygen Delivery Room Air 09/11/23 10:09 Temperature Pulse Rate Respiratory Rate Blood Pressure Pulse Oximetry Oxygen Delivery Room Air Intake/Output Intake/Output: Intake & Output 09/08/23 09/09/23 09/10/23 09/11/23 23:59 23:59 23:59 23:59 Intake Total 1999 920 220 Output Total 300 300 Balance 1700 620 220 Meds/Results Medications: Active Medications Generic Name Dose Route Start Last Admin Trade Name Joseq PRN Reason Stop Dose Admin Acetaminophen 650 mg 09/09/23 18:02 Acetaminophen 325 Mg Tablet PO Q4H PRN Mild Pain (1-3) or Fever Hydrocodone Bitart/Acetaminophen 1 tab 09/09/23 18:02 Hydrocodone/Acetaminophen (*Crx) 5-325 Mg Tablet PO Q4H PRN Pain Rated 4-6 Amiodarone HCl 200 mg 09/09/23 21:15 09/10/23 20:34 Amiodarone Hcl 200 Mg Tablet PO 200 mg HS ANSHUL Administration Apixaban 5 mg 09/09/23 21:10 09/11/23 10:16 Apixaban 5 Mg Tablet PO 5 mg Q12HR ANSHUL Administration Atorvastatin Calcium 20 mg 09/09/23 21:00 09/10/23 20:35 Atorvastatin 20 Mg Tablet PO 20
--- NOTE | 2023-09-11 16:22 | P.PNIM_ITS ---
Progress Note: A&P Assessment and Plan (1) C. difficile colitis: Code(s): A04.72 - Enterocolitis due to Clostridium difficile, not specified as recurrent Status: Acute Assessment and Plan: 09/09/23: * Admit to regular medical floor * continue Dificid * GI consult 09/10/23: * Continue with current treatment plan * Patient had recent history of C diff, was seen at [facility] and treated with Difacid and Vancomycin. * She received a course of antibiotics recently for an upper respiratory infection. * Patient has history of hemorrhoids and had a positive occult stool this admission, likely due to inflammation due to chronic diarrhea. H and H stable * GI will see patient today. * Recent colonoscopy shown polyps and hemorrhoids, no active bleeding 09/11/2023: * Continue with current treatment plan * GI seen patient today and thinks that Tecentriq may be contributing to the colitis and diarrhea. * Continue Dificid * Patient still having diarrhea (2) C. 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: without residential use Qualified Code(s): E11.9 - Type 2 diabetes mellitus without complications Code(s): E11.9 - Type 2 diabetes mellitus without complications Status: Acute Assessment and Plan: 09/09/23: * holding metformin 09/10/23: * Blood sugars ranging 74-124 * Last hemoglobin A1c was 5.5 on 04/29/2023 * Accu-Cheks AC and HS * Glycemic protocol ordered * Sliding scale insulin ordered, low-dose * Continue to hold metformin 09/11/2023: * Continue with current treatment plan (4) Atrial fibrillation: Code(s): I48.91 - Unspecified atrial fibrillation Status: Chronic Assessment and Plan: 09/10/2023: * Rate controlled * Continue Eliquis and amiodarone * DC cardiac tele monitoring 09/11/2023: * No change to current treatment plan (5) SCC of lung (small cell carcinoma): Code(s): C34.90 - Malignant neoplasm of unspecified part of unspecified bronchus or lung Status: Chronic Assessment and Plan: Of note Time Spent With Patient Time with patient: 25 - 35 minutes Subjective Date/time seen: 09/11/23 16:22 Interval history: 09/10/23: This is a 78-year-old female who presented to the hospital on 09/09/2023 with chief complaint of diarrhea. Workup in the hospital included a chest x-ray which shows a small right pleural effusion, right basilar airspace opacities consistent with atelectasis versus pneumonia. Initial labs showed a hemoglobin of 10.5 sodium 132 bicarb 18 BUN creatinine 3 EGFR 40, liver total protein. A UA also which trace ketones, 1+ leukocytes, otherwise normal. C diff was sent and was positive. Blood cultures were obtained and are pending. Patient given 2 L of IV fluids and Protonix while in the ED. patient was placed on Dificid. On examination today patient denies any fever, chills, nausea, vomiting, abdominal pain, chest pain, shortness a breath. Patient endorses 1 episode of diarrhea this morning. Labs today revealed hemoglobin of 9.7, sodium 135, chloride 112, bicarb 17, BUN 32, creatinine 1.2 blood glucose 169, magnesium 1.3, albumin 2.3. Patient given 3 g of Mag. We will continue with Dificid. Patient states that she does have history of hemorrhoids which likely could of contributed to her positive occul
--- NOTE | 2023-09-11 16:22 | PM.IMPN ---
Progress Note: A&P Assessment and Plan (1) C. difficile colitis: Code(s): A04.72 - Enterocolitis due to Clostridium difficile, not specified as recurrent Status: Acute Assessment and Plan: 09/09/23: Admit to regular medical floor continue Dificid GI consult 09/10/23: Continue with current treatment plan Patient had recent history of C diff, was seen at [facility] and treated with Difacid and Vancomycin. She received a course of antibiotics recently for an upper respiratory infection. Patient has history of hemorrhoids and had a positive occult stool this admission, likely due to inflammation due to chronic diarrhea. H and H stable GI will see patient today. Recent colonoscopy shown polyps and hemorrhoids, no active bleeding 09/11/2023: Continue with current treatment plan GI seen patient today and thinks that Tecentriq may be contributing to the colitis and diarrhea. Continue Dificid Patient still having diarrhea (2) C. difficile diarrhea: Code(s): A04.72 - Enterocolitis due to Clostridium difficile, not specified as recurrent Status: Acute Assessment and Plan: 09/10/23: see above (3) Type 2 diabetes mellitus without complications: Qualifiers: Diabetes mellitus correction insulin use: without termite control representative use Qualified Code(s): E11.9 - Type 2 diabetes mellitus without complications Code(s): E11.9 - Type 2 diabetes mellitus without complications Status: Acute Assessment and Plan: 09/09/23: holding metformin 09/10/23: Blood sugars ranging 74-124 Last hemoglobin A1c was 5.5 on 04/29/2023 Accu-Cheks AC and HS Glycemic protocol ordered Sliding scale insulin ordered, low-dose Continue to hold metformin 09/11/2023: Continue with current treatment plan (4) Atrial fibrillation: Code(s): I48.91 - Unspecified atrial fibrillation Status: Chronic Assessment and Plan: 09/10/2023: Rate controlled Continue Eliquis and amiodarone DC cardiac tele monitoring 09/11/2023: No change to current treatment plan (5) SCC of lung (small cell carcinoma): Code(s): C34.90 - Malignant neoplasm of unspecified part of unspecified bronchus or lung Status: Chronic Assessment and Plan: Of note Time Spent With Patient Time with patient: 25 - 35 minutes Subjective Date/time seen: 09/11/23 16:22 Interval history: 09/10/23: This is a 78-year-old female who presented to the hospital on 09/09/2023 with chief complaint of diarrhea. Workup in the hospital included a chest x-ray which shows a small right pleural effusion, right basilar airspace opacities consistent with atelectasis versus pneumonia. Initial labs showed a hemoglobin of 10.5 sodium 132 bicarb 18 BUN creatinine 3 EGFR 40, liver total protein. A UA also which trace ketones, 1+ leukocytes, otherwise normal. C diff was sent and was positive. Blood cultures were obtained and are pending. Patient given 2 L of IV fluids and Protonix while in the ED. patient was placed on Dificid. On examination today patient denies any fever, chills, nausea, vomiting, abdominal pain, chest pain, shortness a breath. Patient endorses 1 episode of diarrhea this morning. Labs today revealed hemoglobin of 9.7, sodium 135, chloride 112, bicarb 17, BUN 32, creatinine 1.2 blood glucose 169, magnesium 1.3, albumin 2.3. Patient given 3 g of Mag. We will continue with Dificid. Patient states that she does have history of hemorrhoids which likely could of contributed to her positive occult stool. GI will see patient today. 09/11/23: On examination today patient is alert and oriented x3, lying in the bed. Family is at bedside. She denies any new complaints today. She still reports having episodes of diarrhea however it has slowed down significantly from the beginning. Labs today reveal hemoglobin of 9.2, sodium 135, bicarb 21, creatinine 1.0, EGFR 54, blood sugar 151-170, magnesium 1.8. GI fo
[2023-09-11 17:13] LABS: Glucose Point of Care 119 mg/dl (65-105)
[2023-09-11 21:00] LABS: Glucose Point of Care 103 mg/dl (65-105)
[2023-09-11] MEDS: ATORVASTATIN 20 MG TABLET PO (21:16)
[2023-09-11] MEDS: AMIODARONE HCL 200 MG TABLET PO (21:16)
[2023-09-12 04:04] VITALS: BP 151/65; PULSE 80; RESP 20; TEMP 36.6; O2SAT 100
[2023-09-12] MEDS: LEVOTHYROXINE SODIUM 50 MCG TABLET PO (06:55)
[2023-09-12] MEDS: CENTRAL LINE FLUSH 10 ML IV PUSH ×2 (06:55→13:31)
[2023-09-12 07:05] LABS: Hematocrit 27.8 % (37.0-47.0); Hemoglobin 8.9 g/dL (12.0-15.0); Mean Corpuscular Hemoglobin 31.3 pg (26-34); Mean Corpuscular Volume 97.9 fl (80-100); Mean Platelet Volume 8.6 fl (7.4-10.4); Platelet Count Result 183 k/mm3 (150-375); Red Blood Count 2.84 M/mm3 (4.2-5.4); Red Cell Distribution Width 13.9 % (11.5-14.5); White Blood Count 4.9 K/mm3 (4.5-10.0)
[2023-09-12 07:16] LABS: Alanine Aminotransferase 8 U/L (6-35); Albumin Level 2.2 g/dL (3.5-5.1); Alkaline Phosphatase 53 U/L (38-126); Anion Gap 1 mmol/L (8-16); Aspartate Amino Transferase 18 U/L (14-36); Bilirubin,Total 0.3 mg/dL (0.2-1.3); Blood Urea Nitrogen 17 mg/dL (7-17); Carbon Dioxide 23 mmol/L (22-30); Chloride 113 mmol/L (98-107); Estimated CRCL calculation 38 ml/min; Estimated Glomerular Filt Rate > 60; Glucose 75 mg/dL (65-110); Magnesium 1.4 mg/dL (1.6-2.3); Phosphorus 3.1 mg/dL (2.5-4.5); Potassium 3.7 mmol/L (3.4-5.0); Sodium 137 mmol/L (137-145)
--- NOTE | 2023-09-12 07:25 | PM.DS ---
DS: Admitting Diagnosis Discharge Date 09/12/23 Admitting Diagnosis C diff colitis C diff diarrhea type 2 diabetes mellitus without complication small cell carcinoma of the lung SI ADH atrial fibrillation dilated cardiomyopathy DS: Discharge Diagnosis Discharge Diagnosis (1) C. difficile colitis: Code(s): A04.72 - Enterocolitis due to Clostridium difficile, not specified as recurrent Status: Acute (2) C. difficile diarrhea: Code(s): A04.72 - Enterocolitis due to Clostridium difficile, not specified as recurrent Status: Acute (3) Type 2 diabetes mellitus without complications: Qualifiers: Diabetes mellitus retirement insulin use: without extermination supervisor use Qualified Code(s): E11.9 - Type 2 diabetes mellitus without complications Code(s): E11.9 - Type 2 diabetes mellitus without complications Status: Acute (4) Atrial fibrillation: Code(s): I48.91 - Unspecified atrial fibrillation Status: Chronic (5) SCC of lung (small cell carcinoma): Code(s): C34.90 - Malignant neoplasm of unspecified part of unspecified bronchus or lung Status: Chronic DS: Summary Hospital Course Reason for hospitalization: C diff colitis C diff diarrhea type 2 diabetes mellitus without complication small cell carcinoma of the lung SI ADH atrial fibrillation dilated cardiomyopathy Hospital Course: 09/10/23: This is a 78-year-old female who presented to the hospital on 09/09/2023 with chief complaint of diarrhea.? Workup in the hospital included a chest x-ray which shows a small right pleural effusion, right basilar airspace opacities consistent with atelectasis versus pneumonia.? Initial labs showed a hemoglobin of 10.5 sodium 132 bicarb 18 BUN creatinine 3 EGFR 40, liver total protein.? A UA also which trace ketones, 1+ leukocytes, otherwise normal.? C diff was sent and was positive.? Blood cultures were obtained and are pending.? Patient given 2 L of IV fluids and Protonix while in the ED. patient was placed on Dificid. On examination today patient denies any fever, chills, nausea, vomiting, abdominal pain, chest pain, shortness a breath.? Patient endorses 1 episode of diarrhea this morning.? Labs today revealed hemoglobin of 9.7, sodium 135, chloride 112, bicarb 17, BUN 32, creatinine 1.2 blood glucose 169, magnesium 1.3, albumin 2.3.? Patient given 3 g of Mag.? We will continue with Dificid.? Patient states that she does have history of hemorrhoids which likely could of contributed to her positive occult stool.? GI will see patient today. 09/11/23: On examination today patient is alert and oriented x3, lying in the bed.? Family is at bedside.? She denies any new complaints today.? She still reports having episodes of diarrhea however it has slowed down significantly from the beginning.? Labs today reveal hemoglobin of 9.2, sodium 135, bicarb 21, creatinine 1.0, EGFR 54, blood sugar 151-170, magnesium 1.8.? GI following. 09/12/2023: patient denies any new complaints today. She states that her diarrhea has pretty much subsided. Labs today show a hemoglobin of 8.9, and a magnesium of 1.4, albumin 2.2 otherwise unremarkable. Blood cultures are showing no growth to date on preliminary read. Patient is stable for discharge at this time. She was instructed to finish her Dificid that she has at home and then start her 7 day course of vancomycin. After her vancomycin she will start probiotics. She will need to follow up with her primary care physician in 1 week. Final diagnosis: C diff colitis, C diff diarrhea Status at Discharge Cognitive/behavioral status at discharge: alert oriented x4 Functional status at discharge: independent ambulation Overall status at discharge: patient is progressing back to baseline Time Spent with Patient Time attestation: Total time spent providing and/or coordinating discharge services: Time spent: Greater than 30 minutes Exam Narrative:
[2023-09-12 08:25] LABS: Glucose Point of Care 88 mg/dl (65-105)
[2023-09-12 09:04] VITALS: BP 128/80; PULSE 86; RESP 16; O2SAT 97
[2023-09-12 09:06] VITALS: PULSE 86
[2023-09-12] MEDS: PANTOPRAZOLE SODIUM IV 40 MG VIAL IV PUSH (09:06)
[2023-09-12] MEDS: SERTRALINE HCL 50 MG TABLET PO (09:06)
[2023-09-12] MEDS: APIXABAN 5 MG TABLET PO (09:06)
[2023-09-12] MEDS: METOPROLOL SUCCINATE EXT REL 25 MG TABCR PO (09:06)
[2023-09-12] MEDS: FERROUS SULFATE 325 MG TABLET DR PO (09:06)
[2023-09-12] MEDS: FIDAXOMICIN 200 MG TABLET PO (09:06)
[2023-09-12] MEDS: MEGESTROL ACETATE (*CHEMO) ORAL SUSP 40 MG/ML SYR 200 MG PO (09:07)
--- NOTE | 2023-09-12 10:39 | WPDGIPROGNO ---
Progress Note: A&P Assessment and Plan (1) C. difficile colitis: Code(s): A04.72 - Enterocolitis due to Clostridium difficile, not specified as recurrent Status: Acute Assessment and Plan: on treatment with dificid much better, had normal BM earlier today she can go home (2) Occult blood in stools: Code(s): R19.5 - Other fecal abnormalities Status: Acute Assessment and Plan: probably from c diff no need to do colonoscopy hgb stable (3) Dehydration: Code(s): E86.0 - Dehydration Status: Inactive Assessment and Plan: treated (4) Type 2 diabetes mellitus without complications: Qualifiers: Diabetes mellitus [facility] insulin use: without [facility] use Qualified Code(s): E11.9 - Type 2 diabetes mellitus without complications Code(s): E11.9 - Type 2 diabetes mellitus without complications Status: Acute (5) SCC of lung (small cell carcinoma): Code(s): C34.90 - Malignant neoplasm of unspecified part of unspecified bronchus or lung Status: Chronic Assessment and Plan: on treatment with keytruda as outpatient (6) DWAIN (acute kidney injury): Code(s): N17.9 - Acute kidney failure, unspecified Status: Acute Assessment and Plan: resolved Subjective Date/time seen: 09/12/23 10:39 Interval history: had normal BM earlier today, no more diarrhea she is doing ok and probably going home later Review of Systems Review of Systems: All systems reviewed & are unremarkable except as noted in HPI and below Exam Const: General: comfortable and no acute distress HENMT: Face/Nose/Sinus: Normal nares present Eyes: Sclera: sclerae normal Neck: Neck: supple Resp: Effort & Inspection: normal respiratory effort Auscultation: clear to auscultation bilaterally Cardio: Rate: regular rate Rhythm: regular rhythm GI: Inspection: normal to inspection GI Palp: Yes Soft to palpation and No Tenderness to palpation present (GI) Auscultation: normal bowel sounds Skin: General skin exam: normal color Neuro: Speech: normal speech Motor exam (neuro): 5/5 motor strength present throughout Extrem: General: normal to inspection Psych: Mental Status: mental status grossly normal Objective Data Vital Signs Vital Signs: Vital Signs - 24 hr 09/11/23 14:12 09/11/23 19:50 09/11/23 20:29 Temperature 99.1 F 97.6 F Pulse Rate 78 72 Respiratory Rate 16 16 Blood Pressure 123/52 L 129/54 L Pulse Oximetry 97 98 Oxygen Delivery Room Air 09/11/23 21:15 09/11/23 21:16 09/11/23 22:23 Temperature Pulse Rate 72 72 Respiratory Rate Blood Pressure Pulse Oximetry 97 Oxygen Delivery Room Air 09/12/23 04:04 09/12/23 09:04 09/12/23 09:06 Temperature 98 F Pulse Rate 80 86 86 Respiratory Rate 20 16 Blood Pressure 151/65 H 128/80 Pulse Oximetry 100 97 Oxygen Delivery 09/12/23 09:05 Temperature Pulse Rate Respiratory Rate Blood Pressure Pulse Oximetry Oxygen Delivery Room Air Intake/Output Intake/Output: Intake & Output 09/09/23 09/10/23 09/11/23 09/12/23 23:59 23:59 23:59 23:59 Intake Total 1999 920 340 690 Output Total 300 300 Balance 1700 620 340 690 Meds/Results Medications: Active Medications Generic Name Dose Route Start Last Admin Trade Name Freq PRN Reason Stop Dose Admin Acetaminophen 650 mg 09/09/23 18:02 Acetaminophen 325 Mg Tablet PO Q4H PRN Mild Pain (1-3) or Fever Hydrocodone Bitart/Acetaminophen 1 tab 09/09/23 18:02 Hydrocodone/Acetaminophen (*Crx) 5-325 Mg Tablet PO Q4H PRN Pain Rated 4-6 Amiodarone HCl 200 mg 09/09/23 21:15 09/11/23 21:16 Amiodarone Hcl 200 Mg Tablet PO 200 mg HS ANSHUL Administration Apixaban 5 mg 09/09/23 21:10 09/12/23 09:06 Apixaban 5 Mg Tablet PO 5 mg Q12HR ANSHUL Administration Atorvastatin Calcium 20 mg 09/09/23 21:00 09/11/23 21:16 Atorvastatin 20 M
--- NOTE | 2023-09-12 10:54 | PC.NURSE ---
Steel Grinder reviewed assessment findings and charting completed by student, Je Montiel, and agree with them.
[2023-09-12 12:01] LABS: Glucose Point of Care 157 mg/dl (65-105)
[2023-09-12] MEDS: HEPARIN SODIUM LOCK FLUSH 500 UNITS/5 ML SYRINGE IV PUSH (13:31)
[2023-09-13 20:00] LABS: Osmolality, Urine 570 mOsm/kg (50-1200)
== END 2023-09-12 13:45 | disposition home or self-care (01) ==
LOC: ANHED 18:07 → ANH2MED 19:40 → ANH3MEDSUR 09-13 11:17
PROVIDERS: Nurse Practitioner Acute Care; Admitting Provider Family Medicine; Emergency Provider Emergency Medicine; PCP Family Medicine; Visit Provider Internal Medicine
DX: A04.72 Enterocolitis due to Clostridium difficile, not specified as recurrent (principal); K92.2 Gastrointestinal hemorrhage, unspecified; E86.0 Dehydration; E11.9 Type 2 diabetes mellitus without complications; C34.90 Malignant neoplasm of unspecified part of unspecified bronchus or lung; N17.9 Acute kidney failure, unspecified; I48.91 Unspecified atrial fibrillation; R63.0 Anorexia; R63.4 Abnormal weight loss; Z68.23 Body mass index [BMI] 23.0-23.9, adult; T45.1X5A Adverse effect of antineoplastic and immunosuppressive drugs, initial encounter; K12.30 Oral mucositis (ulcerative), unspecified; E22.2 Syndrome of inappropriate secretion of antidiuretic hormone; Z95.0 Presence of cardiac pacemaker; I10 Essential (primary) hypertension; K21.9 Gastro-esophageal reflux disease without esophagitis; I42.0 Dilated cardiomyopathy; F41.8 Other specified anxiety disorders; M10.9 Gout, unspecified; E03.9 Hypothyroidism, unspecified; E78.5 Hyperlipidemia, unspecified; Z87.891 Personal history of nicotine dependence; Z79.01 Long term (current) use of anticoagulants; Z79.60 Long term (current) use of unspecified immunomodulators and immunosuppressants; Z79.84 Long term (current) use of oral hypoglycemic drugs; Z79.899 Other long term (current) drug therapy
CPT/HCPCS: 36415; 71045; 80053; 82948; 83605; 83690; 83735; 83930; 83935; 84100; 84300; 85014; 85018; 85025; 85027; 87040; 96361; 96374; 97161; 97165; 99285; A9270; C9113; G0378; J1642; J3475; J7030; J7120

== ENCOUNTER 2023-09-24 09:00 | Outpatient (RCR) | payer MEDICARE, SELFPAY ==
--- NOTE | 2022-10-02 14:26 | PC.NURSE ---
Spoke with Louise CALVIN she will order ondansetron and emla cream. Advised patient to have Imodium and a stool softener at home.
[2022-10-05 11:48] LABS: Basophils Percent Auto 0.1 % (0.2-1.2); Hematocrit 33.3 % (37.0-47.0); Hemoglobin 11.8 g/dL (12.0-15.0); Immature Granulocyte Absolute 0.07 K/mm3 (0.00-0.031); Immature Granulocyte Percent A 0.8 % (0-0.5); Lymphocytes Percent Auto 3.6 % (18.3-44.2); Mean Corpuscular HGB Conc 35.4 g/dl (32-36); Mean Corpuscular Hemoglobin 32.4 pg (26-34); Mean Corpuscular Volume 91.5 fl (80-100); Mean Platelet Volume 8.8 fl (7.4-10.4); Monocytes Absolute Auto 0.4 K/mm3 (0.1-0.6); Monocytes Percent Auto 4.6 % (2.6-8.5); Neutrophils Absolute Auto 7.6 K/mm3 (1.3-6.7); Neutrophils Percent Auto 90.9 % (45.5-73.1); Platelet Count Result 404 k/mm3 (150-375); Red Blood Count 3.64 M/mm3 (4.2-5.4); Red Cell Distribution Width 13.1 % (11.5-14.5); White Blood Count 8.4 K/mm3 (4.5-10.0)
[2022-10-05 12:00] LABS: Blood Urea Nitrogen 17 mg/dL (8-26); Carbon Dioxide 27 mmol/L (22-30); Chloride 85 mmol/L (98-109); Estimated Glomerular Filt Rate > 60; Glucose 132 mg/dL (70-105); Potassium 4.4 mmol/L (3.5-4.9); Sodium 122 mmol/L (138-146)
[2022-10-05 12:30] VITALS: BP 156/82; PULSE 70; RESP 20; TEMP 36.7; O2SAT 95
[2022-10-05] MEDS: OLANZapine DISPERTAB 5 MG PO (14:04)
[2022-10-05] MEDS: PALONOSETRON HCL 0.25 MG/5 ML VIAL IV PUSH (14:04)
[2022-10-05] MEDS: FOSAPREPITANT DIMEGLUMINE 150 MG in SODIUM CHLORIDE 0.9% IV 150 ML 300 MG IVPB (14:05)
--- NOTE | 2022-10-05 14:48 | PC.NURSE ---
Started patient's dexamethasone, emend, and aloxi at 1440. Delay with medications due to lack of blood return from port. Port reaccessed and after much position changes obtained excellent blood return from port.
[2022-10-05 14:58] LABS: Alanine Aminotransferase 23 U/L (6-35); Albumin Level 4.1 g/dL (3.5-5.1); Alkaline Phosphatase 79 U/L (38-126); Anion Gap 8 mmol/L (8-16); Aspartate Amino Transferase 35 U/L (14-36); Bilirubin,Total 0.6 mg/dL (0.2-1.3); Blood Urea Nitrogen 18 mg/dL (7-17); Calcium 9.1 mg/dL (8.4-10.2); Carbon Dioxide 29 mmol/L (22-30); Chloride 84 mmol/L (98-107); Estimated CRCL calculation 67 ml/min; Estimated Glomerular Filt Rate > 60; Glucose 123 mg/dL (65-110); Magnesium 1.7 mg/dL (1.6-2.3); Potassium 4.7 mmol/L (3.4-5.0); Sodium 121 mmol/L (137-145)
[2022-10-05 15:50] VITALS: BP 136/73; PULSE 72; O2SAT 94
[2022-10-05] MEDS: HEPARIN SODIUM LOCK FLUSH 500 UNITS/5 ML SYRINGE IV PUSH (15:57)
[2022-10-12 08:25] LABS: Basophils Percent Auto 0.6 % (0.2-1.2); Eosinophils Percent Auto 0.6 % (0-4.4); Hemoglobin 10.7 g/dL (12.0-15.0); Immature Granulocyte Absolute 0.03 K/mm3 (0.00-0.031); Immature Granulocyte Percent A 0.6 % (0-0.5); Lymphocytes Absolute Auto 0.39 K/mm3 (0.9-3.2); Lymphocytes Percent Auto 8.2 % (18.3-44.2); Mean Corpuscular HGB Conc 32.4 g/dl (32-36); Mean Corpuscular Hemoglobin 31.3 pg (26-34); Mean Corpuscular Volume 96.5 fl (80-100); Mean Platelet Volume 8.8 fl (7.4-10.4); Monocytes Absolute Auto 0.4 K/mm3 (0.1-0.6); Monocytes Percent Auto 7.8 % (2.6-8.5); Neutrophils Absolute Auto 3.9 K/mm3 (1.3-6.7); Neutrophils Percent Auto 82.2 % (45.5-73.1); Platelet Count Result 214 k/mm3 (150-375); Red Blood Count 3.42 M/mm3 (4.2-5.4); White Blood Count 4.7 K/mm3 (4.5-10.0)
[2022-10-12 08:30] LABS: Blood Urea Nitrogen 15 mg/dL (8-26); Carbon Dioxide 27 mmol/L (22-30); Chloride 97 mmol/L (98-109); Estimated CRCL calculation 52 ml/min; Estimated Glomerular Filt Rate > 60; Glucose 148 mg/dL (70-105); Sodium 135 mmol/L (138-146)
[2022-10-12 09:14] VITALS: BP 124/88; PULSE 128; TEMP 36.1; O2SAT 96
[2022-10-12 10:02] LABS: Alanine Aminotransferase 28 U/L (6-35); Albumin Level 3.4 g/dL (3.5-5.1); Alkaline Phosphatase 66 U/L (38-126); Anion Gap 3 mmol/L (8-16); Aspartate Amino Transferase 28 U/L (14-36); Bilirubin,Total 0.5 mg/dL (0.2-1.3); Blood Urea Nitrogen 16 mg/dL (7-17); Calcium 8.5 mg/dL (8.4-10.2); Carbon Dioxide 32 mmol/L (22-30); Chloride 97 mmol/L (98-107); Estimated CRCL calculation 59 ml/min; Estimated Glomerular Filt Rate > 60; Glucose 143 mg/dL (65-110); Magnesium 1.6 mg/dL (1.6-2.3); Sodium 132 mmol/L (137-145)
[2022-10-12 11:39] VITALS: PULSE 126
[2022-10-12] MEDS: ONDANSETRON INJ 4 MG/2 ML VIAL 8 MG IV PUSH (11:43)
[2022-10-12] MEDS: HEPARIN SODIUM LOCK FLUSH 500 UNITS/5 ML SYRINGE IV PUSH (11:45)
[2022-10-12 11:47] VITALS: BP 143/94
[2022-10-12 12:00] VITALS: BP 142/87
[2022-10-13 13:47] VITALS: BP 142/96; PULSE 128; RESP 20; TEMP 36; O2SAT 97
[2022-10-13 14:00] VITALS: BP 141/89
[2022-10-13] MEDS: ONDANSETRON INJ 4 MG/2 ML VIAL 8 MG IV PUSH (14:09)
[2022-10-13 15:52] VITALS: BP 152/103
[2022-10-13 15:53] VITALS: BP 145/94
[2022-10-13] MEDS: HEPARIN SODIUM LOCK FLUSH 500 UNITS/5 ML SYRINGE IV PUSH (15:57)
[2022-10-14 13:28] VITALS: BP 137/97; PULSE 128; RESP 20; TEMP 36.6; O2SAT 96
[2022-10-14] MEDS: ONDANSETRON INJ 4 MG/2 ML VIAL 8 MG IV PUSH (13:47)
[2022-10-14] MEDS: HEPARIN SODIUM LOCK FLUSH 500 UNITS/5 ML SYRINGE IV PUSH (15:37)
[2022-10-14 15:45] VITALS: BP 148/91
[2022-11-02 08:46] LABS: Hematocrit 27.8 % (37.0-47.0); Hemoglobin 8.9 g/dL (12.0-15.0); Mean Corpuscular Hemoglobin 32.1 pg (26-34); Mean Corpuscular Volume 100.4 fl (80-100); Platelet Count Result 188 k/mm3 (150-375); Red Blood Count 2.77 M/mm3 (4.2-5.4); Red Cell Distribution Width 16.6 % (11.5-14.5); White Blood Count 9.6 K/mm3 (4.5-10.0)
[2022-11-02 08:50] LABS: Blood Urea Nitrogen 18 mg/dL (8-26); Carbon Dioxide 23 mmol/L (22-30); Chloride 103 mmol/L (98-109); Estimated CRCL calculation 37 ml/min; Estimated Glomerular Filt Rate 48; Glucose 141 mg/dL (70-105); Ionized Calcium (POC) 1.22 mmol/L (1.11-1.31); Potassium 4.3 mmol/L (3.5-4.9); Sodium 137 mmol/L (138-146)
[2022-11-02] MEDS: HEPARIN SODIUM LOCK FLUSH 500 UNITS/5 ML SYRINGE (09:42)
[2022-11-02 10:15] LABS: Band Neutrophils Percent 9 % (0-6); Metamyelocytes Percent 3 %; Monocytes Absolute Manual 0.86 K/mm3 (0.1-0.90); Monocytes Percent Manual 9 % (3-9); Neutrophils Absolute Manual 6.14 K/mm3 (1.7-7.2); Neutrophils Percent Manual 55 % (46-73); Platelet Estimate Adequate (Adequate); Schistocytes None Seen (NORMAL); Total Cells Counted 100
[2022-11-02 10:16] LABS: Hypochromasia 1+ (NORMAL)
[2022-11-02 10:57] LABS: Alanine Aminotransferase 20 U/L (6-35); Albumin Level 3.4 g/dL (3.5-5.1); Alkaline Phosphatase 64 U/L (38-126); Anion Gap 6 mmol/L (8-16); Aspartate Amino Transferase 29 U/L (14-36); Bilirubin,Total 0.4 mg/dL (0.2-1.3); Blood Urea Nitrogen 19 mg/dL (7-17); Calcium 8.5 mg/dL (8.4-10.2); Carbon Dioxide 27 mmol/L (22-30); Chloride 103 mmol/L (98-107); Estimated CRCL calculation 40 ml/min; Estimated Glomerular Filt Rate 54; Glucose 135 mg/dL (65-110); Potassium 4.3 mmol/L (3.4-5.0); Sodium 136 mmol/L (137-145)
[2022-11-09 10:36] LABS: Basophils Percent Auto 0.5 % (0.2-1.2); Eosinophils Percent Auto 0.5 % (0-4.4); Hematocrit 32.4 % (37.0-47.0); Hemoglobin 10.5 g/dL (12.0-15.0); Immature Granulocyte Absolute 0.06 K/mm3 (0.00-0.031); Lymphocytes Absolute Auto 1.21 K/mm3 (0.9-3.2); Lymphocytes Percent Auto 19.6 % (18.3-44.2); Mean Corpuscular HGB Conc 32.4 g/dl (32-36); Mean Corpuscular Volume 101.9 fl (80-100); Mean Platelet Volume 9.1 fl (7.4-10.4); Monocytes Absolute Auto 0.4 K/mm3 (0.1-0.6); Neutrophils Absolute Auto 4.5 K/mm3 (1.3-6.7); Neutrophils Percent Auto 72.4 % (45.5-73.1); Platelet Count Result 287 k/mm3 (150-375); Red Blood Count 3.18 M/mm3 (4.2-5.4); Red Cell Distribution Width 17.4 % (11.5-14.5); White Blood Count 6.2 K/mm3 (4.5-10.0)
[2022-11-09 10:41] LABS: Blood Urea Nitrogen 19 mg/dL (8-26); Carbon Dioxide 22 mmol/L (22-30); Chloride 104 mmol/L (98-109); Estimated CRCL calculation 44 ml/min; Estimated Glomerular Filt Rate > 60; Glucose 143 mg/dL (70-105); Ionized Calcium (POC) 1.15 mmol/L (1.11-1.31); Potassium 4.2 mmol/L (3.5-4.9); Sodium 138 mmol/L (138-146)
[2022-11-09 10:46] VITALS: BP 117/65; PULSE 68; RESP 20; TEMP 37.1; O2SAT 99
[2022-11-09 11:20] LABS: Alanine Aminotransferase 17 U/L (6-35); Albumin Level 3.8 g/dL (3.5-5.1); Alkaline Phosphatase 53 U/L (38-126); Anion Gap 6 mmol/L (8-16); Aspartate Amino Transferase 18 U/L (14-36); Bilirubin,Total 0.4 mg/dL (0.2-1.3); Blood Urea Nitrogen 20 mg/dL (7-17); Carbon Dioxide 26 mmol/L (22-30); Chloride 104 mmol/L (98-107); Estimated CRCL calculation 49 ml/min; Estimated Glomerular Filt Rate > 60; Glucose 141 mg/dL (65-110); Magnesium 2.1 mg/dL (1.6-2.3); Potassium 4.2 mmol/L (3.4-5.0); Sodium 136 mmol/L (137-145)
[2022-11-09] MEDS: OLANZapine DISPERTAB 5 MG PO (11:51)
[2022-11-09] MEDS: PALONOSETRON HCL 0.25 MG/5 ML VIAL IV PUSH (11:51)
[2022-11-09] MEDS: FOSAPREPITANT DIMEGLUMINE 150 MG in SODIUM CHLORIDE 0.9% IV 150 ML 300 MG IVPB (11:54)
[2022-11-09 14:27] VITALS: BP 134/66
[2022-11-09] MEDS: HEPARIN SODIUM LOCK FLUSH 500 UNITS/5 ML SYRINGE IV PUSH (14:29)
[2022-11-10 13:39] VITALS: BP 140/69; PULSE 68; RESP 18; TEMP 36.9; O2SAT 100
[2022-11-10 15:37] VITALS: BP 145/61
[2022-11-10] MEDS: HEPARIN SODIUM LOCK FLUSH 500 UNITS/5 ML SYRINGE IV PUSH (15:38)
[2022-11-11 12:01] VITALS: BP 142/60; PULSE 65; RESP 18; TEMP 36.7; O2SAT 99
[2022-11-11] MEDS: ONDANSETRON INJ 4 MG/2 ML VIAL 8 MG IV PUSH (12:18)
[2022-11-11] MEDS: HEPARIN SODIUM LOCK FLUSH 500 UNITS/5 ML SYRINGE IV PUSH (14:17)
[2022-11-11 14:22] VITALS: BP 145/59
[2022-11-30 08:26] LABS: Basophils Percent Auto 1.1 % (0.2-1.2); Eosinophils Percent Auto 0.4 % (0-4.4); Hematocrit 33.9 % (37.0-47.0); Hemoglobin 10.7 g/dL (12.0-15.0); Immature Granulocyte Absolute 0.18 K/mm3 (0.00-0.031); Immature Granulocyte Percent A 6.7 % (0-0.5); Lymphocytes Absolute Auto 0.79 K/mm3 (0.9-3.2); Lymphocytes Percent Auto 29.3 % (18.3-44.2); Mean Corpuscular HGB Conc 31.6 g/dl (32-36); Mean Corpuscular Hemoglobin 31.8 pg (26-34); Mean Corpuscular Volume 100.9 fl (80-100); Mean Platelet Volume 9.1 fl (7.4-10.4); Monocytes Absolute Auto 0.5 K/mm3 (0.1-0.6); Monocytes Percent Auto 19.6 % (2.6-8.5); Neutrophils Absolute Auto 1.2 K/mm3 (1.3-6.7); Neutrophils Percent Auto 42.9 % (45.5-73.1); Platelet Count Result 211 k/mm3 (150-375); Red Blood Count 3.36 M/mm3 (4.2-5.4); Red Cell Distribution Width 15.6 % (11.5-14.5); White Blood Count 2.7 K/mm3 (4.5-10.0)
[2022-11-30 08:30] LABS: Blood Urea Nitrogen 16 mg/dL (8-26); Carbon Dioxide 21 mmol/L (22-30); Chloride 103 mmol/L (98-109); Estimated CRCL calculation 33 ml/min; Estimated Glomerular Filt Rate 44; Glucose 178 mg/dL (70-105); Ionized Calcium (POC) 1.21 mmol/L (1.11-1.31); Potassium 3.8 mmol/L (3.5-4.9); Sodium 138 mmol/L (138-146)
[2022-11-30 09:03] VITALS: BP 139/60; PULSE 58; TEMP 36.2; O2SAT 98
[2022-11-30 09:11] LABS: Alanine Aminotransferase 21 U/L (6-35); Albumin Level 3.7 g/dL (3.5-5.1); Alkaline Phosphatase 59 U/L (38-126); Anion Gap 5 mmol/L (8-16); Aspartate Amino Transferase 27 U/L (14-36); Bilirubin,Total 0.4 mg/dL (0.2-1.3); Blood Urea Nitrogen 18 mg/dL (7-17); Calcium 8.8 mg/dL (8.4-10.2); Carbon Dioxide 27 mmol/L (22-30); Chloride 104 mmol/L (98-107); Estimated CRCL calculation 40 ml/min; Estimated Glomerular Filt Rate 54; Glucose 169 mg/dL (65-110); Potassium 3.8 mmol/L (3.4-5.0); Sodium 136 mmol/L (137-145)
[2022-11-30] MEDS: OLANZapine DISPERTAB 5 MG PO (09:55)
[2022-11-30] MEDS: PALONOSETRON HCL 0.25 MG/5 ML VIAL IV PUSH (09:55)
[2022-11-30] MEDS: FOSAPREPITANT DIMEGLUMINE 150 MG in SODIUM CHLORIDE 0.9% IV 150 ML 300 MG IVPB (09:59)
[2022-11-30 12:43] VITALS: BP 135/54
[2022-11-30] MEDS: HEPARIN SODIUM LOCK FLUSH 500 UNITS/5 ML SYRINGE IV PUSH (12:44)
[2022-12-01 13:39] VITALS: BP 144/64; PULSE 70; TEMP 36.3; O2SAT 97
[2022-12-01 15:42] VITALS: BP 149/56
[2022-12-01] MEDS: HEPARIN SODIUM LOCK FLUSH 500 UNITS/5 ML SYRINGE IV PUSH (15:46)
[2022-12-02] MEDS: ONDANSETRON INJ 4 MG/2 ML VIAL 8 MG IV PUSH (09:24)
[2022-12-02] MEDS: HEPARIN SODIUM LOCK FLUSH 500 UNITS/5 ML SYRINGE IV PUSH (11:23)
--- NOTE | 2022-12-03 14:32 | PC.NURSE ---
Documentation was scanned into the patient's record due to downtime on 12/02/22.
[2022-12-23 08:44] LABS: Basophils Percent Auto 0.1 % (0.2-1.2); Hematocrit 34.3 % (37.0-47.0); Immature Granulocyte Percent A 1.3 % (0-0.5); Lymphocytes Absolute Auto 0.51 K/mm3 (0.9-3.2); Lymphocytes Percent Auto 6.7 % (18.3-44.2); Mean Corpuscular HGB Conc 32.1 g/dl (32-36); Mean Corpuscular Hemoglobin 32.4 pg (26-34); Mean Corpuscular Volume 101.2 fl (80-100); Mean Platelet Volume 9.4 fl (7.4-10.4); Monocytes Absolute Auto 0.4 K/mm3 (0.1-0.6); Monocytes Percent Auto 5.7 % (2.6-8.5); Neutrophils Absolute Auto 6.5 K/mm3 (1.3-6.7); Neutrophils Percent Auto 86.2 % (45.5-73.1); Platelet Count Result 271 k/mm3 (150-375); Red Blood Count 3.39 M/mm3 (4.2-5.4); White Blood Count 7.6 K/mm3 (4.5-10.0)
[2022-12-23 08:50] LABS: Blood Urea Nitrogen 19 mg/dL (8-26); Carbon Dioxide 23 mmol/L (22-30); Chloride 103 mmol/L (98-109); Estimated CRCL calculation 55 ml/min; Estimated Glomerular Filt Rate > 60; Glucose 223 mg/dL (70-105); Ionized Calcium (POC) 1.24 mmol/L (1.11-1.31); Potassium 4.7 mmol/L (3.5-4.9); Sodium 135 mmol/L (138-146)
[2022-12-23 09:23] LABS: Alanine Aminotransferase 23 U/L (6-35); Albumin Level 4.2 g/dL (3.5-5.1); Alkaline Phosphatase 61 U/L (38-126); Anion Gap 7 mmol/L (8-16); Aspartate Amino Transferase 22 U/L (14-36); Bilirubin,Total 0.4 mg/dL (0.2-1.3); Blood Urea Nitrogen 19 mg/dL (7-17); Calcium 9.8 mg/dL (8.4-10.2); Carbon Dioxide 25 mmol/L (22-30); Chloride 103 mmol/L (98-107); Estimated CRCL calculation 55 ml/min; Estimated Glomerular Filt Rate > 60; Glucose 219 mg/dL (65-110); Magnesium 1.9 mg/dL (1.6-2.3); Potassium 4.8 mmol/L (3.4-5.0); Sodium 135 mmol/L (137-145)
[2022-12-23 10:02] VITALS: BP 170/76; PULSE 62; TEMP 36.3; O2SAT 98
[2022-12-23] MEDS: OLANZapine DISPERTAB 5 MG PO (11:06)
[2022-12-23] MEDS: PALONOSETRON HCL 0.25 MG/5 ML VIAL IV PUSH (11:08)
[2022-12-23] MEDS: FOSAPREPITANT DIMEGLUMINE 150 MG in SODIUM CHLORIDE 0.9% IV 150 ML 300 MG IVPB (11:10)
[2022-12-23] MEDS: HEPARIN SODIUM LOCK FLUSH 500 UNITS/5 ML SYRINGE IV PUSH (13:51)
[2022-12-23 13:55] VITALS: BP 177/71
[2022-12-24 10:36] VITALS: BP 175/70; PULSE 62; RESP 18; TEMP 36.3; O2SAT 98
[2022-12-24] MEDS: HEPARIN SODIUM LOCK FLUSH 500 UNITS/5 ML SYRINGE IV PUSH (12:56)
[2022-12-24 12:59] VITALS: BP 183/79; PULSE 63; RESP 18; O2SAT 98
[2022-12-25 10:03] VITALS: BP 188/73; PULSE 62; RESP 18; O2SAT 98
[2022-12-25] MEDS: ONDANSETRON INJ 4 MG/2 ML VIAL 8 MG IV PUSH (10:20)
[2022-12-25 12:09] VITALS: BP 181/68
[2022-12-25] MEDS: HEPARIN SODIUM LOCK FLUSH 500 UNITS/5 ML SYRINGE IV PUSH (12:13)
[2023-01-11 08:54] LABS: Basophils Percent Auto 0.7 % (0.2-1.2); Eosinophils Percent Auto 0.4 % (0-4.4); Hematocrit 35.4 % (37.0-47.0); Hemoglobin 11.5 g/dL (12.0-15.0); Immature Granulocyte Absolute 0.11 K/mm3 (0.00-0.031); Immature Granulocyte Percent A 3.9 % (0-0.5); Lymphocytes Percent Auto 28.6 % (18.3-44.2); Mean Corpuscular HGB Conc 32.5 g/dl (32-36); Mean Corpuscular Hemoglobin 32.7 pg (26-34); Mean Corpuscular Volume 100.6 fl (80-100); Mean Platelet Volume 9.3 fl (7.4-10.4); Monocytes Absolute Auto 0.6 K/mm3 (0.1-0.6); Monocytes Percent Auto 22.1 % (2.6-8.5); Neutrophils Absolute Auto 1.2 K/mm3 (1.3-6.7); Neutrophils Percent Auto 44.3 % (45.5-73.1); Platelet Count Result 159 k/mm3 (150-375); Red Blood Count 3.52 M/mm3 (4.2-5.4); Red Cell Distribution Width 14.3 % (11.5-14.5); White Blood Count 2.8 K/mm3 (4.5-10.0)
[2023-01-11 08:59] LABS: Alanine Aminotransferase 27 U/L (6-35); Alkaline Phosphatase 61 U/L (38-126); Anion Gap 8 mmol/L (8-16); Aspartate Amino Transferase 61 U/L (14-36); Bilirubin,Total 0.4 mg/dL (0.2-1.3); Blood Urea Nitrogen 23 mg/dL (7-17); Carbon Dioxide 26 mmol/L (22-30); Chloride 106 mmol/L (98-107); Estimated CRCL calculation 44 ml/min; Estimated Glomerular Filt Rate > 60; Glucose 127 mg/dL (65-110); Potassium 4.4 mmol/L (3.4-5.0); Sodium 140 mmol/L (137-145)
[2023-01-29 16:08] LABS: Hepatitis B Surface Antigen Negative (Negative)
[2023-02-02 10:31] LABS: Basophils Percent Auto 0.7 % (0.2-1.2); Eosinophils Absolute Auto 0.1 K/mm3 (0-0.3); Hematocrit 35.9 % (37.0-47.0); Hemoglobin 11.5 g/dL (12.0-15.0); Immature Granulocyte Absolute 0.02 K/mm3 (0.00-0.031); Immature Granulocyte Percent A 0.3 % (0-0.5); Lymphocytes Absolute Auto 0.94 K/mm3 (0.9-3.2); Mean Corpuscular Hemoglobin 32.6 pg (26-34); Mean Corpuscular Volume 101.7 fl (80-100); Mean Platelet Volume 9.8 fl (7.4-10.4); Monocytes Absolute Auto 0.4 K/mm3 (0.1-0.6); Monocytes Percent Auto 6.1 % (2.6-8.5); Neutrophils Absolute Auto 4.5 K/mm3 (1.3-6.7); Neutrophils Percent Auto 75.9 % (45.5-73.1); Platelet Count Result 178 k/mm3 (150-375); Red Blood Count 3.53 M/mm3 (4.2-5.4); Red Cell Distribution Width 13.6 % (11.5-14.5); White Blood Count 5.9 K/mm3 (4.5-10.0)
[2023-02-02 10:35] LABS: Blood Urea Nitrogen 22 mg/dL (8-26); Carbon Dioxide 26 mmol/L (22-30); Chloride 101 mmol/L (98-109); Estimated CRCL calculation 36 ml/min; Estimated Glomerular Filt Rate 48; Glucose 138 mg/dL (70-105); Ionized Calcium (POC) 1.26 mmol/L (1.11-1.31); Potassium 4.2 mmol/L (3.5-4.9); Sodium 140 mmol/L (138-146)
[2023-02-02 10:36] VITALS: PULSE 61; TEMP 37.1; O2SAT 99
[2023-02-02 10:39] VITALS: BP 139/63
[2023-02-02 12:00] VITALS: BP 140/65
[2023-02-02] MEDS: HEPARIN SODIUM LOCK FLUSH 500 UNITS/5 ML SYRINGE IV PUSH (12:06)
[2023-02-02 12:07] LABS: Alanine Aminotransferase 21 U/L (6-35); Albumin Level 4.3 g/dL (3.5-5.1); Alkaline Phosphatase 59 U/L (38-126); Anion Gap 8 mmol/L (8-16); Aspartate Amino Transferase 28 U/L (14-36); Bilirubin,Total 0.4 mg/dL (0.2-1.3); Blood Urea Nitrogen 23 mg/dL (7-17); Calcium 9.5 mg/dL (8.4-10.2); Carbon Dioxide 28 mmol/L (22-30); Chloride 102 mmol/L (98-107); Estimated CRCL calculation 39 ml/min; Estimated Glomerular Filt Rate 54; Glucose 134 mg/dL (65-110); Potassium 4.3 mmol/L (3.4-5.0); Sodium 138 mmol/L (137-145)
[2023-02-03 14:38] LABS: NIL 0.02 IU/mL; Quantiferon TB Plus, 1T NEGATIVE (NEGATIVE)
[2023-03-02 13:23] LABS: Basophils Percent Auto 0.6 % (0.2-1.2); Eosinophils Absolute Auto 0.1 K/mm3 (0-0.3); Eosinophils Percent Auto 1.2 % (0-4.4); Hematocrit 36.7 % (37.0-47.0); Immature Granulocyte Absolute 0.01 K/mm3 (0.00-0.031); Immature Granulocyte Percent A 0.2 % (0-0.5); Lymphocytes Percent Auto 21.2 % (18.3-44.2); Mean Corpuscular HGB Conc 32.7 g/dl (32-36); Mean Corpuscular Hemoglobin 32.8 pg (26-34); Mean Corpuscular Volume 100.3 fl (80-100); Mean Platelet Volume 10.2 fl (7.4-10.4); Monocytes Absolute Auto 0.4 K/mm3 (0.1-0.6); Monocytes Percent Auto 7.3 % (2.6-8.5); Neutrophils Absolute Auto 3.6 K/mm3 (1.3-6.7); Neutrophils Percent Auto 69.5 % (45.5-73.1); Platelet Count Result 143 k/mm3 (150-375); Red Blood Count 3.66 M/mm3 (4.2-5.4); Red Cell Distribution Width 12.4 % (11.5-14.5); White Blood Count 5.2 K/mm3 (4.5-10.0)
[2023-03-02 13:27] LABS: Blood Urea Nitrogen 19 mg/dL (8-26); Carbon Dioxide 24 mmol/L (22-30); Chloride 106 mmol/L (98-109); Estimated CRCL calculation 36 ml/min; Estimated Glomerular Filt Rate 48; Glucose 108 mg/dL (70-105); Ionized Calcium (POC) 1.21 mmol/L (1.11-1.31); Potassium 4.4 mmol/L (3.5-4.9); Sodium 141 mmol/L (138-146)
[2023-03-02 13:35] VITALS: BP 143/58; PULSE 57; TEMP 36.6; O2SAT 98
[2023-03-02] MEDS: HEPARIN SODIUM LOCK FLUSH 500 UNITS/5 ML SYRINGE IV PUSH (14:54)
[2023-03-02 14:55] VITALS: BP 149/65
[2023-03-02 16:37] LABS: Alanine Aminotransferase 17 U/L (6-35); Albumin Level 3.8 g/dL (3.5-5.1); Alkaline Phosphatase 61 U/L (38-126); Anion Gap 9 mmol/L (8-16); Aspartate Amino Transferase 25 U/L (14-36); Bilirubin,Total 0.5 mg/dL (0.2-1.3); Blood Urea Nitrogen 19 mg/dL (7-17); Calcium 9.1 mg/dL (8.4-10.2); Carbon Dioxide 23 mmol/L (22-30); Chloride 107 mmol/L (98-107); Estimated CRCL calculation 40 ml/min; Estimated Glomerular Filt Rate 54; Glucose 107 mg/dL (65-110); Potassium 4.4 mmol/L (3.4-5.0); Sodium 139 mmol/L (137-145)
[2023-03-23 08:32] LABS: Basophils Percent Auto 0.5 % (0.2-1.2); Eosinophils Absolute Auto 0.1 K/mm3 (0-0.3); Eosinophils Percent Auto 1.8 % (0-4.4); Hematocrit 36.8 % (37.0-47.0); Immature Granulocyte Absolute 0.03 K/mm3 (0.00-0.031); Immature Granulocyte Percent A 0.7 % (0-0.5); Lymphocytes Absolute Auto 0.82 K/mm3 (0.9-3.2); Lymphocytes Percent Auto 18.7 % (18.3-44.2); Mean Corpuscular HGB Conc 32.6 g/dl (32-36); Mean Corpuscular Hemoglobin 32.7 pg (26-34); Mean Corpuscular Volume 100.3 fl (80-100); Mean Platelet Volume 9.4 fl (7.4-10.4); Monocytes Absolute Auto 0.3 K/mm3 (0.1-0.6); Monocytes Percent Auto 5.7 % (2.6-8.5); Neutrophils Absolute Auto 3.2 K/mm3 (1.3-6.7); Neutrophils Percent Auto 72.6 % (45.5-73.1); Platelet Count Result 172 k/mm3 (150-375); Red Blood Count 3.67 M/mm3 (4.2-5.4); Red Cell Distribution Width 12.5 % (11.5-14.5); White Blood Count 4.4 K/mm3 (4.5-10.0)
[2023-03-23 08:36] LABS: Blood Urea Nitrogen 14 mg/dL (8-26); Carbon Dioxide 26 mmol/L (22-30); Chloride 103 mmol/L (98-109); Estimated CRCL calculation 36 ml/min; Estimated Glomerular Filt Rate 48; Glucose 143 mg/dL (70-105); Ionized Calcium (POC) 1.24 mmol/L (1.11-1.31); Potassium 4.2 mmol/L (3.5-4.9); Sodium 141 mmol/L (138-146)
[2023-03-23 09:06] VITALS: BP 166/76; PULSE 59; TEMP 36.8; O2SAT 98
[2023-03-23 10:41] VITALS: BP 175/73
[2023-03-23 12:03] LABS: Alanine Aminotransferase 15 U/L (6-35); Alkaline Phosphatase 56 U/L (38-126); Anion Gap 8 mmol/L (8-16); Aspartate Amino Transferase 23 U/L (14-36); Bilirubin,Total 0.6 mg/dL (0.2-1.3); Blood Urea Nitrogen 15 mg/dL (7-17); Calcium 9.1 mg/dL (8.4-10.2); Carbon Dioxide 27 mmol/L (22-30); Chloride 104 mmol/L (98-107); Estimated CRCL calculation 40 ml/min; Estimated Glomerular Filt Rate 54; Glucose 136 mg/dL (65-110); Potassium 4.3 mmol/L (3.4-5.0); Sodium 139 mmol/L (137-145)
[2023-04-13 09:21] LABS: Basophils Percent Auto 0.4 % (0.2-1.2); Eosinophils Absolute Auto 0.1 K/mm3 (0-0.3); Eosinophils Percent Auto 1.4 % (0-4.4); Hematocrit 37.2 % (37.0-47.0); Hemoglobin 12.4 g/dL (12.0-15.0); Immature Granulocyte Absolute 0.01 K/mm3 (0.00-0.031); Immature Granulocyte Percent A 0.2 % (0-0.5); Lymphocytes Absolute Auto 0.85 K/mm3 (0.9-3.2); Lymphocytes Percent Auto 17.5 % (18.3-44.2); Mean Corpuscular HGB Conc 33.3 g/dl (32-36); Mean Corpuscular Hemoglobin 32.5 pg (26-34); Mean Corpuscular Volume 97.4 fl (80-100); Mean Platelet Volume 9.4 fl (7.4-10.4); Monocytes Absolute Auto 0.3 K/mm3 (0.1-0.6); Monocytes Percent Auto 6.2 % (2.6-8.5); Neutrophils Absolute Auto 3.6 K/mm3 (1.3-6.7); Neutrophils Percent Auto 74.3 % (45.5-73.1); Platelet Count Result 152 k/mm3 (150-375); Red Blood Count 3.82 M/mm3 (4.2-5.4); White Blood Count 4.9 K/mm3 (4.5-10.0)
[2023-04-13 09:25] LABS: Blood Urea Nitrogen 13 mg/dL (8-26); Carbon Dioxide 25 mmol/L (22-30); Chloride 104 mmol/L (98-109); Estimated CRCL calculation 36 ml/min; Estimated Glomerular Filt Rate 48; Glucose 118 mg/dL (70-105); Ionized Calcium (POC) 1.23 mmol/L (1.11-1.31); Potassium 3.8 mmol/L (3.5-4.9); Sodium 142 mmol/L (138-146)
[2023-04-13 09:31] VITALS: BP 146/61; PULSE 54; TEMP 37; O2SAT 97
[2023-04-13] MEDS: HEPARIN SODIUM LOCK FLUSH 500 UNITS/5 ML SYRINGE IV PUSH (11:00)
[2023-04-13 11:01] VITALS: BP 170/76
[2023-04-13 11:40] LABS: Alanine Aminotransferase 16 U/L (6-35); Albumin Level 4.1 g/dL (3.5-5.1); Alkaline Phosphatase 64 U/L (38-126); Anion Gap 6 mmol/L (8-16); Aspartate Amino Transferase 25 U/L (14-36); Bilirubin,Total 0.7 mg/dL (0.2-1.3); Blood Urea Nitrogen 14 mg/dL (7-17); Calcium 9.4 mg/dL (8.4-10.2); Carbon Dioxide 27 mmol/L (22-30); Chloride 105 mmol/L (98-107); Estimated CRCL calculation 43 ml/min; Estimated Glomerular Filt Rate > 60; Glucose 115 mg/dL (65-110); Potassium 3.8 mmol/L (3.4-5.0); Sodium 138 mmol/L (137-145)
[2023-04-23 10:23] LABS: Basophils Percent Auto 0.5 % (0.2-1.2); Eosinophils Absolute Auto 0.1 K/mm3 (0-0.3); Hematocrit 38.3 % (37.0-47.0); Hemoglobin 12.5 g/dL (12.0-15.0); Immature Granulocyte Absolute 0.02 K/mm3 (0.00-0.031); Immature Granulocyte Percent A 0.3 % (0-0.5); Lymphocytes Absolute Auto 0.69 K/mm3 (0.9-3.2); Lymphocytes Percent Auto 11.8 % (18.3-44.2); Mean Corpuscular HGB Conc 32.6 g/dl (32-36); Mean Corpuscular Hemoglobin 32.2 pg (26-34); Mean Corpuscular Volume 98.7 fl (80-100); Mean Platelet Volume 9.7 fl (7.4-10.4); Monocytes Absolute Auto 0.4 K/mm3 (0.1-0.6); Neutrophils Absolute Auto 4.7 K/mm3 (1.3-6.7); Neutrophils Percent Auto 80.4 % (45.5-73.1); Platelet Count Result 194 k/mm3 (150-375); Red Blood Count 3.88 M/mm3 (4.2-5.4); Red Cell Distribution Width 11.7 % (11.5-14.5); White Blood Count 5.8 K/mm3 (4.5-10.0)
[2023-04-23 10:27] LABS: Blood Urea Nitrogen 14 mg/dL (8-26); Carbon Dioxide 29 mmol/L (22-30); Chloride 99 mmol/L (98-109); Estimated CRCL calculation 36 ml/min; Estimated Glomerular Filt Rate 48; Glucose 152 mg/dL (70-105); Ionized Calcium (POC) 1.19 mmol/L (1.11-1.31); Potassium 4.5 mmol/L (3.5-4.9); Sodium 137 mmol/L (138-146)
[2023-04-23 12:41] LABS: Alanine Aminotransferase 16 U/L (6-35); Albumin Level 4.2 g/dL (3.5-5.1); Alkaline Phosphatase 69 U/L (38-126); Anion Gap 7 mmol/L (8-16); Aspartate Amino Transferase 25 U/L (14-36); Bilirubin,Total 0.8 mg/dL (0.2-1.3); Blood Urea Nitrogen 15 mg/dL (7-17); Calcium 9.7 mg/dL (8.4-10.2); Carbon Dioxide 29 mmol/L (22-30); Chloride 99 mmol/L (98-107); Estimated CRCL calculation 43 ml/min; Estimated Glomerular Filt Rate > 60; Glucose 151 mg/dL (65-110); Potassium 4.5 mmol/L (3.4-5.0); Sodium 135 mmol/L (137-145)
[2023-05-05 13:03] LABS: Basophils Percent Auto 0.3 % (0.2-1.2); Eosinophils Percent Auto 0.4 % (0-4.4); Hematocrit 36.6 % (37.0-47.0); Hemoglobin 12.2 g/dL (12.0-15.0); Immature Granulocyte Absolute 0.04 K/mm3 (0.00-0.031); Immature Granulocyte Percent A 0.6 % (0-0.5); Lymphocytes Absolute Auto 0.82 K/mm3 (0.9-3.2); Lymphocytes Percent Auto 11.7 % (18.3-44.2); Mean Corpuscular HGB Conc 33.3 g/dl (32-36); Mean Corpuscular Hemoglobin 31.9 pg (26-34); Mean Corpuscular Volume 95.6 fl (80-100); Mean Platelet Volume 9.3 fl (7.4-10.4); Monocytes Absolute Auto 0.4 K/mm3 (0.1-0.6); Neutrophils Absolute Auto 5.7 K/mm3 (1.3-6.7); Platelet Count Result 246 k/mm3 (150-375); Red Blood Count 3.83 M/mm3 (4.2-5.4); Red Cell Distribution Width 11.3 % (11.5-14.5)
[2023-05-05 13:07] LABS: Blood Urea Nitrogen 17 mg/dL (8-26); Carbon Dioxide 25 mmol/L (22-30); Chloride 102 mmol/L (98-109); Estimated CRCL calculation 35 ml/min; Estimated Glomerular Filt Rate 54; Glucose 97 mg/dL (70-105); Potassium 4.7 mmol/L (3.5-4.9); Sodium 138 mmol/L (138-146)
[2023-05-05 13:17] VITALS: BP 133/60; PULSE 71; TEMP 36.9; O2SAT 95
[2023-05-05] MEDS: PALONOSETRON HCL 0.25 MG/5 ML VIAL IV PUSH (13:37)
[2023-05-05] MEDS: ATROPINE SULFATE 1 MG/ML VIAL 0.25 MG SUB-Q (13:41)
[2023-05-05 15:45] VITALS: BP 146/66
[2023-05-05] MEDS: HEPARIN SODIUM LOCK FLUSH 500 UNITS/5 ML SYRINGE IV PUSH (15:56)
[2023-05-05 16:46] LABS: Alanine Aminotransferase 24 U/L (6-35); Alkaline Phosphatase 79 U/L (38-126); Anion Gap 11 mmol/L (8-16); Aspartate Amino Transferase 32 U/L (14-36); Bilirubin,Total 0.6 mg/dL (0.2-1.3); Blood Urea Nitrogen 17 mg/dL (7-17); Calcium 9.7 mg/dL (8.4-10.2); Carbon Dioxide 25 mmol/L (22-30); Chloride 102 mmol/L (98-107); Estimated CRCL calculation 35 ml/min; Estimated Glomerular Filt Rate 54; Glucose 96 mg/dL (65-110); Potassium 4.8 mmol/L (3.4-5.0); Sodium 138 mmol/L (137-145)
[2023-05-12 12:55] LABS: Eosinophils Percent Auto 5.4 % (0-4.4); Hemoglobin 11.6 g/dL (12.0-15.0); Immature Granulocyte Absolute 0.03 K/mm3 (0.00-0.031); Immature Granulocyte Percent A 5.4 % (0-0.5); Lymphocytes Absolute Auto 0.22 K/mm3 (0.9-3.2); Lymphocytes Percent Auto 39.3 % (18.3-44.2); Mean Corpuscular HGB Conc 34.1 g/dl (32-36); Mean Corpuscular Hemoglobin 31.5 pg (26-34); Mean Corpuscular Volume 92.4 fl (80-100); Mean Platelet Volume 9.7 fl (7.4-10.4); Monocytes Percent Auto 5.4 % (2.6-8.5); Neutrophils Absolute Auto 0.3 K/mm3 (1.3-6.7); Neutrophils Percent Auto 44.5 % (45.5-73.1); Platelet Count Result 120 k/mm3 (150-375); Red Blood Count 3.68 M/mm3 (4.2-5.4); Red Cell Distribution Width 11.1 % (11.5-14.5)
[2023-05-12 12:57] LABS: White Blood Count 0.6 K/mm3 (4.5-10.0)
[2023-05-12 13:00] LABS: Blood Urea Nitrogen 25 mg/dL (8-26); Carbon Dioxide 23 mmol/L (22-30); Chloride 98 mmol/L (98-109); Estimated CRCL calculation 24 ml/min; Estimated Glomerular Filt Rate 34; Glucose 127 mg/dL (70-105); Ionized Calcium (POC) 1.21 mmol/L (1.11-1.31); Potassium 5.5 mmol/L (3.5-4.9); Sodium 131 mmol/L (138-146)
[2023-05-12 13:07] VITALS: BP 153/69; PULSE 83; TEMP 36.4; O2SAT 95
[2023-05-12] MEDS: SODIUM CHLORIDE 0.9% IV 500 ML IV CONT (13:26)
[2023-05-12] MEDS: HEPARIN SODIUM LOCK FLUSH 500 UNITS/5 ML SYRINGE (14:55)
[2023-05-12 16:27] LABS: Alanine Aminotransferase 152 U/L (6-35); Alkaline Phosphatase 522 U/L (38-126); Anion Gap 11 mmol/L (8-16); Aspartate Amino Transferase 71 U/L (14-36); Bilirubin,Total 0.9 mg/dL (0.2-1.3); Blood Urea Nitrogen 25 mg/dL (7-17); Calcium 9.1 mg/dL (8.4-10.2); Carbon Dioxide 22 mmol/L (22-30); Chloride 97 mmol/L (98-107); Estimated CRCL calculation 25 ml/min; Estimated Glomerular Filt Rate 37; Glucose 127 mg/dL (65-110); Potassium 5.7 mmol/L (3.4-5.0); Sodium 130 mmol/L (137-145)
[2023-05-26 08:46] LABS: Basophils Percent Auto 0.7 % (0.2-1.2); Eosinophils Absolute Auto 0.1 K/mm3 (0-0.3); Eosinophils Percent Auto 1.2 % (0-4.4); Hematocrit 26.9 % (37.0-47.0); Hemoglobin 8.6 g/dL (12.0-15.0); Immature Granulocyte Absolute 0.17 K/mm3 (0.00-0.031); Immature Granulocyte Percent A 2.9 % (0-0.5); Lymphocytes Absolute Auto 0.84 K/mm3 (0.9-3.2); Lymphocytes Percent Auto 14.4 % (18.3-44.2); Mean Corpuscular Hemoglobin 31.6 pg (26-34); Mean Corpuscular Volume 98.9 fl (80-100); Mean Platelet Volume 8.8 fl (7.4-10.4); Monocytes Absolute Auto 0.4 K/mm3 (0.1-0.6); Monocytes Percent Auto 6.5 % (2.6-8.5); Neutrophils Absolute Auto 4.3 K/mm3 (1.3-6.7); Neutrophils Percent Auto 74.3 % (45.5-73.1); Platelet Count Result 194 k/mm3 (150-375); Red Blood Count 2.72 M/mm3 (4.2-5.4); Red Cell Distribution Width 13.3 % (11.5-14.5); White Blood Count 5.8 K/mm3 (4.5-10.0)
[2023-05-26 08:51] LABS: Blood Urea Nitrogen 6 mg/dL (8-26); Carbon Dioxide 26 mmol/L (22-30); Chloride 101 mmol/L (98-109); Estimated CRCL calculation 32 ml/min; Estimated Glomerular Filt Rate 48; Glucose 162 mg/dL (70-105); Ionized Calcium (POC) 1.17 mmol/L (1.11-1.31); Potassium 4.3 mmol/L (3.5-4.9); Sodium 141 mmol/L (138-146)
[2023-05-26 09:21] LABS: Alanine Aminotransferase 41 U/L (6-35); Albumin Level 3.1 g/dL (3.5-5.1); Alkaline Phosphatase 110 U/L (38-126); Anion Gap 7 mmol/L (8-16); Aspartate Amino Transferase 36 U/L (14-36); Bilirubin,Total 0.4 mg/dL (0.2-1.3); Blood Urea Nitrogen 7 mg/dL (7-17); Calcium 8.5 mg/dL (8.4-10.2); Carbon Dioxide 27 mmol/L (22-30); Chloride 103 mmol/L (98-107); Estimated CRCL calculation 35 ml/min; Estimated Glomerular Filt Rate 54; Glucose 155 mg/dL (65-110); Potassium 4.3 mmol/L (3.4-5.0); Sodium 137 mmol/L (137-145)
[2023-05-26] MEDS: HEPARIN SODIUM LOCK FLUSH 500 UNITS/5 ML SYRINGE (09:27)
[2023-05-26 16:50] LABS: Iron 60 ug/dL (37-170)
[2023-05-26 17:03] LABS: Percent Iron Saturation 32 % (20-50)
[2023-05-26 17:23] LABS: Folic Acid 9.5 ng/mL (2.76->20); Vitamin B12 > 1000.0 pg/mL (239-931)
[2023-05-28 09:47] LABS: Basophils Absolute Auto 0.1 K/mm3 (0.0-0.1); Eosinophils Percent Auto 0.4 % (0-4.4); Hematocrit 30.5 % (37.0-47.0); Hemoglobin 9.7 g/dL (12.0-15.0); Immature Granulocyte Absolute 0.07 K/mm3 (0.00-0.031); Lymphocytes Absolute Auto 0.82 K/mm3 (0.9-3.2); Lymphocytes Percent Auto 11.3 % (18.3-44.2); Mean Corpuscular HGB Conc 31.8 g/dl (32-36); Mean Corpuscular Hemoglobin 31.7 pg (26-34); Mean Corpuscular Volume 99.7 fl (80-100); Mean Platelet Volume 9.4 fl (7.4-10.4); Monocytes Absolute Auto 0.5 K/mm3 (0.1-0.6); Monocytes Percent Auto 6.9 % (2.6-8.5); Neutrophils Absolute Auto 5.8 K/mm3 (1.3-6.7); Neutrophils Percent Auto 79.4 % (45.5-73.1); Platelet Count Result 228 k/mm3 (150-375); Red Blood Count 3.06 M/mm3 (4.2-5.4); Red Cell Distribution Width 13.4 % (11.5-14.5); White Blood Count 7.3 K/mm3 (4.5-10.0)
[2023-06-02 09:16] LABS: Basophils Percent Auto 0.4 % (0.2-1.2); Eosinophils Absolute Auto 0.1 K/mm3 (0-0.3); Eosinophils Percent Auto 1.9 % (0-4.4); Hematocrit 30.5 % (37.0-47.0); Hemoglobin 9.6 g/dL (12.0-15.0); Immature Granulocyte Absolute 0.05 K/mm3 (0.00-0.031); Immature Granulocyte Percent A 1.1 % (0-0.5); Lymphocytes Absolute Auto 0.57 K/mm3 (0.9-3.2); Lymphocytes Percent Auto 12.3 % (18.3-44.2); Mean Corpuscular HGB Conc 31.5 g/dl (32-36); Mean Corpuscular Hemoglobin 31.2 pg (26-34); Mean Platelet Volume 9.5 fl (7.4-10.4); Monocytes Absolute Auto 0.4 K/mm3 (0.1-0.6); Monocytes Percent Auto 9.1 % (2.6-8.5); Neutrophils Absolute Auto 3.5 K/mm3 (1.3-6.7); Neutrophils Percent Auto 75.2 % (45.5-73.1); Platelet Count Result 157 k/mm3 (150-375); Red Blood Count 3.08 M/mm3 (4.2-5.4); Red Cell Distribution Width 14.6 % (11.5-14.5); White Blood Count 4.6 K/mm3 (4.5-10.0)
[2023-06-02 09:21] LABS: Blood Urea Nitrogen 16 mg/dL (8-26); Carbon Dioxide 27 mmol/L (22-30); Chloride 102 mmol/L (98-109); Estimated CRCL calculation 35 ml/min; Estimated Glomerular Filt Rate 54; Glucose 111 mg/dL (70-105); Ionized Calcium (POC) 1.13 mmol/L (1.11-1.31); Potassium 4.2 mmol/L (3.5-4.9); Sodium 138 mmol/L (138-146)
[2023-06-02] MEDS: HEPARIN SODIUM LOCK FLUSH 500 UNITS/5 ML SYRINGE (09:39)
[2023-06-02 17:07] LABS: Alanine Aminotransferase 40 U/L (6-35); Albumin Level 3.3 g/dL (3.5-5.1); Alkaline Phosphatase 101 U/L (38-126); Anion Gap 6 mmol/L (8-16); Aspartate Amino Transferase 47 U/L (14-36); Bilirubin,Total 0.4 mg/dL (0.2-1.3); Blood Urea Nitrogen 17 mg/dL (7-17); Calcium 8.7 mg/dL (8.4-10.2); Carbon Dioxide 26 mmol/L (22-30); Chloride 104 mmol/L (98-107); Estimated CRCL calculation 39 ml/min; Estimated Glomerular Filt Rate > 60; Glucose 110 mg/dL (65-110); Potassium 4.3 mmol/L (3.4-5.0); Sodium 136 mmol/L (137-145)
[2023-06-09 08:25] LABS: Basophils Percent Auto 0.8 % (0.2-1.2); Eosinophils Absolute Auto 0.5 K/mm3 (0-0.3); Eosinophils Percent Auto 9.5 % (0-4.4); Hemoglobin 10.8 g/dL (12.0-15.0); Immature Granulocyte Absolute 0.07 K/mm3 (0.00-0.031); Immature Granulocyte Percent A 1.4 % (0-0.5); Lymphocytes Percent Auto 13.5 % (18.3-44.2); Mean Corpuscular HGB Conc 31.8 g/dl (32-36); Mean Corpuscular Hemoglobin 31.4 pg (26-34); Mean Corpuscular Volume 98.8 fl (80-100); Mean Platelet Volume 9.4 fl (7.4-10.4); Monocytes Absolute Auto 0.4 K/mm3 (0.1-0.6); Monocytes Percent Auto 8.5 % (2.6-8.5); Neutrophils Absolute Auto 3.4 K/mm3 (1.3-6.7); Neutrophils Percent Auto 66.3 % (45.5-73.1); Platelet Count Result 218 k/mm3 (150-375); Red Blood Count 3.44 M/mm3 (4.2-5.4); Red Cell Distribution Width 14.8 % (11.5-14.5); White Blood Count 5.2 K/mm3 (4.5-10.0)
[2023-06-09 08:31] LABS: Blood Urea Nitrogen 16 mg/dL (8-26); Carbon Dioxide 25 mmol/L (22-30); Chloride 101 mmol/L (98-109); Estimated CRCL calculation 35 ml/min; Estimated Glomerular Filt Rate 54; Glucose 129 mg/dL (70-105); Ionized Calcium (POC) 1.19 mmol/L (1.11-1.31); Potassium 4.3 mmol/L (3.5-4.9); Sodium 138 mmol/L (138-146)
[2023-06-09 08:50] VITALS: BP 143/65; PULSE 61; TEMP 36.1; O2SAT 97
[2023-06-09] MEDS: PALONOSETRON HCL 0.25 MG/5 ML VIAL IV PUSH (08:57)
[2023-06-09] MEDS: ATROPINE SULFATE 1 MG/ML VIAL 0.25 MG SUB-Q (08:58)
[2023-06-09 10:14] LABS: Alanine Aminotransferase 20 U/L (6-35); Albumin Level 3.7 g/dL (3.5-5.1); Alkaline Phosphatase 91 U/L (38-126); Anion Gap 5 mmol/L (8-16); Aspartate Amino Transferase 27 U/L (14-36); Bilirubin,Total 0.6 mg/dL (0.2-1.3); Blood Urea Nitrogen 17 mg/dL (7-17); Calcium 9.3 mg/dL (8.4-10.2); Carbon Dioxide 28 mmol/L (22-30); Chloride 103 mmol/L (98-107); Estimated CRCL calculation 39 ml/min; Estimated Glomerular Filt Rate > 60; Glucose 127 mg/dL (65-110); Potassium 4.4 mmol/L (3.4-5.0); Sodium 136 mmol/L (137-145)
[2023-06-09 11:22] VITALS: BP 158/73
[2023-06-09] MEDS: HEPARIN SODIUM LOCK FLUSH 500 UNITS/5 ML SYRINGE IV PUSH (11:26)
[2023-06-09 11:32] VITALS: BP 158/73
[2023-06-23 08:43] LABS: Basophils Percent Auto 0.5 % (0.2-1.2); Eosinophils Absolute Auto 0.3 K/mm3 (0-0.3); Eosinophils Percent Auto 4.3 % (0-4.4); Hematocrit 33.4 % (37.0-47.0); Hemoglobin 10.7 g/dL (12.0-15.0); Immature Granulocyte Absolute 0.31 K/mm3 (0.00-0.031); Immature Granulocyte Percent A 4.1 % (0-0.5); Lymphocytes Absolute Auto 1.04 K/mm3 (0.9-3.2); Lymphocytes Percent Auto 13.8 % (18.3-44.2); Mean Corpuscular Hemoglobin 32.4 pg (26-34); Mean Corpuscular Volume 101.2 fl (80-100); Mean Platelet Volume 9.5 fl (7.4-10.4); Monocytes Absolute Auto 0.4 K/mm3 (0.1-0.6); Monocytes Percent Auto 5.6 % (2.6-8.5); Neutrophils Absolute Auto 5.4 K/mm3 (1.3-6.7); Neutrophils Percent Auto 71.7 % (45.5-73.1); Platelet Count Result 162 k/mm3 (150-375); Red Cell Distribution Width 15.1 % (11.5-14.5); White Blood Count 7.5 K/mm3 (4.5-10.0)
[2023-06-23 08:52] LABS: Blood Urea Nitrogen 13 mg/dL (8-26); Carbon Dioxide 25 mmol/L (22-30); Chloride 103 mmol/L (98-109); Estimated CRCL calculation 35 ml/min; Estimated Glomerular Filt Rate 54; Glucose 94 mg/dL (70-105); Ionized Calcium (POC) 1.15 mmol/L (1.11-1.31); Potassium 4.4 mmol/L (3.5-4.9); Sodium 141 mmol/L (138-146)
[2023-06-23 09:18] VITALS: BP 153/60; PULSE 60; TEMP 36.2; O2SAT 97
[2023-06-23] MEDS: ATROPINE SULFATE 1 MG/ML VIAL 0.25 MG SUB-Q (09:44)
[2023-06-23] MEDS: PALONOSETRON HCL 0.25 MG/5 ML VIAL IV PUSH (09:44)
[2023-06-23 10:03] LABS: Alanine Aminotransferase 16 U/L (6-35); Albumin Level 3.3 g/dL (3.5-5.1); Alkaline Phosphatase 77 U/L (38-126); Anion Gap 9 mmol/L (8-16); Aspartate Amino Transferase 21 U/L (14-36); Bilirubin,Total 0.4 mg/dL (0.2-1.3); Blood Urea Nitrogen 13 mg/dL (7-17); Calcium 8.6 mg/dL (8.4-10.2); Carbon Dioxide 25 mmol/L (22-30); Chloride 105 mmol/L (98-107); Estimated CRCL calculation 39 ml/min; Estimated Glomerular Filt Rate > 60; Glucose 91 mg/dL (65-110); Potassium 4.4 mmol/L (3.4-5.0); Sodium 139 mmol/L (137-145)
[2023-06-23 12:08] VITALS: BP 150/58
[2023-06-23] MEDS: HEPARIN SODIUM LOCK FLUSH 500 UNITS/5 ML SYRINGE IV PUSH (12:11)
[2023-06-30 08:49] LABS: Basophils Percent Auto 0.7 % (0.2-1.2); Hematocrit 30.6 % (37.0-47.0); Hemoglobin 9.8 g/dL (12.0-15.0); Immature Granulocyte Absolute 0.01 K/mm3 (0.00-0.031); Immature Granulocyte Percent A 0.7 % (0-0.5); Lymphocytes Absolute Auto 0.52 K/mm3 (0.9-3.2); Lymphocytes Percent Auto 34.7 % (18.3-44.2); Mean Platelet Volume 10.1 fl (7.4-10.4); Monocytes Absolute Auto 0.1 K/mm3 (0.1-0.6); Monocytes Percent Auto 3.3 % (2.6-8.5); Neutrophils Absolute Auto 0.9 K/mm3 (1.3-6.7); Neutrophils Percent Auto 58.6 % (45.5-73.1); Platelet Count Result 100 k/mm3 (150-375); Red Blood Count 3.06 M/mm3 (4.2-5.4); Red Cell Distribution Width 13.8 % (11.5-14.5); White Blood Count 1.5 K/mm3 (4.5-10.0)
[2023-06-30 08:55] LABS: Blood Urea Nitrogen 26 mg/dL (8-26); Carbon Dioxide 23 mmol/L (22-30); Chloride 101 mmol/L (98-109); Estimated CRCL calculation 32 ml/min; Estimated Glomerular Filt Rate 48; Glucose 121 mg/dL (70-105); Ionized Calcium (POC) 1.27 mmol/L (1.11-1.31); Potassium 3.9 mmol/L (3.5-4.9); Sodium 139 mmol/L (138-146)
[2023-06-30 09:04] VITALS: BP 110/52; PULSE 58; TEMP 36.1; O2SAT 98
[2023-06-30 09:11] VITALS: BP 83/53
[2023-06-30] MEDS: SODIUM CHLORIDE 0.9% IV 1,000 ML 500 ML IV CONT (09:24)
[2023-06-30] MEDS: PALONOSETRON HCL 0.25 MG/5 ML VIAL IV PUSH (11:36)
[2023-06-30] MEDS: ATROPINE SULFATE 1 MG/ML VIAL 0.25 MG SUB-Q (11:36)
[2023-06-30 12:41] LABS: Alanine Aminotransferase 49 U/L (6-35); Albumin Level 3.7 g/dL (3.5-5.1); Alkaline Phosphatase 196 U/L (38-126); Anion Gap 8 mmol/L (8-16); Aspartate Amino Transferase 52 U/L (14-36); Bilirubin,Total 0.6 mg/dL (0.2-1.3); Blood Urea Nitrogen 26 mg/dL (7-17); Calcium 8.9 mg/dL (8.4-10.2); Carbon Dioxide 24 mmol/L (22-30); Chloride 104 mmol/L (98-107); Estimated CRCL calculation 35 ml/min; Estimated Glomerular Filt Rate 54; Glucose 119 mg/dL (65-110); Potassium 3.9 mmol/L (3.4-5.0); Sodium 136 mmol/L (137-145)
[2023-06-30] MEDS: HEPARIN SODIUM LOCK FLUSH 500 UNITS/5 ML SYRINGE IV PUSH (13:55)
[2023-06-30 13:56] VITALS: BP 122/52
[2023-07-21 11:22] LABS: Basophils Percent Auto 0.4 % (0.2-1.2); Hematocrit 26.1 % (37.0-47.0); Hemoglobin 8.2 g/dL (12.0-15.0); Immature Granulocyte Absolute 0.54 K/mm3 (0.00-0.031); Immature Granulocyte Percent A 4.9 % (0-0.5); Lymphocytes Absolute Auto 1.09 K/mm3 (0.9-3.2); Lymphocytes Percent Auto 9.8 % (18.3-44.2); Mean Corpuscular HGB Conc 31.4 g/dl (32-36); Mean Corpuscular Hemoglobin 31.8 pg (26-34); Mean Corpuscular Volume 101.2 fl (80-100); Monocytes Absolute Auto 0.7 K/mm3 (0.1-0.6); Monocytes Percent Auto 6.5 % (2.6-8.5); Neutrophils Absolute Auto 8.7 K/mm3 (1.3-6.7); Neutrophils Percent Auto 78.4 % (45.5-73.1); Nucleated Red Blood Cells Perc 0.2 % (0.0-0.2); Platelet Count Result 177 k/mm3 (150-375); Red Blood Count 2.58 M/mm3 (4.2-5.4); Red Cell Distribution Width 16.7 % (11.5-14.5); White Blood Count 11.1 K/mm3 (4.5-10.0)
[2023-07-21 11:28] LABS: Blood Urea Nitrogen 25 mg/dL (8-26); Carbon Dioxide 26 mmol/L (22-30); Chloride 104 mmol/L (98-109); Estimated CRCL calculation 39 ml/min; Estimated Glomerular Filt Rate > 60; Glucose 109 mg/dL (70-105); Ionized Calcium (POC) 1.18 mmol/L (1.11-1.31); Potassium 5.1 mmol/L (3.5-4.9); Sodium 140 mmol/L (138-146)
[2023-07-21 12:58] LABS: Alanine Aminotransferase 14 U/L (6-35); Albumin Level 2.5 g/dL (3.5-5.1); Alkaline Phosphatase 130 U/L (38-126); Anion Gap 5 mmol/L (8-16); Aspartate Amino Transferase 19 U/L (14-36); Bilirubin,Total 0.4 mg/dL (0.2-1.3); Blood Urea Nitrogen 27 mg/dL (7-17); Carbon Dioxide 25 mmol/L (22-30); Chloride 107 mmol/L (98-107); Estimated CRCL calculation 43 ml/min; Estimated Glomerular Filt Rate > 60; Glucose 107 mg/dL (65-110); Potassium 5.1 mmol/L (3.4-5.0); Sodium 137 mmol/L (137-145)
[2023-08-11 08:58] LABS: Basophils Absolute Auto 0.1 K/mm3 (0.0-0.1); Eosinophils Absolute Auto 0.1 K/mm3 (0-0.3); Eosinophils Percent Auto 1.3 % (0-4.4); Hemoglobin 11.6 g/dL (12.0-15.0); Immature Granulocyte Absolute 0.03 K/mm3 (0.00-0.031); Immature Granulocyte Percent A 0.6 % (0-0.5); Lymphocytes Absolute Auto 0.94 K/mm3 (0.9-3.2); Lymphocytes Percent Auto 17.9 % (18.3-44.2); Mean Corpuscular HGB Conc 31.4 g/dl (32-36); Mean Corpuscular Volume 102.2 fl (80-100); Mean Platelet Volume 9.2 fl (7.4-10.4); Monocytes Absolute Auto 0.4 K/mm3 (0.1-0.6); Monocytes Percent Auto 7.2 % (2.6-8.5); Neutrophils Absolute Auto 3.8 K/mm3 (1.3-6.7); Platelet Count Result 194 k/mm3 (150-375); Red Blood Count 3.62 M/mm3 (4.2-5.4); Red Cell Distribution Width 14.5 % (11.5-14.5); White Blood Count 5.3 K/mm3 (4.5-10.0)
[2023-08-11 09:00] LABS: Blood Urea Nitrogen 20 mg/dL (8-26); Carbon Dioxide 23 mmol/L (22-30); Chloride 106 mmol/L (98-109); Estimated CRCL calculation 31 ml/min; Estimated Glomerular Filt Rate 48; Glucose 123 mg/dL (70-105); Ionized Calcium (POC) 1.27 mmol/L (1.11-1.31); Potassium 4.5 mmol/L (3.5-4.9); Sodium 140 mmol/L (138-146)
[2023-08-11 09:04] VITALS: BP 143/60; PULSE 59; TEMP 36.5; O2SAT 100
[2023-08-11] MEDS: PEMBROLIZUMAB 200 MG in SODIUM CHLORIDE 0.9% IV 100 ML 216 MG IVPB (09:31)
[2023-08-11 09:56] LABS: Alanine Aminotransferase 9 U/L (6-35); Albumin Level 3.6 g/dL (3.5-5.1); Alkaline Phosphatase 63 U/L (38-126); Anion Gap 6 mmol/L (8-16); Aspartate Amino Transferase 17 U/L (14-36); Bilirubin,Total 0.4 mg/dL (0.2-1.3); Blood Urea Nitrogen 21 mg/dL (7-17); Calcium 9.3 mg/dL (8.4-10.2); Carbon Dioxide 23 mmol/L (22-30); Chloride 108 mmol/L (98-107); Estimated CRCL calculation 34 ml/min; Estimated Glomerular Filt Rate 54; Glucose 123 mg/dL (65-110); Potassium 4.4 mmol/L (3.4-5.0); Sodium 137 mmol/L (137-145)
[2023-08-11] MEDS: HEPARIN SODIUM LOCK FLUSH 500 UNITS/5 ML SYRINGE IV PUSH (10:18)
[2023-08-27 12:38] LABS: Basophils Percent Auto 0.2 % (0.2-1.2); Eosinophils Absolute Auto 0.1 K/mm3 (0-0.3); Eosinophils Percent Auto 0.5 % (0-4.4); Hematocrit 40.6 % (37.0-47.0); Hemoglobin 13.3 g/dL (12.0-15.0); Immature Granulocyte Absolute 0.08 K/mm3 (0.00-0.031); Immature Granulocyte Percent A 0.9 % (0-0.5); Lymphocytes Absolute Auto 1.17 K/mm3 (0.9-3.2); Lymphocytes Percent Auto 12.8 % (18.3-44.2); Mean Corpuscular HGB Conc 32.8 g/dl (32-36); Mean Corpuscular Hemoglobin 31.7 pg (26-34); Mean Corpuscular Volume 96.9 fl (80-100); Mean Platelet Volume 8.9 fl (7.4-10.4); Monocytes Absolute Auto 0.7 K/mm3 (0.1-0.6); Monocytes Percent Auto 7.2 % (2.6-8.5); Neutrophils Absolute Auto 7.1 K/mm3 (1.3-6.7); Neutrophils Percent Auto 78.4 % (45.5-73.1); Platelet Count Result 216 k/mm3 (150-375); Red Blood Count 4.19 M/mm3 (4.2-5.4); Red Cell Distribution Width 13.1 % (11.5-14.5); White Blood Count 9.1 K/mm3 (4.5-10.0)
[2023-08-27 12:43] LABS: Blood Urea Nitrogen 25 mg/dL (8-26); Carbon Dioxide 19 mmol/L (22-30); Chloride 107 mmol/L (98-109); Estimated CRCL calculation 25 ml/min; Estimated Glomerular Filt Rate 36; Glucose 169 mg/dL (70-105); Ionized Calcium (POC) 1.28 mmol/L (1.11-1.31); Potassium 4.5 mmol/L (3.5-4.9); Sodium 137 mmol/L (138-146)
[2023-08-27 13:00] VITALS: BP 128/68; PULSE 80; TEMP 35.7; O2SAT 97
[2023-08-27] MEDS: SODIUM CHLORIDE 0.9% IV 500 ML IV CONT (13:37)
[2023-08-27 15:04] VITALS: BP 137/62
[2023-08-27 15:17] LABS: Alanine Aminotransferase 11 U/L (6-35); Albumin Level 3.2 g/dL (3.5-5.1); Alkaline Phosphatase 62 U/L (38-126); Anion Gap 8 mmol/L (8-16); Aspartate Amino Transferase 13 U/L (14-36); Bilirubin,Total 0.4 mg/dL (0.2-1.3); Blood Urea Nitrogen 27 mg/dL (7-17); Calcium 9.2 mg/dL (8.4-10.2); Carbon Dioxide 19 mmol/L (22-30); Chloride 109 mmol/L (98-107); Estimated CRCL calculation 29 ml/min; Estimated Glomerular Filt Rate 44; Glucose 165 mg/dL (65-110); Potassium 4.6 mmol/L (3.4-5.0); Sodium 136 mmol/L (137-145)
[2023-09-01 08:38] LABS: Hematocrit 39.2 % (37.0-47.0); Hemoglobin 12.5 g/dL (12.0-15.0); Mean Corpuscular HGB Conc 31.9 g/dl (32-36); Mean Corpuscular Hemoglobin 31.5 pg (26-34); Mean Corpuscular Volume 98.7 fl (80-100); Mean Platelet Volume 8.9 fl (7.4-10.4); Platelet Count Result 279 k/mm3 (150-375); Red Blood Count 3.97 M/mm3 (4.2-5.4); Red Cell Distribution Width 13.6 % (11.5-14.5); White Blood Count 11.5 K/mm3 (4.5-10.0)
[2023-09-01 08:44] LABS: Blood Urea Nitrogen 43 mg/dL (8-26); Carbon Dioxide 19 mmol/L (22-30); Chloride 109 mmol/L (98-109); Estimated CRCL calculation 19 ml/min; Estimated Glomerular Filt Rate 26; Glucose 124 mg/dL (70-105); Ionized Calcium (POC) 1.28 mmol/L (1.11-1.31); Potassium 5.1 mmol/L (3.5-4.9); Sodium 137 mmol/L (138-146)
[2023-09-01 08:45] LABS: Atypical Lymphocytes Present; Band Neutrophils Percent 19 % (0-6); Lymphocytes Absolute Manual 1.26 K/mm3 (1.1-4.5); Metamyelocytes Percent 1 %; Monocytes Absolute Manual 1.61 K/mm3 (0.1-0.90); Monocytes Percent Manual 14 % (3-9); Neutrophils Absolute Manual 8.51 K/mm3 (1.7-7.2); Neutrophils Percent Manual 55 % (46-73); Platelet Estimate Adequate (Adequate); Schistocytes None Seen; Total Cells Counted 100
[2023-09-01 09:24] VITALS: BP 107/61; PULSE 87; O2SAT 96
[2023-09-01] MEDS: SODIUM CHLORIDE 0.9% IV 1,000 ML 500 ML IV CONT (09:32)
[2023-09-01 11:31] VITALS: BP 151/91
[2023-09-01 11:33] LABS: Alanine Aminotransferase 10 U/L (6-35); Albumin Level 2.9 g/dL (3.5-5.1); Alkaline Phosphatase 68 U/L (38-126); Anion Gap 8 mmol/L (8-16); Aspartate Amino Transferase 14 U/L (14-36); Bilirubin,Total 0.3 mg/dL (0.2-1.3); Blood Urea Nitrogen 50 mg/dL (7-17); Calcium 9.1 mg/dL (8.4-10.2); Carbon Dioxide 17 mmol/L (22-30); Chloride 110 mmol/L (98-107); Estimated CRCL calculation 22 ml/min; Estimated Glomerular Filt Rate 31; Glucose 119 mg/dL (65-110); Sodium 135 mmol/L (137-145)
[2023-09-01] MEDS: HEPARIN SODIUM LOCK FLUSH 500 UNITS/5 ML SYRINGE ×2 (11:47)
[2023-09-01 12:20] LABS: Toxigenic C. Diff POSITIVE (NEGATIVE)
--- NOTE | 2023-09-02 07:40 | PC.NURSE ---
Patient was positive for cdiff. Dr office was notified and patient started on antibiotics.
[2023-09-17 10:29] LABS: Basophils Percent Auto 0.3 % (0.2-1.2); Eosinophils Percent Auto 0.3 % (0-4.4); Hematocrit 33.2 % (37.0-47.0); Hemoglobin 10.6 g/dL (12.0-15.0); Immature Granulocyte Absolute 0.04 K/mm3 (0.00-0.031); Immature Granulocyte Percent A 0.6 % (0-0.5); Lymphocytes Absolute Auto 0.83 K/mm3 (0.9-3.2); Lymphocytes Percent Auto 13.3 % (18.3-44.2); Mean Corpuscular HGB Conc 31.9 g/dl (32-36); Mean Corpuscular Hemoglobin 31.1 pg (26-34); Mean Corpuscular Volume 97.4 fl (80-100); Mean Platelet Volume 8.5 fl (7.4-10.4); Monocytes Absolute Auto 0.3 K/mm3 (0.1-0.6); Monocytes Percent Auto 5.1 % (2.6-8.5); Neutrophils Percent Auto 80.4 % (45.5-73.1); Platelet Count Result 295 k/mm3 (150-375); Red Blood Count 3.41 M/mm3 (4.2-5.4); Red Cell Distribution Width 13.9 % (11.5-14.5); White Blood Count 6.2 K/mm3 (4.5-10.0)
[2023-09-17 10:32] LABS: Blood Urea Nitrogen 24 mg/dL (8-26); Carbon Dioxide 23 mmol/L (22-30); Chloride 105 mmol/L (98-109); Estimated CRCL calculation 23 ml/min; Estimated Glomerular Filt Rate 34; Glucose 149 mg/dL (70-105); Ionized Calcium (POC) 1.16 mmol/L (1.11-1.31); Potassium 4.1 mmol/L (3.5-4.9); Sodium 140 mmol/L (138-146)
[2023-09-17 11:35] VITALS: BP 122/55; PULSE 84; TEMP 36.7; O2SAT 99
[2023-09-17 11:45] LABS: Alanine Aminotransferase 11 U/L (6-35); Albumin Level 3.1 g/dL (3.5-5.1); Alkaline Phosphatase 66 U/L (38-126); Anion Gap 5 mmol/L (4-12); Aspartate Amino Transferase 17 U/L (14-36); Bilirubin,Total 0.4 mg/dL (0.2-1.3); Blood Urea Nitrogen 26 mg/dL (7-17); Calcium 8.9 mg/dL (8.4-10.2); Carbon Dioxide 23 mmol/L (22-30); Chloride 109 mmol/L (98-107); Estimated CRCL calculation 27 ml/min; Estimated Glomerular Filt Rate 40; Glucose 150 mg/dL (65-110); Sodium 137 mmol/L (137-145)
[2023-09-17] MEDS: SODIUM CHLORIDE 0.9% IV 500 ML IV CONT (11:52)
[2023-09-17 12:58] VITALS: BP 119/48
[2023-09-17] MEDS: HEPARIN SODIUM LOCK FLUSH 500 UNITS/5 ML SYRINGE IV PUSH (13:01)
[2023-09-24 08:50] LABS: Basophils Percent Auto 0.5 % (0.2-1.2); Eosinophils Absolute Auto 0.1 K/mm3 (0-0.3); Eosinophils Percent Auto 1.1 % (0-4.4); Hematocrit 32.9 % (37.0-47.0); Hemoglobin 10.7 g/dL (12.0-15.0); Immature Granulocyte Absolute 0.04 K/mm3 (0.00-0.031); Immature Granulocyte Percent A 0.5 % (0-0.5); Lymphocytes Absolute Auto 1.06 K/mm3 (0.9-3.2); Lymphocytes Percent Auto 13.4 % (18.3-44.2); Mean Corpuscular HGB Conc 32.5 g/dl (32-36); Mean Corpuscular Hemoglobin 31.3 pg (26-34); Mean Corpuscular Volume 96.2 fl (80-100); Mean Platelet Volume 8.6 fl (7.4-10.4); Monocytes Absolute Auto 0.5 K/mm3 (0.1-0.6); Monocytes Percent Auto 6.4 % (2.6-8.5); Neutrophils Absolute Auto 6.2 K/mm3 (1.3-6.7); Neutrophils Percent Auto 78.1 % (45.5-73.1); Platelet Count Result 306 k/mm3 (150-375); Red Blood Count 3.42 M/mm3 (4.2-5.4); Red Cell Distribution Width 14.7 % (11.5-14.5); White Blood Count 7.9 K/mm3 (4.5-10.0)
[2023-09-24 08:54] VITALS: PULSE 74; TEMP 36.9; O2SAT 98
[2023-09-24 08:54] LABS: Blood Urea Nitrogen 16 mg/dL (8-26); Carbon Dioxide 25 mmol/L (22-30); Chloride 102 mmol/L (98-109); Estimated CRCL calculation 38 ml/min; Estimated Glomerular Filt Rate > 60; Glucose 111 mg/dL (70-105); Ionized Calcium (POC) 1.24 mmol/L (1.11-1.31); Potassium 3.8 mmol/L (3.5-4.9); Sodium 139 mmol/L (138-146)
[2023-09-24 09:00] VITALS: BP 165/86
[2023-09-24] MEDS: PEMBROLIZUMAB 200 MG in SODIUM CHLORIDE 0.9% IV 100 ML 216 MG IVPB (09:21)
[2023-09-24] MEDS: HEPARIN SODIUM LOCK FLUSH 500 UNITS/5 ML SYRINGE IV PUSH (09:55)
[2023-09-24 14:30] LABS: Alanine Aminotransferase 11 U/L (6-35); Albumin Level 3.3 g/dL (3.5-5.1); Alkaline Phosphatase 62 U/L (38-126); Anion Gap 5 mmol/L (4-12); Aspartate Amino Transferase 18 U/L (14-36); Bilirubin,Total 0.3 mg/dL (0.2-1.3); Blood Urea Nitrogen 17 mg/dL (7-17); Calcium 9.1 mg/dL (8.4-10.2); Carbon Dioxide 24 mmol/L (22-30); Chloride 105 mmol/L (98-107); Estimated CRCL calculation 42 ml/min; Estimated Glomerular Filt Rate > 60; Glucose 106 mg/dL (65-110); Potassium 3.9 mmol/L (3.4-5.0); Sodium 134 mmol/L (137-145)
== END 2023-10-06 14:28 ==
LOC: AMCINF 09:00
PROVIDERS: Visit Provider Internal Medicine Hematology & Oncology
DX: Z51.11 Encounter for antineoplastic chemotherapy (principal); C34.90 Malignant neoplasm of unspecified part of unspecified bronchus or lung; I11.0 Hypertensive heart disease with heart failure; I50.32 Chronic diastolic (congestive) heart failure; I48.20 Chronic atrial fibrillation, unspecified; I42.0 Dilated cardiomyopathy; D64.9 Anemia, unspecified; E11.9 Type 2 diabetes mellitus without complications; E78.2 Mixed hyperlipidemia; E22.2 Syndrome of inappropriate secretion of antidiuretic hormone; F41.9 Anxiety disorder, unspecified; F32.A Depression, unspecified
CPT/HCPCS: 36415; 36592; 80047; 80053; 82607; 82728; 82746; 83540; 83550; 83735; 84443; 85025; 86480; 87340; 87493; 96360; 96361; 96367; 96368; 96372; 96375; 96413; 96415; 96417; A9270; J0461; J1100; J1453; J2405; J2469; J7030; J7040; J7050; J7060; J9022; J9045; J9181; J9206; J9271

== ENCOUNTER 2023-09-25 12:28 | Inpatient (IN) | payer MEDICARE, SELFPAY ==
[2023-09-25] VITALS (12 sets, daily range): BP systolic 146–185; BP diastolic 74–101; PULSE 93–101; RESP 16–25; TEMP 36.7–36.9; O2SAT 75–100; BMI 20.2
--- NOTE | ~2023-09-25 | CT_ITS ---
EXAMINATION: CT brain wo con DATE: 09/25/2023 23:14 INDICATION: Altered mental status TECHNIQUE: Computed tomography (CT) of the head was performed without intravenous contrast. The mA wa s adjusted according to patient size. Iterative reconstruction technique was employed. Exam dose: 75 6.67 mGy-cm total exam DLP. COMPARISON: 04/23/2023 CT brain FINDINGS: Right vertebral and bilateral carotid siphon internal carotid artery prominent calcificatio ns are noted. Moderate cerebellar and central and cortical cerebral atrophy. No intracranial mass lesion or hemorrhage or cerebrovascular accident. No midline shift or mass effec t. No subdural or epidural hematoma. There is nearly complete opacification of the right maxillary sinus. The other paranasal sinuses and the mastoid air cells are unremarkable. No fracture or bone destruction of the cranial vault. IMPRESSION: Cerebral atherosclerosis No acute intracranial finding Complete opacification right maxillary sinus, new since 04/23/2023 Reviewed, dictated and finalized at [facility]. Reviewed, dictated and finalized at [facility].
--- NOTE | ~2023-09-25 | CT_ITS ---
EXAMINATION: CT diagnostic chest w con DATE: 09/28/2023 14:46 INDICATION: Right pleural effusion TECHNIQUE: Computed tomography (CT) of the chest was performed with 75 cc Omnipaque 350 intravenous c ontrast. The dose-length product was 175.70 mGy-cm.. Automated exposure control and iterative reconst ruction technique were employed. COMPARISON: CT dated 07/23/2023 FINDINGS: Moderate right and small left pleural effusions. There is right basilar atelectasis. There is mediastinal lymphadenopathy which has increased since prior examination, consistent with progressi on of known lung cancer. There is intrahepatic biliary dilatation. Stable right upper lobe subsolid n odule measuring 2.3 x 1.9 cm. There is a 12 mm pleural-based nodule right mid thorax, image 65. No ev idence for filling defect in the pulmonary arteries to suggest pulmonary embolism. Levoscoliosis of t he thoracic spine. IMPRESSION: 1. Developing right upper lobe nodule right mid thorax laterally at the pleural surface measuring 12 mm. Progression of mediastinal lymphadenopathy. Findings suspicious for progression of known lung can cer. 2: Moderate right and small left pleural effusions. Reviewed, dictated and finalized at location [facility]. IMPRESSION: 1. Developing right upper lobe nodule right mid thorax laterally at the pleural surface measuring 12 mm. Progression of mediastinal lymphadenopathy. Findings suspicious for progression of known lung cancer. 2: Moderate right and small left pleural effusions.
--- NOTE | ~2023-09-25 | US_ITS ---
EXAMINATION: US thoracentesis DATE: 09/29/2023 15:13 INDICATION: pleural effusion TECHNIQUE: The skin was prepped and draped in sterile fashion. 1% lidocaine was used for local anesth esia. Under ultrasound guidance, a 5 Fr catheter with trochar was advanced into the right pleural eff usion. Fluid was aspirated. The catheter was removed, and a dressing was applied. There were no immed iate complications. FINDINGS: Ultrasound images demonstrate a right pleural effusion and the catheter within the fluid. IMPRESSION: 1. Successful ultrasound-guided thoracentesis yielding 800 mL of yellow fluid. Reviewed, dictated and finalized at location [facility].
--- NOTE | ~2023-09-25 | XR_ITS ---
XR chest 2V DATE: 09/25/2023 13:32 INDICATION: Altered mental state. Weakness. Patient fell. TECHNIQUE: AP and lateral views 09/09/2023 COMPARISON: Portable AP chest FINDINGS: Moderate right pleural effusion and right basilar compressive atelectasis. There is slight if any left pleural effusion. The left lung is hyperinflated but clear. Heart size appears within normal limits. Aortic calcification and tortuosity. gambling monitor device is noted in the left anteromedial chest cavity. Right-sided Port-A-Cath catheter with catheter tip overlying superior vena cava. IMPRESSION: Moderately large right pleural effusion with some associated compressive atelectasis at t he right lung base Little interval change since 09/09/2023 Reviewed, dictated and finalized at location [facility]. IMPRESSION: Moderately large right pleural effusion with some associated compre ssive atelectasis at the right lung base Little interval change since 09/09/2023
--- NOTE | ~2023-09-25 | CT_ITS ---
EXAMINATION: CT abdomen pelvis w con DATE: 09/25/2023 23:14 INDICATION: Abdominal pain, diarrhea TECHNIQUE: Computed tomography (CT) of the abdomen and pelvis was performed with 100 CC Omnipaque 350 intravenous contrast. Automated exposure control and iterative reconstruction technique were employe d. Exam dose: 330.02 mGy-cm total exam DLP. COMPARISON: 04/19/2023 CT chest abdomen pelvis FINDINGS: Mild right pleural effusion. There is obstruction of the right middle and lower lobe bronch i with prominent middle and right lower lobe atelectasis. There is prominent adenopathy in the subcar inal area and right hilum. Cardiomegaly no pericardial or left pleural effusion. Multiple hepatic cysts measuring up to approximately 6.5 cm are again noted. There is a new 2 cm soft tissue mass in the posterior inferior aspect of the right hepatic lobe, not present on 04/19/2023, likely due to metastatic disease. Possible additional 2 cm metastasis at the i nferomedial aspect of the right hepatic lobe. There is intrahepatic and extrahepatic bile duct dilatation, common bile duct measures measures 10 mm diameter. Consider MRCP for further evaluation. The gallbladder is distended. No gallbladder wall thickening is noted. No pancreatic mass lesion or calcification is noted. Normal splenic size. Normal morphology of the adrenal glands. 8 mm probable lower pole left renal cyst. No urinary tract calculus or hydroureteronephrosis. There is extensive calcification of the abdominal aorta and calcification of the superior mesenteric and renal arteries. Prominent calcification of the iliac arteries. No intraperitoneal or retroperiton eal or pelvic lymphadenopathy or ascites is noted. There is thickening of the wall of the rectum and colon suggesting proctocolitis The urinary bladder is unremarkable. Status post hysterectomy. No suspicious osteolytic or osteoblastic lesions are noted. IMPRESSION: New hepatic metastasis since 04/19/2023 Thickening along the rectum and colon consistent with proctocolitis Middle and right lower lobe atelectasis due to bronchial occlusion; right hilar and subcarinal lympha denopathy Cardiomegaly Right pleural effusion Hepatic cysts, left renal cyst Reviewed, dictated and finalized at [facility]. Reviewed, dictated and finalized at location [facility]. IMPRESSION: New hepatic metastasis since 04/19/2023 Thickening along the rectum and colon consistent with proctocolitis Middle and right lower lobe atelectasis due to bronchial occlusion; right hilar and subcarinal lymphadenopathy Cardiomegaly Right pleural effusion Hepatic cysts, left renal cyst
--- NOTE | ~2023-09-25 | XR_ITS ---
EXAMINATION: [id number]_CR DATE: 09/29/2023 14:48 INDICATION: Right pleural effusion status post thoracentesis. TECHNIQUE: A single frontal view of the chest was obtained. COMPARISON: Chest 2 views 09/25/2023 FINDINGS: There is a small right pleural effusion. There is collapse of right middle lobe and right l ower lobe. No pneumothorax. The heart size is normal. An implant overlies the heart. There is a right subclavian port with tip in superior vena cava. IMPRESSION: 1. Small right pleural effusion with interval improvement. 2. Persistent collapse of right lower lobe and right middle lobe. Reviewed, dictated and finalized at location [facility].
--- NOTE | 2023-09-25 12:57 | ECG_ITS ---
Measurements Intervals [place] Rate: 98 P: -35 PA: 178 QRS: 74 QRSD: 83 T: 83 QT: 370 Avg RR: 611 QTc: 425 QTcB: 473 QTcF: 436 Interpretive Statements SINUS RHYTHM NORMAL ECG SEE SCANNED COPY FOR SIGNATURE MTDD
[2023-09-25] MEDS: SODIUM CHLORIDE 0.9% IV 1,000 ML 999 ML IV CONT (13:00)
[2023-09-25 13:02] LABS: Basophils Percent Auto 0.2 % (0.2-1.2); Hematocrit 34.9 % (37.0-47.0); Hemoglobin 11.4 g/dL (12.0-15.0); Immature Granulocyte Absolute 0.14 K/mm3 (0.00-0.031); Immature Granulocyte Percent A 0.7 % (0-0.5); Lymphocytes Absolute Auto 0.41 K/mm3 (0.9-3.2); Lymphocytes Percent Auto 1.9 % (18.3-44.2); Mean Corpuscular HGB Conc 32.7 g/dl (32-36); Mean Corpuscular Hemoglobin 31.7 pg (26-34); Mean Corpuscular Volume 96.9 fl (80-100); Mean Platelet Volume 8.9 fl (7.4-10.4); Monocytes Absolute Auto 0.7 K/mm3 (0.1-0.6); Neutrophils Absolute Auto 20.3 K/mm3 (1.3-6.7); Neutrophils Percent Auto 94.2 % (45.5-73.1); Platelet Count Result 293 k/mm3 (150-375); Red Cell Distribution Width 15.1 % (11.5-14.5); White Blood Count 21.5 K/mm3 (4.5-10.0)
[2023-09-25 13:07] LABS: Appearance Urine Clear (Clear); Bilirubin Urine Negative (Negative); Blood Urine Negative (Negative); Color Urine Yellow (Yellow); Glucose Urine UA Negative (Negative); Ketones Urine Negative (Negative); Leukocyte Esterase Ur Negative LEU/UL (Negative); Nitrate Urine Negative (Negative); Protein Urine Negative (Negative); Urobilinogen Urine 0.2 mg/dL (<2.0); pH Urine 7.5 (5.0-9.0)
[2023-09-25 13:12] LABS: Alanine Aminotransferase 12 U/L (6-35); Albumin Level 3.4 g/dL (3.5-5.1); Alkaline Phosphatase 71 U/L (38-126); Anion Gap 7 mmol/L (4-12); Aspartate Amino Transferase 18 U/L (14-36); Bilirubin,Total 0.6 mg/dL (0.2-1.3); Blood Urea Nitrogen 19 mg/dL (7-17); Calcium 9.4 mg/dL (8.4-10.2); Carbon Dioxide 23 mmol/L (22-30); Chloride 106 mmol/L (98-107); Estimated CRCL calculation 46 ml/min; Estimated Glomerular Filt Rate > 60; Glucose 120 mg/dL (65-110); Lactic Acid Reflex 1.4 mmol/L (0.7-2.0); Potassium 3.6 mmol/L (3.4-5.0); Sodium 136 mmol/L (137-145)
[2023-09-25 13:18] LABS: Add Urine Microscopic? NO
--- NOTE | 2023-09-25 13:35 | ED.WEAKNESS ---
HPI - Weakness General Chief complaint: Weakness Stated complaint: weakness Time Seen by Provider: 09/25/23 12:30 History of Present Illness HPI Narrative: Patient is a 78-year-old female who presents ER with altered mental status. Patient has history of lung cancer and is getting immunotherapy. Last treatment yesterday. Patient has known C diff infection. Patient found by family today acutely altered. She is orient x2 is typically orient times warm. She has no reports of pain. Patient recently hospitalized due to dehydration and blood in stool. Patient is anticoagulated on Eliquis. Patient finished tested and was switched to vancomycin. She took her last dose vancomycin approximately 3 days ago. No reports of diarrhea until today. Related Data Home Medications Medication Instructions Recorded Confirmed cholecalciferol (vitamin D3) 50 125 mcg PO DAILY 09/24/22 09/25/23 mcg (2,000 unit) tablet fluticasone propionate 50 2 spray intranasal DAILY PRN 09/24/22 09/25/23 mcg/actuation nasal Allergy Symptoms spray,suspension ferrous sulfate 325 mg (65 mg 325 mg PO BID 10/13/22 09/25/23 iron) tablet (Iron (ferrous sulfate)) lorazepam 1 mg tablet 0.5 mg PO DAILY PRN Anxiety 10/13/22 09/25/23 vitamin B complex (B 1 tablet PO HS 10/13/22 09/25/23 Complex-Vitamin B12 tablet) amiodarone 400 mg tablet 200 mg PO HS 03/23/23 09/25/23 cetirizine 10 mg capsule (Zyrtec) 10 mg PO DAILY PRN Allergy Symptoms 06/23/23 09/25/23 guaifenesin 600 mg tablet, 600 mg PO HS PRN Congestion 06/23/23 09/25/23 extended release 12 hr (Mucinex) benzonatate 100 mg capsule 200 mg PO TID PRN Cough 09/09/23 09/25/23 metoprolol succinate 25 mg 25 mg PO BID 09/25/23 09/25/23 tablet,extended release 24 hr Allergies Allergy/AdvReac Type Severity Reaction Status Date / Time loratadine Allergy Unknown Hives Verified 09/24/23 09:17 Review of Systems Review of Systems: ROS unobtainable: Yes unobtainable due to mental status PMFSH Past Medical History Medical History (Updated 09/25/23 @ 21:53 by Cristy Trevino PA-C) C. difficile diarrhea Chronic anticoagulation Depression with anxiety Dilated cardiomyopathy Essential hypertension Gout Hypothyroidism Mixed hyperlipidemia Paroxysmal atrial fibrillation Small cell carcinoma of lung Type 2 diabetes mellitus Surgical History Surgical History (Updated 09/25/23 @ 21:48 by Cristy Trevino PA-C) History of hysterectomy for benign disease History of permanent cardiac pacemaker placement Family History Family History Mother Chronic obstructive pulmonary disease Father Alcoholism Social History Social History (Updated 09/25/23 @ 21:49 by Cristy Trevino PA-C) Social History: Healthcare power of corporate attorney: Holly Espana, daughter. Code status: Full code. Smoking packs per day: 2 Smoking cigarettes per day: 40.0 Years smoked: 20 Smoking pack-years: 40.00 Smoking status: Former smoker Second hand tobacco smoke exposure: No Alcohol intake: never Substance use: never Substance use type: does not use Do You Feel Safe in your Home?: Yes Lack of Transportation: No Lack of Food: Never True Current Housing: I Have Housing Concerned About Future Housing: No Difficulty Paying Gas/Electric Bills: No Difficulty Paying for Meds: No Currently Unemployed: No Education: Bachelor's Degree Difficulty w/ Childcare or Family Care: No Living arrangements: alone Additional living arrangements comments: The patient lives alone in [place]. She has 3 daughters who all live within about a half a mi of her. 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 Spiritual care concerns: No Exam Narrative: GENERAL: Chronically ill-appearing, well-nourished, and in no acute distress. HEAD: Normocephalic, atraumatic. EYES: PERRL and EOMI.
[2023-09-25 13:36] LABS: INR 1.2; Prothrombin Time 15.9 Seconds (11.1-14.7)
--- NOTE | 2023-09-25 14:51 | PC.NURSE ---
Blood cultures x2 collected from [facility].
[2023-09-25] MEDS: CEFEPIME 2 GM/NS 50 ML 2 GM/50 ML BAG IVPB (15:03)
--- NOTE | 2023-09-25 15:33 | PC.NURSE ---
Keerthi care given, noted small open area to coccyx
--- NOTE | 2023-09-25 16:05 | ADMGEN ---
This patient, Jessica Waldron, was admitted to Medical Room 255-01. Patient/family oriented to hospital policies and general routines including ID bracelet, bed and alarms, visiting hours, pain management, procedures, bathroom and other care routines, personal items, smoking policy, room service/diet, and visiting hours. Information on how to activate the Rapid Response Team has been discussed. Patient/Family are encouraged to report perceived risks to care and to ask questions if they do not understand what they are told or what they should do.
[2023-09-25 16:11] LABS: MRSA (PCR) NOT DETECTED (NOT DETECTE)
[2023-09-25] MEDS: VANCOMYCIN 1,500 MG/NS 500 ML 1,500 MG/500 ML BAG 250 MG IVPB (16:49)
[2023-09-25] MEDS: SODIUM CHLORIDE 0.9% IV 1,000 ML 125 ML IV CONT (16:49)
--- NOTE | 2023-09-25 18:22 | PM.IMHP ---
H&P: HPI History of Present Illness Date/Time: 09/25/23 19:00 Chief Complaint: Weakness. Narrative: This is a 78-year-old female with small cell carcinoma of the lung currently on Keytruda with last infusion being about 1 week ago, recent c. diff diarrhea, paroxysmal atrial fibrillation, dilated cardiomyopathy, hypertension, hyperlipidemia, type 2 diabetes mellitus, and anxiety who presented to the emergency department via EMS from home for evaluation of weakness. She is not the greatest historian and thus a majority the following is obtained via a review of her EMR as well as information obtained from her daughter who was at bedside, with the patient's permission. She is known to the hospitalist service from a recent admission with C diff colitis, discharged home on 09/12/2023. She finished a prescribed course of Dificid and a 7 day course of p.o. vancomycin within the last several days. Her diarrhea seemed to improve however in the last 24 hour she has had recurrent diarrhea of which she has been incontinent. Sometime after sunrise she got up to use the bathroom but she was very weak and fell onto the floor before she could make it to the toilet. She was unable to get herself up to the toilet or to call for help and she lay on the floor for a couple of hours before her daughters came to check on her after she did not answer her phone. She d denies loss of consciousness and she denies injury in the fall. At the time evaluation she complains of generalized weakness, malaise, and mild abdominal discomfort. She seems confused on my exam and daughter reports that this is not necessarily unusual for her and seems to be worse with underlying infection. She denies fever, vertigo, visual changes, facial droop, difficulty speaking and swallowing, focal weakness, paresthesias, chest pain, shortness of breath, cough, cold and flu symptoms, and vomiting. In the ED: She was afebrile on arrival with blood pressures in the 140s to 170s systolic. Labs were significant for a WBC count of 21.5, hemoglobin 11.4, sodium 136, BUN 19, lactic acid 1.4. Urine was unremarkable. Chest x-ray showed moderately large right pleural effusion with some associated compressive atelectasis with little interval change since radiograph obtained 09/09/2023. She was given a dose of cefepime and vancomycin in the ED and is being admitted in this setting for further treatment and evaluation. Review of Systems Review of Systems: Twelve systems were reviewed and are negative except for as per HPI. [facility] [place] Past Medical History Medical History (Updated 09/25/23 @ 21:53 by Cristy Trevino PA-C) C. difficile diarrhea Chronic anticoagulation Depression with anxiety Dilated cardiomyopathy Essential hypertension Gout Hypothyroidism Mixed hyperlipidemia Paroxysmal atrial fibrillation Small cell carcinoma of lung Type 2 diabetes mellitus Surgical History Surgical History (Updated 09/25/23 @ 21:48 by Cristy Trevino PA-C) History of hysterectomy for benign disease History of permanent cardiac pacemaker placement Family History Family History Mother Chronic obstructive pulmonary disease Father Alcoholism Social History Social History (Updated 09/25/23 @ 21:49 by Cristy Trevino PA-C) Social History: [employer] worker: Holly Espana, daughter. Code status: Full code. Smoking packs per day: 2 Smoking cigarettes per day: 40.0 Years smoked: 20 Smoking pack-years: 40.00 Smoking status: Former smoker Second hand tobacco smoke exposure: No Alcohol intake: never Substance use: never Substance use type: does not use Do You Feel Safe in your Home?: Yes Lack of Transportation: No Lack of Food: Never True Current Housing: I Have Housing Concerned About Future Housing: No Difficulty Paying Gas/Electric Bills: No Difficulty Paying for Meds: No Currently Unemployed: No E
--- NOTE | 2023-09-25 22:34 | PC.NURSE ---
Surgical note from 10/02/22 states smart port placed. On tubing, 5ml/sec injection rate. [place] from CT scan notified.
[2023-09-25] MEDS: VITAMIN B COMPLEX CAPSULE 1 CAP PO (23:46)
[2023-09-25] MEDS: METOPROLOL SUCCINATE EXT REL 25 MG TABCR PO (23:46)
[2023-09-25] MEDS: AMIODARONE HCL 200 MG TABLET PO (23:47)
[2023-09-25] MEDS: ATORVASTATIN 20 MG TABLET PO (23:48)
[2023-09-26] VITALS (9 sets, daily range): BP systolic 139–159; BP diastolic 61–74; PULSE 85–99; RESP 16; TEMP 36.4–36.6; O2SAT 98–100
--- NOTE | 2023-09-26 00:47 | PC.NURSE ---
Pt bladder scanned per Shanda, 806 ml. Texted provider.
[2023-09-26 01:25] LABS: Toxigenic C. Diff POSITIVE (NEGATIVE)
[2023-09-26] MEDS: FIDAXOMICIN 200 MG TABLET PO ×3 (03:36→20:23)
[2023-09-26] MEDS: SODIUM CHLORIDE 0.9% IV 1,000 ML 125 ML IV CONT (05:40)
[2023-09-26] MEDS: LEVOTHYROXINE SODIUM 50 MCG TABLET PO (05:40)
[2023-09-26 05:58] LABS: Basophils Absolute Auto 0.1 K/mm3 (0.0-0.1); Basophils Percent Auto 0.3 % (0.2-1.2); Eosinophils Percent Auto 0.2 % (0-4.4); Hematocrit 31.3 % (37.0-47.0); Immature Granulocyte Absolute 0.06 K/mm3 (0.00-0.031); Immature Granulocyte Percent A 0.4 % (0-0.5); Lymphocytes Absolute Auto 0.39 K/mm3 (0.9-3.2); Lymphocytes Percent Auto 2.3 % (18.3-44.2); Mean Corpuscular HGB Conc 31.9 g/dl (32-36); Mean Corpuscular Hemoglobin 31.2 pg (26-34); Mean Corpuscular Volume 97.5 fl (80-100); Mean Platelet Volume 9.2 fl (7.4-10.4); Monocytes Absolute Auto 0.5 K/mm3 (0.1-0.6); Neutrophils Absolute Auto 15.7 K/mm3 (1.3-6.7); Neutrophils Percent Auto 93.8 % (45.5-73.1); Platelet Count Result 213 k/mm3 (150-375); Red Blood Count 3.21 M/mm3 (4.2-5.4); Red Cell Distribution Width 15.5 % (11.5-14.5); White Blood Count 16.8 K/mm3 (4.5-10.0)
[2023-09-26 06:19] LABS: Anion Gap 8 mmol/L (4-12); Blood Urea Nitrogen 14 mg/dL (7-17); Calcium 8.6 mg/dL (8.4-10.2); Carbon Dioxide 19 mmol/L (22-30); Chloride 107 mmol/L (98-107); Estimated CRCL calculation 46 ml/min; Estimated Glomerular Filt Rate > 60; Glucose 110 mg/dL (65-110); Magnesium 1.4 mg/dL (1.6-2.3); Potassium 3.1 mmol/L (3.4-5.0); Sodium 134 mmol/L (137-145)
[2023-09-26 07:09] LABS: Vitamin B12 > 1000.0 pg/mL (239-931)
[2023-09-26 08:13] LABS: Free T4 Free Thyroxine Reflex 1.24 ng/dL (0.78-2.19)
[2023-09-26] MEDS: FERROUS SULFATE 325 MG TABLET DR PO ×2 (08:35→17:19)
[2023-09-26] MEDS: SERTRALINE HCL 50 MG TABLET PO (08:35)
[2023-09-26] MEDS: METOPROLOL SUCCINATE EXT REL 25 MG TABCR PO ×2 (08:35→20:22)
[2023-09-26] MEDS: CHOLECALCIFEROL 1,000 UNITS TABLET 5000 UNITS PO (08:35)
[2023-09-26] MEDS: PANTOPRAZOLE 40 MG TABLET PO (08:35)
[2023-09-26 08:46] LABS: Glucose Point of Care 100 mg/dl (65-105)
[2023-09-26 08:53] LABS: Total Triiodothyronine (T3) 0.51 NG/ML (0.97-1.69)
--- NOTE | 2023-09-26 09:35 | PM.IMPN ---
Progress Note: A&P Assessment and Plan (1) C. difficile diarrhea: Code(s): A04.72 - Enterocolitis due to Clostridium difficile, not specified as recurrent Status: Acute Assessment and Plan: Previously admitted to the hospital for C dif and discharged home on 09/12/23 on po vancomycin. Per daughter her diarrhea symptom improved after completing her antibiotic course, however yesterday she developed severe diarrhea. She states that she had 8-9 episodes of diarrhea causing her to be incontinent. - CT abdomen/pelvis: New hepatic metastasis since 04/19/23. Thickening along the rectum and colon consistent with proctocolitis Middle and right lower lobe atelectasis due to bronchial occlusion; right hilar and subcarinal lymphadenopathy. Cardiomegaly. Right pleural effusion. Hepatic cysts, left renal cyst - IV fluids - Dificid started 09/25 (2) Confusion: Code(s): R41.0 - Disorientation, unspecified Status: Acute Assessment and Plan: Per daughter confusion is slightly worse than baseline. Likely related to infection. - Head CT unremarkable. (3) Pleural effusion: Code(s): J90 - Pleural effusion, not elsewhere classified Status: Acute Assessment and Plan: Chest XR revealed a moderately large right pleural effusion with some associated compressive atelectasis at the right lung base with little interval change since 09/09/2023. Due to the pleural effusion being stable likely not of infectious origin and more related to patients SCLC. Per daughter patient has had effusion drained twice with most recent being Apr 2023. Pleural effusion was transudative at that time. Will continue to hold antibiotics. - Consider thoracentesis due to return of O2 requirement. - Continue to monitor ? (4) Hypoxia: Code(s): R09.02 - Hypoxemia Status: Acute Assessment and Plan: Likely related to chronic right pleural effusion and SCLC. Per daughter patient previously had home O2 supplementation. - SpO2: 88% on RA started on 3L NC - Oxygen supplementation: 3L NC - Continue to wean oxygen as tolerated for SpO2 > 92 - Suspected cause: chronic right pleural effusion and SCLC - Chest XR: Moderately large right pleural effusion with some associated compressive atelectasis at the right lung base Little interval change since 09/09/2023? (5) Essential hypertension: Code(s): I10 - Essential (primary) hypertension Status: Acute Assessment and Plan: Well controlled on home medication. - Metoprolol 25 mg BID (6) Type 2 diabetes mellitus: Code(s): E11.9 - Type 2 diabetes mellitus without complications Status: Acute Assessment and Plan: - hypoglycemia protocol - POC blood glucose ACHS - home medication - metformin. Held for CT - correct regimen ordered - low dose TIDWM and HS - A1C 04/29/23: 5.5 (7) Paroxysmal atrial fibrillation: Code(s): I48.0 - Paroxysmal atrial fibrillation Status: Acute Assessment and Plan: Well controlled on current home medications. - Current home medication: amiodarone 200 mcg daily, metoprolol 25 mg BID - Anticoagulation: eliquis [address] unremarkable. (8) Small cell carcinoma of lung: Code(s): C34.90 - Malignant neoplasm of unspecified part of unspecified bronchus or lung Status: Acute Assessment and Plan: Currently on Keytruda. Last infusion 1 week ago. Time Spent With Patient Time with patient: 25 - 35 minutes Subjective Date/time seen: 09/26/23 09:35 Interval history: 78-year-old female with small cell carcinoma of the lung currently on Keytruda with last infusion being about 1 week ago, recent c. diff diarrhea, paroxysmal atrial fibrillation, dilated cardiomyopathy, hypertension, hyperlipidemia, type 2 diabetes mellitus, and anxiety who presented to the hospital via EMS from home for evaluation of weakness.? Patient is pleasant lying in bed with daughterSierra at bedside. Nisha
[2023-09-26] MEDS: APIXABAN 5 MG TABLET PO ×2 (12:32→20:22)
[2023-09-26] MEDS: SODIUM CHLORIDE 0.9% IV 1,000 ML 75 ML IV CONT (14:39)
[2023-09-26 17:12] LABS: Glucose Point of Care 165 mg/dl (65-105)
[2023-09-26 17:21] LABS: Glucose Point of Care 130 mg/dl (65-105)
[2023-09-26] MEDS: AMIODARONE HCL 200 MG TABLET PO (20:23)
[2023-09-26] MEDS: VITAMIN B COMPLEX CAPSULE 1 CAP PO (20:23)
[2023-09-26] MEDS: ATORVASTATIN 20 MG TABLET PO (20:23)
[2023-09-26 21:04] LABS: Glucose Point of Care 108 mg/dl (65-105)
[2023-09-27 04:32] VITALS: BP 154/77; PULSE 80; RESP 17; TEMP 36.9; O2SAT 97
[2023-09-27] MEDS: LEVOTHYROXINE SODIUM 50 MCG TABLET PO (06:08)
[2023-09-27] MEDS: SODIUM CHLORIDE 0.9% IV 1,000 ML 75 ML IV CONT ×2 (06:08→21:45)
--- NOTE | 2023-09-27 07:42 | PM.IMPN ---
Progress Note: A&P Assessment and Plan (1) C. difficile diarrhea: Code(s): A04.72 - Enterocolitis due to Clostridium difficile, not specified as recurrent Status: Acute Assessment and Plan: Previously admitted to the hospital for C dif and discharged home on 09/12/23 on po vancomycin. Per daughter her diarrhea symptom improved after completing her antibiotic course, however yesterday she developed severe diarrhea. She states that she had 8-9 episodes of diarrhea causing her to be incontinent. - CT abdomen/pelvis: New hepatic metastasis since 04/19/23. Thickening along the rectum and colon consistent with proctocolitis Middle and right lower lobe atelectasis due to bronchial occlusion; right hilar and subcarinal lymphadenopathy. Cardiomegaly. Right pleural effusion. Hepatic cysts, left renal cyst - IV fluids - Dificid started 09/25 (2) Confusion: Code(s): R41.0 - Disorientation, unspecified Status: Acute Assessment and Plan: Per daughter confusion is slightly worse than baseline. Likely related to infection. - Head CT unremarkable. (3) Pleural effusion: Code(s): J90 - Pleural effusion, not elsewhere classified Status: Acute Assessment and Plan: Chest XR revealed a moderately large right pleural effusion with some associated compressive atelectasis at the right lung base with little interval change since 09/09/2023. Due to the pleural effusion being stable likely not of infectious origin and more related to patients SCLC. Per daughter patient has had effusion drained twice with most recent being Apr 2023. Pleural effusion was transudative at that time. Will continue to hold antibiotics. - Consider thoracentesis due to return of O2 requirement. - Continue to monitor ? (4) Hypoxia: Code(s): R09.02 - Hypoxemia Status: Acute Assessment and Plan: Likely related to chronic right pleural effusion and SCLC. Per daughter patient previously had home O2 supplementation. - SpO2: 88% on RA started on 3L NC. - Oxygen supplementation: 3L NC - Continue to wean oxygen as tolerated for SpO2 > 92 - Suspected cause: chronic right pleural effusion and SCLC - Chest XR: Moderately large right pleural effusion with some associated compressive atelectasis at the right lung base Little interval change since 09/09/2023? Resolved. Patient SpO2 stabel on RA at this time. (5) Essential hypertension: Code(s): I10 - Essential (primary) hypertension Status: Acute Assessment and Plan: Well controlled on home medication. - Metoprolol 25 mg BID (6) Type 2 diabetes mellitus: Code(s): E11.9 - Type 2 diabetes mellitus without complications Status: Acute Assessment and Plan: - hypoglycemia protocol - POC blood glucose ACHS - home medication - metformin. Held for CT - correct regimen ordered - low dose TIDWM and HS - A1C 04/29/23: 5.5 (7) Paroxysmal atrial fibrillation: Code(s): I48.0 - Paroxysmal atrial fibrillation Status: Acute Assessment and Plan: Well controlled on current home medications. - Current home medication: amiodarone 200 mcg daily, metoprolol 25 mg BID - Anticoagulation: eliquis [address] unremarkable. (8) Small cell carcinoma of lung: Code(s): C34.90 - Malignant neoplasm of unspecified part of unspecified bronchus or lung Status: Acute Assessment and Plan: Currently on Keytruda. Last infusion 1 week ago. Spoke with Dr. Max and if plan to continue treatment will follow up outpatient. Time Spent With Patient Time with patient: 25 - 35 minutes Subjective Date/time seen: 09/27/23 07:42 Interval history: 78-year-old female with small cell carcinoma of the lung currently on Keytruda with last infusion being about 1 week ago, recent c. diff diarrhea, paroxysmal atrial fibrillation, dilated cardiomyopathy, hypertension, hyperlipidemia, type 2 diabetes mellitus, and anxiety who presen
[2023-09-27 08:25] LABS: Glucose Point of Care 112 mg/dl (65-105)
[2023-09-27 08:29] LABS: Basophils Percent Auto 0.5 % (0.2-1.2); Eosinophils Absolute Auto 0.1 K/mm3 (0-0.3); Eosinophils Percent Auto 1.8 % (0-4.4); Hematocrit 31.8 % (37.0-47.0); Hemoglobin 9.8 g/dL (12.0-15.0); Immature Granulocyte Absolute 0.03 K/mm3 (0.00-0.031); Immature Granulocyte Percent A 0.4 % (0-0.5); Lymphocytes Absolute Auto 0.67 K/mm3 (0.9-3.2); Lymphocytes Percent Auto 9.2 % (18.3-44.2); Mean Corpuscular HGB Conc 30.8 g/dl (32-36); Mean Corpuscular Hemoglobin 31.2 pg (26-34); Mean Corpuscular Volume 101.3 fl (80-100); Mean Platelet Volume 9.1 fl (7.4-10.4); Monocytes Absolute Auto 0.4 K/mm3 (0.1-0.6); Monocytes Percent Auto 4.8 % (2.6-8.5); Neutrophils Absolute Auto 6.1 K/mm3 (1.3-6.7); Neutrophils Percent Auto 83.3 % (45.5-73.1); Platelet Count Result 203 k/mm3 (150-375); Red Blood Count 3.14 M/mm3 (4.2-5.4); Red Cell Distribution Width 15.7 % (11.5-14.5); White Blood Count 7.3 K/mm3 (4.5-10.0)
[2023-09-27 09:00] LABS: Anion Gap 4 mmol/L (4-12); Blood Urea Nitrogen 14 mg/dL (7-17); Calcium 8.4 mg/dL (8.4-10.2); Carbon Dioxide 18 mmol/L (22-30); Chloride 111 mmol/L (98-107); Estimated CRCL calculation 46 ml/min; Estimated Glomerular Filt Rate > 60; Glucose 100 mg/dL (65-110); Potassium 2.8 mmol/L (3.4-5.0); Sodium 133 mmol/L (137-145)
[2023-09-27] MEDS: FERROUS SULFATE 325 MG TABLET DR PO ×2 (09:19→17:22)
[2023-09-27] MEDS: CHOLECALCIFEROL 1,000 UNITS TABLET 5000 UNITS PO (09:19)
[2023-09-27] MEDS: SERTRALINE HCL 50 MG TABLET PO (09:19)
[2023-09-27] MEDS: APIXABAN 5 MG TABLET PO ×2 (09:19→21:41)
[2023-09-27] MEDS: METOPROLOL SUCCINATE EXT REL 25 MG TABCR PO ×2 (09:19→21:41)
[2023-09-27] MEDS: PANTOPRAZOLE 40 MG TABLET PO (09:19)
[2023-09-27] MEDS: POTASSIUM CHLORIDE INJ 40 MEQ in SODIUM CHLORIDE 0.9% IV 500 ML 130 MEQ IVPB (09:19)
[2023-09-27] MEDS: POTASSIUM CHLORIDE 20 MEQ ER TABLET 40 MEQ PO (09:19)
[2023-09-27] MEDS: FIDAXOMICIN 200 MG TABLET PO ×2 (09:20→21:41)
[2023-09-27 10:09] LABS: Magnesium 1.6 mg/dL (1.6-2.3)
[2023-09-27 12:15] LABS: Glucose Point of Care 89 mg/dl (65-105)
[2023-09-27 12:43] VITALS: BMI 20.1
[2023-09-27 14:00] VITALS: BP 160/72; PULSE 86; RESP 14; TEMP 36.6; O2SAT 96
[2023-09-27 17:21] LABS: Glucose Point of Care 115 mg/dl (65-105)
[2023-09-27 17:56] LABS: Potassium 3.7 mmol/L (3.4-5.0)
[2023-09-27 20:10] VITALS: BP 169/87; PULSE 87; RESP 16; TEMP 36.5; O2SAT 97
[2023-09-27 21:19] LABS: Glucose Point of Care 130 mg/dl (65-105)
[2023-09-27 21:40] VITALS: PULSE 80
[2023-09-27] MEDS: ATORVASTATIN 20 MG TABLET PO (21:40)
[2023-09-27] MEDS: VITAMIN B COMPLEX CAPSULE 1 CAP PO (21:40)
[2023-09-27] MEDS: AMIODARONE HCL 200 MG TABLET PO (21:40)
[2023-09-27 21:41] VITALS: PULSE 80
[2023-09-28] VITALS (10 sets, daily range): BP systolic 154–197; BP diastolic 80–101; PULSE 73–97; RESP 14–18; TEMP 36.4–37; O2SAT 97–99
[2023-09-28 05:21] LABS: Basophils Percent Auto 0.5 % (0.2-1.2); Eosinophils Percent Auto 0.5 % (0-4.4); Hematocrit 30.9 % (37.0-47.0); Hemoglobin 9.8 g/dL (12.0-15.0); Immature Granulocyte Absolute 0.03 K/mm3 (0.00-0.031); Immature Granulocyte Percent A 0.5 % (0-0.5); Lymphocytes Percent Auto 13.1 % (18.3-44.2); Mean Corpuscular HGB Conc 31.7 g/dl (32-36); Mean Corpuscular Hemoglobin 30.9 pg (26-34); Mean Corpuscular Volume 97.5 fl (80-100); Mean Platelet Volume 9.1 fl (7.4-10.4); Monocytes Absolute Auto 0.3 K/mm3 (0.1-0.6); Monocytes Percent Auto 5.6 % (2.6-8.5); Neutrophils Absolute Auto 4.9 K/mm3 (1.3-6.7); Neutrophils Percent Auto 79.8 % (45.5-73.1); Platelet Count Result 212 k/mm3 (150-375); Red Blood Count 3.17 M/mm3 (4.2-5.4); Red Cell Distribution Width 15.5 % (11.5-14.5); White Blood Count 6.1 K/mm3 (4.5-10.0)
[2023-09-28] MEDS: ACETAMINOPHEN 325 MG TABLET 650 MG PO (05:22)
[2023-09-28] MEDS: LEVOTHYROXINE SODIUM 50 MCG TABLET PO (05:23)
[2023-09-28 05:34] LABS: Anion Gap 3 mmol/L (4-12); Blood Urea Nitrogen 11 mg/dL (7-17); Calcium 8.4 mg/dL (8.4-10.2); Carbon Dioxide 20 mmol/L (22-30); Chloride 111 mmol/L (98-107); Estimated CRCL calculation 52 ml/min; Estimated Glomerular Filt Rate > 60; Glucose 117 mg/dL (65-110); Potassium 3.1 mmol/L (3.4-5.0); Sodium 134 mmol/L (137-145)
--- NOTE | 2023-09-28 07:01 | PM.IMPN ---
Progress Note: A&P Assessment and Plan (1) C. difficile diarrhea: Code(s): A04.72 - Enterocolitis due to Clostridium difficile, not specified as recurrent Status: Acute Assessment and Plan: Previously admitted to the hospital for C dif and discharged home on 09/12/23 on po vancomycin. Per daughter her diarrhea symptom improved after completing her antibiotic course, however she later developed severe diarrhea. She states that she had 8-9 episodes of diarrhea causing her to be incontinent prior to admission. She continues to have several episodes of diarrhea, but denies associated abdominal pain. She is tolerating her current diet well and was noted to eat more today than yesterday. - CT abdomen/pelvis: New hepatic metastasis since 04/19/23. Thickening along the rectum and colon consistent with proctocolitis Middle and right lower lobe atelectasis due to bronchial occlusion; right hilar and subcarinal lymphadenopathy. Cardiomegaly. Right pleural effusion. Hepatic cysts, left renal cyst - IV fluids - Dificid started 09/25 (2) Confusion: Code(s): R41.0 - Disorientation, unspecified Status: Acute Assessment and Plan: Per daughter confusion is slightly worse than baseline. Likely related to infection from C dif. - Head CT unremarkable. (3) Pleural effusion: Code(s): J90 - Pleural effusion, not elsewhere classified Status: Acute Assessment and Plan: Chest XR revealed a moderately large right pleural effusion with some associated compressive atelectasis at the right lung base with little interval change since 09/09/2023. Due to the pleural effusion being stable likely not of infectious origin and more related to patients SCLC. Per daughter patient has had effusion drained twice with most recent being Apr 2023. Pleural effusion was transudative at that time. Patient no longer requiring O2 supplementation, however continues to have severe coughing episodes lasting 10 minutes leaving her fatigued. Discussed thoracentesis with patient and daughter Harini and plan all are in agreement to proceed. Will continue to hold antibiotics. - Thoracentesis ordered. Eliquis being held at this time due to scheduled procedure. - Continue to monitor ? (4) Hypoxia: Code(s): R09.02 - Hypoxemia Status: Acute Assessment and Plan: Likely related to chronic right pleural effusion and SCLC. Per daughter patient previously had home O2 supplementation. - SpO2: 88% on RA started on 3L NC. - Oxygen supplementation: 3L NC - Continue to wean oxygen as tolerated for SpO2 > 92 - Suspected cause: chronic right pleural effusion and SCLC - Chest XR: Moderately large right pleural effusion with some associated compressive atelectasis at the right lung base Little interval change since 09/09/2023? Resolved. Patient SpO2 stable on RA at this time. (5) Essential hypertension: Code(s): I10 - Essential (primary) hypertension Status: Acute Assessment and Plan: Well controlled on home medication. - Metoprolol 25 mg BID (6) Type 2 diabetes mellitus: Code(s): E11.9 - Type 2 diabetes mellitus without complications Status: Acute Assessment and Plan: - hypoglycemia protocol - POC blood glucose ACHS - home medication - metformin. Held for CT - correct regimen ordered - low dose TIDWM and HS - A1C 04/29/23: 5.5 (7) Paroxysmal atrial fibrillation: Code(s): I48.0 - Paroxysmal atrial fibrillation Status: Acute Assessment and Plan: Well controlled on current home medications. - Current home medication: amiodarone 200 mcg daily, metoprolol 25 mg BID - Anticoagulation: eliquis [address] unremarkable. (8) Small cell carcinoma of lung: Code(s): C34.90 - Malignant neoplasm of unspecified part of unspecified bronchus or lung Status: Acute Assessment and Plan: Currently on Keytruda. Last infusion 1 week ago. Spoke with Dr. Pete
[2023-09-28 08:15] LABS: Glucose Point of Care 138 mg/dl (65-105)
[2023-09-28] MEDS: APIXABAN 5 MG TABLET PO (09:30)
[2023-09-28] MEDS: CHOLECALCIFEROL 1,000 UNITS TABLET 5000 UNITS PO (09:30)
[2023-09-28] MEDS: SERTRALINE HCL 50 MG TABLET PO (09:30)
[2023-09-28] MEDS: METOPROLOL SUCCINATE EXT REL 25 MG TABCR PO ×2 (09:30→21:09)
[2023-09-28] MEDS: PANTOPRAZOLE 40 MG TABLET PO (09:31)
[2023-09-28] MEDS: FERROUS SULFATE 325 MG TABLET DR PO ×2 (09:31→16:48)
[2023-09-28] MEDS: FIDAXOMICIN 200 MG TABLET PO ×2 (09:31→21:08)
[2023-09-28] MEDS: POTASSIUM CHLORIDE 20 MEQ ER TABLET 40 MEQ PO (09:31)
--- NOTE | 2023-09-28 10:33 | P.CDI_ITS ---
CDI Query Clarification Request BMI 20.1 Nutritional Diagnostic Statement Severe protein calorie malnutrition related to chronic lung cancer and c-diff infection, as evidenced by weight loss 19%/6 months; inadequate intake <75% needs > 1 month;moderate muscle wasting and fat loss. Please refer to the comprehensive nutrition statement fro further information. Please clarify severity of protein calorie malnutrition if known: * Mild * Moderate * Severe * Other/Unspecified <Nuzhat Bryan RN - Last Filed: 09/28/23 10:39> Clarified Diagnosis Clarified Diagnosis: Severe protein calorie malnutrition <Shira Schmitt PA-C - Last Filed: 09/28/23 12:50>
[2023-09-28 11:51] LABS: Glucose Point of Care 138 mg/dl (65-105)
[2023-09-28 13:58] LABS: INR 1.4; Prothrombin Time 17.4 Seconds (11.1-14.7)
[2023-09-28 14:12] LABS: Albumin Level 3.3 g/dL (3.5-5.1); Amylase 55 U/L (30-110); Bilirubin,Total 0.5 mg/dL (0.2-1.3); Cholesterol 144 mg/dL (0-200); Glucose 134 mg/dL (65-110); Lactate Dehydrogenase 214 U/L (120-246); Triglycerides 154 mg/dL (<150)
[2023-09-28] MEDS: CENTRAL LINE FLUSH 10 ML IV PUSH ×2 (16:48→21:12)
[2023-09-28 17:01] LABS: Glucose Point of Care 106 mg/dl (65-105)
[2023-09-28] MEDS: ATORVASTATIN 20 MG TABLET PO (21:09)
[2023-09-28] MEDS: AMIODARONE HCL 200 MG TABLET PO (21:09)
[2023-09-28] MEDS: VITAMIN B COMPLEX CAPSULE 1 CAP PO (21:10)
[2023-09-28 22:04] LABS: Glucose Point of Care 117 mg/dl (65-105)
[2023-09-29] VITALS (7 sets, daily range): BP systolic 155–190; BP diastolic 92–113; PULSE 78–97; RESP 15–17; TEMP 36.3–36.6; O2SAT 95–100
[2023-09-29] MEDS: CENTRAL LINE FLUSH 10 ML IV PUSH ×3 (05:21→21:40)
[2023-09-29] MEDS: LEVOTHYROXINE SODIUM 50 MCG TABLET PO (05:21)
[2023-09-29 05:28] LABS: Basophils Percent Auto 0.4 % (0.2-1.2); Eosinophils Absolute Auto 0.1 K/mm3 (0-0.3); Eosinophils Percent Auto 0.6 % (0-4.4); Hematocrit 35.2 % (37.0-47.0); Hemoglobin 11.7 g/dL (12.0-15.0); Immature Granulocyte Absolute 0.03 K/mm3 (0.00-0.031); Immature Granulocyte Percent A 0.4 % (0-0.5); Lymphocytes Absolute Auto 0.92 K/mm3 (0.9-3.2); Lymphocytes Percent Auto 11.6 % (18.3-44.2); Mean Corpuscular HGB Conc 33.2 g/dl (32-36); Mean Corpuscular Hemoglobin 31.6 pg (26-34); Mean Corpuscular Volume 95.1 fl (80-100); Monocytes Absolute Auto 0.5 K/mm3 (0.1-0.6); Monocytes Percent Auto 5.8 % (2.6-8.5); Neutrophils Absolute Auto 6.4 K/mm3 (1.3-6.7); Neutrophils Percent Auto 81.2 % (45.5-73.1); Platelet Count Result 271 k/mm3 (150-375); Red Cell Distribution Width 14.7 % (11.5-14.5); White Blood Count 7.9 K/mm3 (4.5-10.0)
[2023-09-29 05:37] LABS: Anion Gap 6 mmol/L (4-12); Blood Urea Nitrogen 9 mg/dL (7-17); Calcium 8.8 mg/dL (8.4-10.2); Carbon Dioxide 24 mmol/L (22-30); Chloride 102 mmol/L (98-107); Estimated CRCL calculation 52 ml/min; Estimated Glomerular Filt Rate > 60; Glucose 121 mg/dL (65-110); Potassium 3.3 mmol/L (3.4-5.0); Sodium 132 mmol/L (137-145)
[2023-09-29] MEDS: SODIUM CHLOR 3% 15 ML NEB (RESPIRATORY THERAPY) 6 ML INHALATION (05:39)
[2023-09-29] MEDS: FERROUS SULFATE 325 MG TABLET DR PO ×2 (09:22→17:49)
[2023-09-29] MEDS: FIDAXOMICIN 200 MG TABLET PO ×2 (09:22→21:26)
[2023-09-29] MEDS: SERTRALINE HCL 50 MG TABLET PO (09:22)
[2023-09-29] MEDS: CHOLECALCIFEROL 1,000 UNITS TABLET 5000 UNITS PO (09:22)
[2023-09-29] MEDS: PANTOPRAZOLE 40 MG TABLET PO (09:22)
[2023-09-29] MEDS: METOPROLOL SUCCINATE EXT REL 25 MG TABCR PO ×2 (09:22→21:27)
[2023-09-29 12:14] LABS: Glucose Point of Care 141 mg/dl (65-105)
[2023-09-29 15:08] LABS: pH Pleural Fluid > 7.500 (7.210-7.500)
--- NOTE | 2023-09-29 15:14 | PM.IMPN ---
Progress Note: A&P Assessment and Plan (1) C. difficile diarrhea: Code(s): A04.72 - Enterocolitis due to Clostridium difficile, not specified as recurrent Status: Acute Assessment and Plan: Previously admitted to the hospital for C dif and discharged home on 09/12/23 on po vancomycin. Per daughter her diarrhea symptom improved after completing her antibiotic course, however she later developed severe diarrhea. She states that she had 8-9 episodes of diarrhea causing her to be incontinent prior to admission. She continues to have several episodes of diarrhea, but denies associated abdominal pain. She is tolerating her current diet well and was noted to eat more today than yesterday. - CT abdomen/pelvis: New hepatic metastasis since 04/19/23. Thickening along the rectum and colon consistent with proctocolitis Middle and right lower lobe atelectasis due to bronchial occlusion; right hilar and subcarinal lymphadenopathy. Cardiomegaly. Right pleural effusion. Hepatic cysts, left renal cyst - IV fluids - Dificid (2) Confusion: Code(s): R41.0 - Disorientation, unspecified Status: Acute Assessment and Plan: Per daughter confusion is slightly worse than baseline. Likely related to infection from C dif. - Head CT unremarkable. (3) Pleural effusion: Code(s): J90 - Pleural effusion, not elsewhere classified Status: Acute Assessment and Plan: Chest XR revealed a moderately large right pleural effusion with some associated compressive atelectasis at the right lung base with little interval change since 09/09/2023. Due to the pleural effusion being stable likely not of infectious origin and more related to patients SCLC. Per daughter patient has had effusion drained twice with most recent being Apr 2023. Pleural effusion was transudative at that time. Patient no longer requiring O2 supplementation, however continues to have severe coughing episodes lasting 10 minutes leaving her fatigued. Discussed thoracentesis with patient and daughter Harini and plan all are in agreement to proceed. Will continue to hold antibiotics. - Thoracentesis today. - pleural fluid labs ordered - Continue to monitor ? (4) Hypoxia: Code(s): R09.02 - Hypoxemia Status: Resolved Assessment and Plan: Likely related to chronic right pleural effusion and SCLC. Per daughter patient previously had home O2 supplementation. - Suspected cause: chronic right pleural effusion and SCLC - Chest XR: Moderately large right pleural effusion with some associated compressive atelectasis at the right lung base Little interval change since 09/09/2023? Resolved. Patient SpO2 stable on RA at this time. (5) Essential hypertension: Code(s): I10 - Essential (primary) hypertension Status: Chronic Assessment and Plan: Well controlled on home medication. - Metoprolol 25 mg BID (6) Type 2 diabetes mellitus: Code(s): E11.9 - Type 2 diabetes mellitus without complications Status: Chronic Assessment and Plan: - hypoglycemia protocol - POC blood glucose ACHS - correct regimen ordered - low dose TIDWM and HS - A1C 04/29/23: 5.5 (7) Paroxysmal atrial fibrillation: Code(s): I48.0 - Paroxysmal atrial fibrillation Status: Chronic Assessment and Plan: Well controlled on current home medications. - Current home medication: amiodarone 200 mcg daily, metoprolol 25 mg BID - Anticoagulation: eliquis 5 mg BID. (8) Small cell carcinoma of lung: Code(s): C34.90 - Malignant neoplasm of unspecified part of unspecified bronchus or lung Status: Acute Assessment and Plan: Currently on Keytruda. Last infusion 1 week ago. Spoke with Dr. Max and if plan to continue treatment will follow up outpatient. Subjective Date/time seen: 09/29/23 15:14 Interval history: Patient is alert today, but only responds to some questions with yes or no answers.
[2023-09-29 17:44] LABS: Glucose Point of Care 112 mg/dl (65-105)
[2023-09-29 18:06] LABS: Appearance Pleural Fluid Clear (Clear); Color Pleural Fluid Yellow (Colorless); Pleural fluid source Pleural fluid
[2023-09-29 18:08] LABS: Lymphocytes Pleural Fluid 67 %; Macrophages Pleural Fluid 2 %; Mesothelial Cells Pleural Flui 3 %; Monocytes Pleural Fluid 14 %; Neutrophils Pleural Fluid 14 % (0-25)
[2023-09-29 21:10] LABS: Glucose Point of Care 140 mg/dl (65-105)
[2023-09-29] MEDS: APIXABAN 5 MG TABLET PO (21:26)
[2023-09-29] MEDS: VITAMIN B COMPLEX CAPSULE 1 CAP PO (21:26)
[2023-09-29] MEDS: ATORVASTATIN 20 MG TABLET PO (21:27)
[2023-09-29] MEDS: AMIODARONE HCL 200 MG TABLET PO (21:27)
[2023-09-30] MEDS: SODIUM CHLOR 3% 15 ML NEB (RESPIRATORY THERAPY) 6 ML INHALATION (05:27)
[2023-09-30] MEDS: LEVOTHYROXINE SODIUM 50 MCG TABLET PO (06:07)
[2023-09-30] MEDS: CENTRAL LINE FLUSH 10 ML IV PUSH ×3 (06:07→21:44)
[2023-09-30 06:29] LABS: Basophils Percent Auto 0.3 % (0.2-1.2); Eosinophils Percent Auto 0.4 % (0-4.4); Hemoglobin 12.1 g/dL (12.0-15.0); Immature Granulocyte Absolute 0.06 K/mm3 (0.00-0.031); Immature Granulocyte Percent A 0.7 % (0-0.5); Lymphocytes Absolute Auto 0.93 K/mm3 (0.9-3.2); Lymphocytes Percent Auto 10.1 % (18.3-44.2); Mean Corpuscular HGB Conc 32.7 g/dl (32-36); Mean Corpuscular Hemoglobin 31.2 pg (26-34); Mean Corpuscular Volume 95.4 fl (80-100); Mean Platelet Volume 9.3 fl (7.4-10.4); Monocytes Absolute Auto 0.6 K/mm3 (0.1-0.6); Monocytes Percent Auto 6.6 % (2.6-8.5); Neutrophils Absolute Auto 7.5 K/mm3 (1.3-6.7); Neutrophils Percent Auto 81.9 % (45.5-73.1); Platelet Count Result 302 k/mm3 (150-375); Red Blood Count 3.88 M/mm3 (4.2-5.4); Red Cell Distribution Width 14.7 % (11.5-14.5); White Blood Count 9.2 K/mm3 (4.5-10.0)
[2023-09-30 06:37] LABS: Anion Gap 11 mmol/L (4-12); Blood Urea Nitrogen 16 mg/dL (7-17); Carbon Dioxide 22 mmol/L (22-30); Chloride 100 mmol/L (98-107); Estimated CRCL calculation 41 ml/min; Estimated Glomerular Filt Rate > 60; Glucose 114 mg/dL (65-110); Potassium 3.5 mmol/L (3.4-5.0); Sodium 133 mmol/L (137-145)
[2023-09-30 07:03] VITALS: BP 162/88; PULSE 86; RESP 16; TEMP 36.7; O2SAT 93
[2023-09-30 08:17] LABS: Glucose Point of Care 131 mg/dl (65-105)
[2023-09-30 08:28] VITALS: O2SAT 93
[2023-09-30 08:36] VITALS: PULSE 86
[2023-09-30] MEDS: SERTRALINE HCL 50 MG TABLET PO (08:36)
[2023-09-30] MEDS: METOPROLOL SUCCINATE EXT REL 25 MG TABCR PO ×2 (08:36→21:43)
[2023-09-30] MEDS: CHOLECALCIFEROL 1,000 UNITS TABLET 5000 UNITS PO (08:36)
[2023-09-30] MEDS: PANTOPRAZOLE 40 MG TABLET PO (08:36)
[2023-09-30] MEDS: APIXABAN 5 MG TABLET PO ×2 (08:36→21:43)
[2023-09-30] MEDS: FIDAXOMICIN 200 MG TABLET PO ×2 (08:36→21:44)
[2023-09-30] MEDS: FERROUS SULFATE 325 MG TABLET DR PO ×2 (08:36→17:51)
[2023-09-30 12:21] LABS: Glucose Point of Care 125 mg/dl (65-105)
--- NOTE | 2023-09-30 15:05 | PM.IMPN ---
Progress Note: A&P Assessment and Plan (1) C. difficile diarrhea: Code(s): A04.72 - Enterocolitis due to Clostridium difficile, not specified as recurrent Status: Acute Assessment and Plan: Previously admitted to the hospital for C dif and discharged home on 09/12/23 on po vancomycin. Per daughter her diarrhea symptom improved after completing her antibiotic course, however she later developed severe diarrhea. She states that she had 8-9 episodes of diarrhea causing her to be incontinent prior to admission. She continues to have several episodes of diarrhea, but denies associated abdominal pain. She is tolerating her current diet well and was noted to eat more today than yesterday. - CT abdomen/pelvis: New hepatic metastasis since 04/19/23. Thickening along the rectum and colon consistent with proctocolitis Middle and right lower lobe atelectasis due to bronchial occlusion; right hilar and subcarinal lymphadenopathy. Cardiomegaly. Right pleural effusion. Hepatic cysts, left renal cyst - continue Dificid, but patient may need transition to Vancomycin for d/c to hospice. - no episodes of diarrhea since yesterday morning - labs and WBC stable (2) Confusion: Code(s): R41.0 - Disorientation, unspecified Status: Acute Assessment and Plan: Per daughter confusion is slightly worse than baseline. Likely related to infection from C dif. - Head CT unremarkable. (3) Pleural effusion: Code(s): J90 - Pleural effusion, not elsewhere classified Status: Acute Assessment and Plan: Chest XR revealed a moderately large right pleural effusion with some associated compressive atelectasis at the right lung base with little interval change since 09/09/2023. Due to the pleural effusion being stable likely not of infectious origin and more related to patients SCLC. Per daughter patient has had effusion drained twice with most recent being Apr 2023. Pleural effusion was transudative at that time. Patient no longer requiring O2 supplementation, however continues to have severe coughing episodes lasting 10 minutes leaving her fatigued. Discussed thoracentesis with patient and daughter Harini and plan all are in agreement to proceed. Will continue to hold antibiotics. - s/p Thoracentesis - pleural fluid labs collected - improvement in cough ? (4) Hypoxia: Code(s): R09.02 - Hypoxemia Status: Resolved Assessment and Plan: Likely related to chronic right pleural effusion and SCLC. Per daughter patient previously had home O2 supplementation. - Suspected cause: chronic right pleural effusion and SCLC - Chest XR: Moderately large right pleural effusion with some associated compressive atelectasis at the right lung base Little interval change since 09/09/2023? Resolved. Patient SpO2 stable on RA at this time. (5) Essential hypertension: Code(s): I10 - Essential (primary) hypertension Status: Chronic Assessment and Plan: Well controlled on home medication. - Metoprolol 25 mg BID (6) Type 2 diabetes mellitus: Code(s): E11.9 - Type 2 diabetes mellitus without complications Status: Chronic Assessment and Plan: - hypoglycemia protocol - POC blood glucose ACHS - correct regimen ordered - low dose TIDWM and HS - A1C 04/29/23: 5.5 (7) Paroxysmal atrial fibrillation: Code(s): I48.0 - Paroxysmal atrial fibrillation Status: Chronic Assessment and Plan: Well controlled on current home medications. - Current home medication: amiodarone 200 mcg daily, metoprolol 25 mg BID - Anticoagulation: eliquis 5 mg BID. (8) Small cell carcinoma of lung: Code(s): C34.90 - Malignant neoplasm of unspecified part of unspecified bronchus or lung Status: Acute Assessment and Plan: Currently on Keytruda. Last infusion 1 week ago. Spoke with Dr. Max and if plan to continue treatment will follow up outpatient. Plan Patient fa
[2023-09-30 16:00] VITALS: BP 150/84; PULSE 82; RESP 15; TEMP 36.5; O2SAT 94
[2023-09-30] MEDS: ACETAMINOPHEN 325 MG TABLET 650 MG PO (17:51)
[2023-09-30 20:20] LABS: Glucose Point of Care 117 mg/dl (65-105)
[2023-09-30 21:08] VITALS: BP 156/90; PULSE 86; RESP 20; TEMP 36.8; O2SAT 98
[2023-09-30 21:43] VITALS: PULSE 86
[2023-09-30] MEDS: ATORVASTATIN 20 MG TABLET PO (21:43)
[2023-09-30] MEDS: VITAMIN B COMPLEX CAPSULE 1 CAP PO (21:43)
[2023-09-30] MEDS: AMIODARONE HCL 200 MG TABLET PO (21:43)
[2023-10-01 04:55] VITALS: PULSE 93
[2023-10-01] MEDS: SODIUM CHLOR 3% 15 ML NEB (RESPIRATORY THERAPY) 6 ML INHALATION (04:55)
[2023-10-01 05:48] VITALS: BP 170/96; PULSE 91; RESP 16; TEMP 36.6; O2SAT 98
[2023-10-01] MEDS: LEVOTHYROXINE SODIUM 50 MCG TABLET PO (06:09)
[2023-10-01] MEDS: CENTRAL LINE FLUSH 10 ML IV PUSH ×2 (06:09→14:07)
[2023-10-01 06:22] LABS: Basophils Percent Auto 0.3 % (0.2-1.2); Hematocrit 36.2 % (37.0-47.0); Hemoglobin 11.9 g/dL (12.0-15.0); Immature Granulocyte Absolute 0.08 K/mm3 (0.00-0.031); Immature Granulocyte Percent A 0.8 % (0-0.5); Lymphocytes Absolute Auto 0.54 K/mm3 (0.9-3.2); Lymphocytes Percent Auto 5.2 % (18.3-44.2); Mean Corpuscular HGB Conc 32.9 g/dl (32-36); Mean Corpuscular Hemoglobin 31.1 pg (26-34); Mean Corpuscular Volume 94.5 fl (80-100); Mean Platelet Volume 9.2 fl (7.4-10.4); Monocytes Absolute Auto 0.6 K/mm3 (0.1-0.6); Neutrophils Absolute Auto 9.2 K/mm3 (1.3-6.7); Neutrophils Percent Auto 87.7 % (45.5-73.1); Platelet Count Result 293 k/mm3 (150-375); Red Blood Count 3.83 M/mm3 (4.2-5.4); Red Cell Distribution Width 14.9 % (11.5-14.5); White Blood Count 10.5 K/mm3 (4.5-10.0)
[2023-10-01 06:31] LABS: Anion Gap 9 mmol/L (4-12); Blood Urea Nitrogen 21 mg/dL (7-17); Carbon Dioxide 23 mmol/L (22-30); Chloride 101 mmol/L (98-107); Estimated CRCL calculation 38 ml/min; Estimated Glomerular Filt Rate > 60; Glucose 109 mg/dL (65-110); Potassium 3.4 mmol/L (3.4-5.0); Sodium 133 mmol/L (137-145)
[2023-10-01 08:57] LABS: Glucose Point of Care 109 mg/dl (65-105)
--- NOTE | 2023-10-01 08:57 | PM.IMPN ---
Progress Note: A&P Assessment and Plan (1) C. difficile diarrhea: Code(s): A04.72 - Enterocolitis due to Clostridium difficile, not specified as recurrent Status: Acute Assessment and Plan: Previously admitted to the hospital for C dif and discharged home on 09/12/23 on po vancomycin. Per daughter her diarrhea symptom improved after completing her antibiotic course, however she later developed severe diarrhea. She states that she had 8-9 episodes of diarrhea causing her to be incontinent prior to admission. She continues to have several episodes of diarrhea, but denies associated abdominal pain. She is tolerating her current diet well and was noted to eat more today than yesterday. - CT abdomen/pelvis: New hepatic metastasis since 04/19/23. Thickening along the rectum and colon consistent with proctocolitis Middle and right lower lobe atelectasis due to bronchial occlusion; right hilar and subcarinal lymphadenopathy. Cardiomegaly. Right pleural effusion. Hepatic cysts, left renal cyst - continue Dificid, but patient may need transition to Vancomycin for d/c to hospice. Diarrhea slowed down Labs and WBC stable (2) Confusion: Code(s): R41.0 - Disorientation, unspecified Status: Acute Assessment and Plan: Per daughter confusion is slightly worse than baseline. Likely related to infection from C dif. - Head CT unremarkable. (3) Pleural effusion: Code(s): J90 - Pleural effusion, not elsewhere classified Status: Acute Assessment and Plan: Chest XR revealed a moderately large right pleural effusion with some associated compressive atelectasis at the right lung base with little interval change since 09/09/2023. Due to the pleural effusion being stable likely not of infectious origin and more related to patients SCLC. Per daughter patient has had effusion drained twice with most recent being Apr 2023. Pleural effusion was transudative at that time. Patient no longer requiring O2 supplementation, however continues to have severe coughing episodes lasting 10 minutes leaving her fatigued. Discussed thoracentesis with patient and daughter Harini and plan all are in agreement to proceed. Will continue to hold antibiotics. - s/p Thoracentesis - pleural fluid labs collected 800 mL of yellow fluid: Lymphocytic fluid. Cultures negative to date - improvement in cough ? (4) Hypoxia: Code(s): R09.02 - Hypoxemia Status: Resolved Assessment and Plan: Likely related to chronic right pleural effusion and SCLC. Per daughter patient previously had home O2 supplementation. - Suspected cause: chronic right pleural effusion and SCLC - Chest XR: Moderately large right pleural effusion with some associated compressive atelectasis at the right lung base Little interval change since 09/09/2023? Resolved. Patient SpO2 stable on RA at this time. (5) Essential hypertension: Code(s): I10 - Essential (primary) hypertension Status: Chronic Assessment and Plan: Well controlled on home medication. - Metoprolol 25 mg BID (6) Type 2 diabetes mellitus: Code(s): E11.9 - Type 2 diabetes mellitus without complications Status: Chronic Assessment and Plan: - hypoglycemia protocol - POC blood glucose ACHS - correct regimen ordered - low dose TIDWM and HS - A1C 04/29/23: 5.5 (7) Paroxysmal atrial fibrillation: Code(s): I48.0 - Paroxysmal atrial fibrillation Status: Chronic Assessment and Plan: Well controlled on current home medications. - Current home medication: amiodarone 200 mcg daily, metoprolol 25 mg BID - Anticoagulation: eliquis 5 mg BID. (8) Small cell carcinoma of lung: Code(s): C34.90 - Malignant neoplasm of unspecified part of unspecified bronchus or lung Status: Acute Assessment and Plan: Currently on Keytruda. Last infusion 1 week ago. Spoke with Dr. Max and if plan to continue treatment will benjamin
[2023-10-01 09:02] VITALS: O2SAT 97
[2023-10-01] MEDS: APIXABAN 5 MG TABLET PO (09:30)
[2023-10-01] MEDS: CHOLECALCIFEROL 1,000 UNITS TABLET 5000 UNITS PO (09:30)
[2023-10-01] MEDS: SERTRALINE HCL 50 MG TABLET PO (09:31)
[2023-10-01] MEDS: FIDAXOMICIN 200 MG TABLET PO (09:32)
[2023-10-01 12:43] LABS: Glucose Point of Care 138 mg/dl (65-105)
--- NOTE | 2023-10-01 14:22 | PC.NURSE ---
On 10/01/23, the student, [Belgica Zamudio], provided care and completed [facility] documentation on this patient. I have reviewed the student's documentation and agree with the findings.
--- NOTE | 2023-10-01 15:21 | PM.DS ---
DS: Admitting Diagnosis Discharge Date 10/01/23 Admitting Diagnosis generalized weakness DS: Discharge Diagnosis Discharge Diagnosis (1) C. difficile diarrhea: Code(s): A04.72 - Enterocolitis due to Clostridium difficile, not specified as recurrent Status: Acute (2) Confusion: Code(s): R41.0 - Disorientation, unspecified Status: Acute (3) Pleural effusion: Code(s): J90 - Pleural effusion, not elsewhere classified Status: Acute (4) Hypoxia: Code(s): R09.02 - Hypoxemia Status: Resolved (5) Essential hypertension: Code(s): I10 - Essential (primary) hypertension Status: Chronic (6) Type 2 diabetes mellitus: Code(s): E11.9 - Type 2 diabetes mellitus without complications Status: Chronic (7) Paroxysmal atrial fibrillation: Code(s): I48.0 - Paroxysmal atrial fibrillation Status: Chronic (8) Small cell carcinoma of lung: Code(s): C34.90 - Malignant neoplasm of unspecified part of unspecified bronchus or lung Status: Acute DS: Summary Hospital Course Hospital Course: # C. difficile diarrhea: Previously admitted to the hospital for C dif and discharged home on 09/12/23 on po vancomycin. Per daughter her diarrhea symptom improved after completing her antibiotic course, however she later developed severe diarrhea. She states that she had 8-9 episodes of diarrhea causing her to be incontinent prior to admission. She continues to have several episodes of diarrhea, but denies associated abdominal pain. She is tolerating her current diet well and was noted to eat more today than yesterday. - CT abdomen/pelvis: New hepatic metastasis since 04/19/23. Thickening along the rectum and colon consistent with proctocolitis Middle and right lower lobe atelectasis due to bronchial occlusion; right hilar and subcarinal lymphadenopathy. Cardiomegaly. Right pleural effusion. Hepatic cysts, left renal cyst - continue Dificid, but patient may need transition to Vancomycin for d/c to hospice. Diarrhea slowed down Labs and WBC stable # Confusion: Per daughter confusion is slightly worse than baseline. Likely related to infection from C dif. - Head CT unremarkable. # Pleural effusion: Chest XR revealed a moderately large right pleural effusion with some associated compressive atelectasis at the right lung base with little interval change since 09/09/2023. Due to the pleural effusion being stable likely not of infectious origin and more related to patients SCLC. Per daughter patient has had effusion drained twice with most recent being Apr 2023. Pleural effusion was transudative at that time. Patient no longer requiring O2 supplementation, however continues to have severe coughing episodes lasting 10 minutes leaving her fatigued. Discussed thoracentesis with patient and daughter Sierra and Holly and plan all are in agreement to proceed. Will continue to hold antibiotics. - s/p Thoracentesis - pleural fluid labs collected 800 mL of yellow fluid:? Lymphocytic fluid.? Cultures negative to date - improvement in cough ? # Hypoxia: Likely related to chronic right pleural effusion and SCLC. Per daughter patient previously had home O2 supplementation. - Suspected cause: chronic right pleural effusion and SCLC - Chest XR: Moderately large right pleural effusion with some associated compressive atelectasis at the right lung base Little interval change since 09/09/2023? Resolved. Patient SpO2 stable on RA at this time. # Essential hypertension: Well controlled on home medication. - Metoprolol 25 mg BID # Type 2 diabetes mellitus: - hypoglycemia protocol - POC blood glucose ACHS - correct regimen ordered - low dose TIDWM and HS - A1C 04/29/23: 5.5 # Paroxysmal atrial fibrillation: Well controlled on current home medications. - Current home medication: amiodarone 200 mcg daily, metoprolol 25 mg BID - Anticoagulation: eliquis 5 mg BID. # Small cell carcinoma of l
[2023-10-01 16:51] VITALS: BP 192/96; PULSE 98; RESP 18; O2SAT 98
[2023-10-01 17:33] LABS: Glucose Point of Care 119 mg/dl (65-105)
[2023-10-01 18:02] VITALS: PULSE 98
[2023-10-01] MEDS: HEPARIN SODIUM LOCK FLUSH 500 UNITS/5 ML SYRINGE IV PUSH (18:02)
[2023-10-01] MEDS: FERROUS SULFATE 325 MG TABLET DR PO (18:02)
[2023-10-01] MEDS: METOPROLOL SUCCINATE EXT REL 25 MG TABCR PO (18:02)
[2023-10-11 07:25] LABS: Amylase, Pleural Fluid 14 U/L; Glucose Pleural Fluid 120 mg/dL; LDH Pleural Fluid 75 U/L; Total Protein Pleural Fluid <3.0 g/dL
== END 2023-10-01 19:00 | disposition hospice, inpatient (51) | DRG 371 ==
LOC: ANHED 12:50 → ANH2MED 15:38
PROVIDERS: Physician Assistant; Student in an Organized Health Care Education/Training Program; Admitting Provider Internal Medicine; Emergency Provider Emergency Medicine; PCP Family Medicine; Visit Provider Internal Medicine
DX: A04.72 Enterocolitis due to Clostridium difficile, not specified as recurrent (principal); E43 Unspecified severe protein-calorie malnutrition; C34.90 Malignant neoplasm of unspecified part of unspecified bronchus or lung; I42.0 Dilated cardiomyopathy; J90 Pleural effusion, not elsewhere classified; I48.0 Paroxysmal atrial fibrillation; I10 Essential (primary) hypertension; E03.9 Hypothyroidism, unspecified; E78.2 Mixed hyperlipidemia; E11.9 Type 2 diabetes mellitus without complications; M10.9 Gout, unspecified; F41.9 Anxiety disorder, unspecified; F32.A Depression, unspecified; Z79.01 Long term (current) use of anticoagulants; Z95.0 Presence of cardiac pacemaker; Z87.891 Personal history of nicotine dependence; Z51.5 Encounter for palliative care; Z68.20 Body mass index [BMI] 20.0-20.9, adult
CPT/HCPCS: 32555; 36415; 70450; 71046; 71260; 74177; 80047; 80048; 80053; 81003; 82040; 82042; 82150; 82247; 82465; 82607; 82945; 82947; 82948; 83605; 83615; 83735; 83986; 84132; 84155; 84157; 84311; 84439; 84443; 84478; 84480; 85025; 85610; 85730; 87015; 87040; 87070; 87075; 87102; 87116; 87205; 87206; 87493; 87641; 88108; 88184; 88305; 88342; 89051; 93005; 94640; 96361; 96365; 96375; 97110; 97161; 97165; 97530; 99285; A9270; G0378; J0692; J1642; J3370; J3480; J7030; J7040; Q9967